=== PATIENT | female | born 1935 | race Caucasian/White ===

== ENCOUNTER 2018-08-18 09:26 | Emergency (ER) | payer MEDICARE, OTHER ==
--- NOTE | 2018-08-18 10:07 | ERPHSYRPT ---
- History of Present Illness Time Seen by Provider: 08/18/18 09:55 Source: patient, family Exam Limitations: no limitations Patient Subjective Stated Complaint: bilateral leg swelling, left arm swollen, heart burn, left shoulder pain Triage Nursing Assessment: Pt c/o of bilateral leg swelling, breasts swollen, left arm swelling, heartburn, left shoulder pain, non pitting, skin tight in legs, lungs clear, denies shortness of breath, denies any other problems, vitals wnl, pulses good Physician History: The patient is an 83-year-old female with her daughter complaining of swelling in both legs, swelling to her left hand, arm, shoulder, pain in her left shoulder, pain in her left neck. The swelling and pain has been for 2 weeks. She also has some heartburn. She has swelling across her breasts. She has intermittent shortness of breath when she gets up and moves around. She denies cough or fever. Her calves are "tight". The back of her legs feel "weak". She lives alone. Her past medical history is significant for HTN. Timing/Duration: week(s) (2), gradual onset Severity: mild Modifying Factors: Improves With: nothing Associated Symptoms: shortness of breath, heartburn Allergies/Adverse Reactions: meperidine [From Demerol] Allergy (Verified 08/18/18 09:41) cefaclor [From Ceclor] Adverse Reaction (Verified 08/18/18 09:41) Vomiting Penicillins Adverse Reaction (Verified 08/18/18 09:41) shakes Home Medications: Enalapril/Hydrochlorothiazide [Enalapril-Hctz 10-25 mg Tablet] 1 each PO DAILY 01/23/14 [History] Metoprolol Succinate 50 mg [Toprol Xl 50 MG] 50 mg PO DAILY 01/23/14 [ History] Potassium Chloride 10 Meq Tab* [Klor Con 10 MEQ] 10 meq PO DAILY 01/23/14 [ History] Hx Tetanus, Diphtheria Vaccination/Date Given: No Hx Influenza Vaccination/Date Given: No Hx Pneumococcal Vaccination/Date Given: No - Review of Systems Constitutional: Weakness (back of her legs) Eyes: No Symptoms Ears, Nose, & Throat: No Symptoms Respiratory: Dyspnea on Exertion (LU) Cardiac: Edema Abdominal/Gastrointestinal: No Abdominal Pain, No Nausea, No Vomiting, No Diarrhea Genitourinary Symptoms: No Dysuria Musculoskeletal: No Back Pain, No Neck Pain Skin: No Rash Neurological: No Dizziness, No Focal Weakness, No Sensory Changes Psychological: No Symptoms Endocrine: No Symptoms Hematologic/Lymphatic: No Symptoms Immunological/Allergic: No Symptoms All Other Systems: Reviewed and Negative - Past Medical History Pertinent Past Medical History: Yes Cardiac History: High Cholesterol, Hypertension - Past Surgical History Past Surgical History: Yes Gastrointestinal: Cholecystectomy Musculoskeletal: Orthopedic Surgery Female Surgical History: Hysterectomy Other Surgical History: Lamenectomy, Rotator Cuff-Left, Back Surgery - Social History Smoking Status: Never smoker Exposure to second hand smoke: No Drug Use: none Patient Lives Alone: Yes - Female History Hx Now: No - Nursing Vital Signs Nursing Vital Signs: Initial Vital Signs Temperature 98.2 F 08/18/18 09:29 Pulse Rate 73 08/18/18 09:29 Respiratory Rate 19 08/18/18 09:29 Blood Pressure 127/80 08/18/18 09:29 O2 Sat by Pulse Oximetry 98 08/18/18 09:29 Pain Scale Pain Intensity 0 - Physical Exam General Appearance: no apparent distress, alert Eye Exam: PERRL/EOMI, eyes nml inspection Ears, Nose, Throat Exam: normal ENT inspection, TMs normal, pharynx normal, moist mucous membranes Neck Exam: supple, limited range of motion, other (tenderness and spasm of left lateral muscle) Respiratory Exam: normal breath sounds, lungs clear, No respiratory distress, No crackles/rales, No rhonchi, No wheezing Cardiovascular Exam: regular rate/rhythm, normal heart sounds, normal peripheral pulses Gastrointestinal/Abdomen Exam: soft, normal bowel sounds, No tenderness, No mass Pelvic Exam: not done Rectal Exam: not done Back Exam: normal inspection, normal range of motion, No CVA tenderness, No vertebral tenderness Extremity Exam: swelling (Even though the patient states that both of her lower legs are swollen, there appears not to be any edema at the ankles. There is no pittingf the anterior lower legs. The patient points to a small spot to the thumb side of her left wrist that she states is swollen. In comparison to the right wrist, there may be some very mild swelling. The left arm does not appear to me to be swollen in comparison to the right arm. The left side of her neck does not seem to be swollen.) Neurologic Exam: alert, oriented x 3, cooperative, normal mood/affect, nml cerebellar function, nml station & gait, sensation nml, No motor deficits Skin Exam: normal color, warm, dry, No rash Lymphatic Exam: No adenopathy SpO2 Interpretation: normal SpO2: 98 Oxygen Delivery: Room Air - Course EKG Interpreted by Me: RATE, Sinus Rhythm, NORMAL AXIS, NORMAL INTERVALS, NORMAL QRS, NORMAL ST-T - Radiology Exams Chest X-ray Interpretation: Reviewed by me, Teleradiologist Report (per Dr Fernandes), Negative - Radiology Ultrasound Exam Venous Lower Extremity Ultrasound: tele radiology report (per [facility]), negative, Other (no DVT) Ordered Tests: Active Orders 24 hr Category Date Time Status Candy Maker Helper STAT Care 08/18/18 10:08 Active Clean Catch Urine Specimen STAT Care 08/18/18 10:06 Active EKG-ER Only STAT Care 08/18/18 10:06 Active IV Insertion STAT Care 08/18/18 10:06 Active Pulse Oximetry (ED) STAT Care 08/18/18 10:06 Active CHEST 2 VIEWS (PA AND LAT) Stat Exams 08/18/18 10:07 Completed VENOUS BILATERAL EXTREMITY [US] Stat Exams 08/18/18 10:58 Completed CBC W DIFF Stat Lab 08/18/18 10:23 Completed CMP Stat Lab 08/18/18 10:23 Completed D-DIMER QUANTITATION Stat Lab 08/18/18 10:23 Completed Lactic Acid Stat Lab 08/18/18 10:30 Results NT PRO BNP Stat Lab 08/18/18 10:23 Completed PROTIME WITH INR Stat Lab 08/18/18 10:23 Completed TROPONIN Q3H Lab 08/18/18 10:23 Completed TROPONIN Q3H Lab 08/18/18 13:15 Ordered TROPONIN Q3H Lab 08/18/18 16:15 Ordered TROPONIN Q3H Lab 08/18/18 19:15 Ordered TROPONIN Q3H Lab 08/18/18 22:15 Ordered UA W/RFX UR CULTURE Stat Lab 08/18/18 10:23 Completed Lab/Rad Data: Laboratory Result Diagrams 08/18/18 10:23 08/18/18 10:23 Laboratory Results 08/18/18 08/18/18 08/18/18 Range/Units 10:30 10:23 10:23 WBC (4.0-10.5) K/mm3 RBC (4.1-5.4) M/mm3 Hgb (12.0-16.0) gm/dl Hct (35-47) % MCV (78-100) fl MCH (26-32) pg MCHC (32-36) g/dl RDW (11.5-14.0) % Plt Count (150-450) K/mm3 MPV (6-9.5) fl Gran % (36.0-66.0) % Eos # (Auto) (0-0.5) Absolute Lymphs (auto) (1.0-4.6) Absolute Monos (auto) (0.0-1.3) Lymphocytes % (24.0-44.0) % Monocytes % (0.0-12.0) % Eosinophils % (0.00-5.0) % Basophils % (0.0-0.4) % Absolute Granulocytes (1.4-6.9) Basophils # (0-0.4) PT (9.95-12.35) SECONDS INR (0.8-3.0) D-Dimer (215-500) ng/mL Sodium (137-145) mmol/L Potassium (3.5-5.1) mmol/L Chloride (98-107) mmol/L Carbon Dioxide (22-30) mmol/L Anion Gap (5-15) MEQ/L BUN (7-17) mg/dL Creatinine (0.52-1.04) mg/dL Estimated GFR ML/MIN Glucose (74-106) mg/dL Lactic Acid 2.2 H (0.4-2.0) Calcium (8.4-10.2) mg/dL Total Bilirubin (0.2-1.3) mg/dL AST (14-36) U/L ALT (0-35) U/L Alkaline Phosphatase (38-126) U/L Troponin I 0.013 (0.000-0.034) ng/mL NT-Pro-B Natriuret Pep (0-1800) pg/mL Serum Total Protein (6.3-8.2) g/dL Albumin (3.5-5.0) g/dL Urine Color STRAW (YELLOW) Urine Appearance SLIGHTLY CLOUDY (CLEAR) Urine pH 5.0 (5-6) Ur Specific Calhoun 1.006 (1.005-1.025) Urine Protein NEGATIVE (Negative) Urine Ketones NEGATIVE (NEGATIVE) Urine Blood NEGATIVE (0-5) Anibal/ul Urine Nitrite NEGATIVE (NEGATIVE) Urine Bilirubin NEGATIVE (NEGATIVE) Urine Urobilinogen NEGATIVE (0-1) mg/dL Ur Leukocyte Esterase NEGATIVE (NEGATIVE) Urine WBC (Auto) NONE (0-5) /HPF Urine RBC (Auto) NONE SEEN (0-2) /HPF U Epithel Cells (Auto) RARE (FEW) /HPF Urine Bacteria (Auto) RARE (NEGATIVE) /HPF Other Casts (Auto) NEGATIVE (NEGATIVE) /LPF Urine Mucus (Auto) SLIGHT (NEGATIVE) /HPF Urine Culture Reflexed NO (NO) Urine Glucose NEGATIVE (NEGATIVE) mg/dL 08/18/18 08/18/18 08/18/18 Range/Units 10:23 10:23 10:23 WBC 7.1 (4.0-10.5) K/mm3 RBC 4.69 (4.1-5.4) M/mm3 Hgb 15.5 (12.0-16.0) gm/dl Hct 45.3 (35-47) % MCV 96.6 (78-100) fl MCH 33.0 H (26-32) pg MCHC 34.2 (32-36) g/dl RDW 12.7 (11.5-14.0) % Plt Count 234 (150-450) K/mm3 MPV 11.1 H (6-9.5) fl Gran % 56.8 (36.0-66.0) % Eos # (Auto) 0.04 (0-0.5) Absolute Lymphs (auto) 2.49 (1.0-4.6) Absolute Monos (auto) 0.50 (0.0-1.3) Lymphocytes % 34.9 (24.0-44.0) % Monocytes % 7.0 (0.0-12.0) % Eosinophils % 0.6 (0.00-5.0) % Basophils % 0.7 (0.0-0.4) % Absolute Granulocytes 4.05 (1.4-6.9) Basophils # 0.05 (0-0.4) PT 10.5 (9.95-12.35) SECONDS INR 0.90 (0.8-3.0) D-Dimer 282 (215-500) ng/mL Sodium 139 (137-145) mmol/L Potassium 4.8 (3.5-5.1) mmol/L Chloride 101 (98-107) mmol/L Carbon Dioxide 25 (22-30) mmol/L Anion Gap 17.4 H (5-15) MEQ/L BUN 19 H (7-17) mg/dL Creatinine 0.63 (0.52-1.04) mg/dL Estimated GFR > 60.0 ML/MIN Glucose 101 (74-106) mg/dL Lactic Acid (0.4-2.0) Calcium 9.5 (8.4-10.2) mg/dL Total Bilirubin 0.80 (0.2-1.3) mg/dL AST 39 H (14-36) U/L ALT 28 (0-35) U/L Alkaline Phosphatase 70 (38-126) U/L Troponin I (0.000-0.034) ng/mL NT-Pro-B Natriuret Pep 223 (0-1800) pg/mL Serum Total Protein 8.1 (6.3-8.2) g/dL Albumin 4.7 (3.5-5.0) g/dL Urine Color (YELLOW) Urine Appearance (CLEAR) Urine pH (5-6) Ur Specific Calhoun (1.005-1.025) Urine Protein (Negative) Urine Ketones (NEGATIVE) Urine Blood (0-5) Anibal/ul Urine Nitrite (NEGATIVE) Urine Bilirubin (NEGATIVE) Urine Urobilinogen (0-1) mg/dL Ur Leukocyte Esterase (NEGATIVE) Urine WBC (Auto) (0-5) /HPF Urine RBC (Auto) (0-2) /HPF U Epithel Cells (Auto) (FEW) /HPF Urine Bacteria (Auto) (NEGATIVE) /HPF Other Casts (Auto) (NEGATIVE) /LPF Urine Mucus (Auto) (NEGATIVE) /HPF Urine Culture Reflexed (NO) Urine Glucose (NEGATIVE) mg/dL - Progress Progress: unchanged Progress Note: 08/18/18 11:58 I discussed all of the laboratory results and imaging studies with Dr. Rueda and with the patient. There is no clear indication of why patient has complaints of leg swelling. Dr Rueda will see the patient on Saturday. Discussed with .: Claudine Will see patient in: office (will see pt on Wed in office.) Counseled pt/family regarding: lab results, diagnosis, need for follow-up, rad results - Departure Time of Disposition: 11:51 Departure Disposition: Home Clinical Impression: Swelling, Neck muscle spasm Condition: Stable Critical Care Time: No Referrals: JASON RUEDA MD [Primary Care Provider] - Additional Instructions: You have some swelling in her legs and left hand. The cause of your swelling is unknown at this time. I spoke with Dr Rueda and he would like to see you on Saturday for further testing. You also have neck muscle tenderness and spasm. Take Flexeril 5 mg every 8 hours as needed. Prescriptions: Cyclobenzaprine HCl [Flexeril] 5 mg PO Q8H PRN PRN #10 tablet PRN Reason: Pain
[2018-08-18 10:34] LABS: Lactic Acid 2.2 (0.4-2.0)
[2018-08-18 10:36] LABS: BASOPHIL % 0.7 % (0.0-0.4); Basophil (Absolute #) 0.05 (0-0.4); Eosinophil % 0.6 % (0.00-5.0); Eosinophil (Absolute #) 0.04 (0-0.5); Granulocyte Absolute (ANC) 4.05 (1.4-6.9); Granulocytes % 56.8 % (36.0-66.0); Hematocrit 45.3 % (35-47); Hemoglobin 15.5 gm/dl (12.0-16.0); Lymphocyte (Absolute #) 2.49 (1.0-4.6); Lymphocytes % 34.9 % (24.0-44.0); Mean Cell Volume 96.6 fl (78-100); Mean Corpuscular Hgb Concent. 34.2 g/dl (32-36); Mean Platelet Volume 11.1 fl (6-9.5); Platelet Count 234 K/mm3 (150-450); Red Blood Count 4.69 M/mm3 (4.1-5.4); Red Cell Distribution Width 12.7 % (11.5-14.0); White Blood Count 7.1 K/mm3 (4.0-10.5)
[2018-08-18 10:43] LABS: Appearance SLIGHTLY CLOUDY (CLEAR); Bilirubin NEGATIVE (NEGATIVE); Blood NEGATIVE Ery/ul (0-5); Glucose NEGATIVE (NEGATIVE); Ketones NEGATIVE (NEGATIVE); Leukocyte Esterase NEGATIVE (NEGATIVE); Nitrite NEGATIVE (NEGATIVE); Protein,Urine Dip NEGATIVE (Negative); Specific Gravity 1.006 (1.005-1.025); Urobilinogen NEGATIVE mg/dL (0-1)
[2018-08-18 10:49] LABS: INR 0.9 (0.8-3.0)
--- NOTE | 2018-08-18 10:49 | XRAY ---
Indication: Short of breath. Edema. Comparison: None PA/lateral chest is clear with incidental left upper lobe calcified granuloma. Heart and mediastinal structures within normal limits. Bony thorax intact with mild degenerative changes. Impression: Nonacute chest with chronic features.
[2018-08-18 11:04] LABS: ALBUMIN 4.7 g/dL (3.5-5.0); ALKALINE PHOSPHATASE 70 U/L (38-126); ANION GAP 17.4 MEQ/L (5-15); BLOOD UREA NITROGEN 19 mg/dL (7-17); CHLORIDE 101 mmol/L (98-107); Calcium 9.5 mg/dL (8.4-10.2); Carbon Dioxide 25 mmol/L (22-30); Creatinine 1 0.63 mg/dL (0.52-1.04); Glucose 101 mg/dL (74-106); NT PRO BNP 223 pg/mL (0-1800); SGOT/AST 39 U/L (14-36); SGPT/ALT 28 U/L (0-35); SODIUM 139 mmol/L (137-145); Total Protein 8.1 g/dL (6.3-8.2)
[2018-08-18 11:09] LABS: Potassium 4.8 mmol/L (3.5-5.1)
--- NOTE | 2018-08-18 11:11 | XRAY ---
Indication: Bilateral edema. Two-dimensional sonogram and color Doppler imaging of the major venous vessels of the left and right leg was performed. Comparison: November 06, 2016. No thrombus seen in the examined deep venous vessels of the left and right leg including greater saphenous veins. Veins demonstrate normal compressibility. Venous waveforms are normal with and without augmentation. Impression: Left and right legs again negative for DVT.
[2018-08-18 12:09] VITALS: BP 123/61; PULSE 65; O2SAT 96
== END 2018-08-18 12:09 | disposition home or self-care (01) ==
LOC: ED 09:26
DX: M79.89 Other specified soft tissue disorders (principal); M62.830 Muscle spasm of back; M54.2 Cervicalgia; M25.512 Pain in left shoulder; R06.02 Shortness of breath; R12 Heartburn; R53.1 Weakness; I10 Essential (primary) hypertension; Z79.899 Other long term (current) drug therapy
CPT/HCPCS: 36000; 36415; 71046; 80053; 81001; 83605; 83880; 84484; 85025; 85379; 85610; 93005; 93041; 93970; 99284

== ENCOUNTER 2019-08-17 02:27 | Emergency (ER) | payer MEDICARE, OTHER ==
--- NOTE | 2019-08-17 03:23 | ERPHSYRPT ---
- History of Present Illness Time Seen by Provider: 08/17/19 03:23 Source: patient, family Patient Subjective Stated Complaint: pt has been coughing and had sore throat, vomiting and diarrhea for 2 days, now feels weak and tired Triage Nursing Assessment: pt alert and appropriate, states she has no pain at this time Physician History: Pt is here with c/c of feeling nauseated last evening and going to the bathroom in case she vomited. Pt became weak and fell backwards into the wall so she didn 't fall. Pt then began to have vomiting multiple times. Pt also had some diarrhea. Pt's throat is a bit sore as well. Pt did not pass out. Pt has felt like she might have a fever but didn't check it with a thermometer. Timing/Duration: hour(s) (6-8 rs) Severity: moderate Modifying Factors: Improves With: movement Associated Symptoms: nausea, vomiting, abdominal pain, malaise, weakness Allergies/Adverse Reactions: meperidine [From Demerol] Allergy (Verified 08/17/19 03:12) cefaclor [From Ceclor] Adverse Reaction (Verified 08/17/19 03:12) Vomiting Penicillins Adverse Reaction (Verified 08/17/19 03:12) shakes Home Medications: Enalapril/Hydrochlorothiazide [Enalapril-Hctz 10-25 mg Tablet] 1 each PO DAILY 01/23/14 [History] Metoprolol Succinate 50 mg [Toprol Xl 50 MG] 50 mg PO DAILY 01/23/14 [ History] Potassium Chloride 10 Meq Tab* [Klor Con 10 MEQ] 10 meq PO DAILY 01/23/14 [ History] Hx Tetanus, Diphtheria Vaccination/Date Given: No Hx Influenza Vaccination/Date Given: Yes Hx Pneumococcal Vaccination/Date Given: No - Review of Systems Constitutional: Malaise, Weakness Eyes: No Symptoms Ears, Nose, & Throat: No Symptoms, Throat Pain Respiratory: Cough, No Dyspnea Cardiac: No Symptoms Abdominal/Gastrointestinal: Nausea, Vomiting, Diarrhea, No Constipation Genitourinary Symptoms: No Dysuria, No Frequency Musculoskeletal: No Symptoms Skin: No Symptoms Neurological: Dizziness Psychological: No Symptoms Endocrine: No Symptoms All Other Systems: Reviewed and Negative - Past Medical History Pertinent Past Medical History: Yes Neurological History: No Pertinent History ENT History: No Pertinent History Cardiac History: High Cholesterol, Hypertension Respiratory History: No Pertinent History Musculoskeletal History: No Pertinent History GI Medical History: No Pertinent History Psycho-Social History: No Pertinent History - Past Surgical History Past Surgical History: Yes Gastrointestinal: Cholecystectomy Musculoskeletal: Orthopedic Surgery Female Surgical History: Hysterectomy Other Surgical History: Lamenectomy, Rotator Cuff-Left, Back Surgery - Social History Smoking Status: Never smoker Exposure to second hand smoke: No Drug Use: none Patient Lives Alone: Yes - Nursing Vital Signs Nursing Vital Signs: Initial Vital Signs Temperature 97.4 F 08/17/19 02:55 Pulse Rate 64 08/17/19 02:55 Respiratory Rate 18 08/17/19 02:55 Blood Pressure 120/51 08/17/19 02:55 O2 Sat by Pulse Oximetry 97 08/17/19 02:55 Pain Scale Pain Intensity 0 - Physical Exam General Appearance: no apparent distress, alert Eye Exam: PERRL/EOMI, eyes nml inspection, No scleral icterus, No photophobia Ears, Nose, Throat Exam: normal ENT inspection, TMs normal, moist mucous membranes, pharyngeal erythema (mild) Neck Exam: normal inspection Respiratory Exam: normal breath sounds, lungs clear, No chest tenderness, No diminished breath sounds Cardiovascular Exam: regular rate/rhythm, normal heart sounds, normal peripheral pulses, No murmur Gastrointestinal/Abdomen Exam: soft, normal bowel sounds, tenderness (mild ), No distention Pelvic Exam: not done Rectal Exam: not done Back Exam: normal inspection Extremity Exam: normal inspection, normal range of motion Neurologic Exam: alert, oriented x 3, cooperative, drum operator II-XII nml as tested, normal mood/affect, nml cerebellar function Skin Exam: normal color, warm, dry, No rash Lymphatic Exam: No adenopathy SpO2 Interpretation: normal SpO2: 97 O2 Delivery: Room Air Ordered Tests: Active Orders 24 hr Category Date Time Status CHEST 2 VIEWS (PA AND LAT) Stat Exams 08/17/19 03:37 Taken BLOOD CULTURE Stat Lab 08/17/19 04:07 Received CBC W DIFF Stat Lab 08/17/19 04:06 Completed CMP Stat Lab 08/17/19 04:06 Completed Lactic Acid Stat Lab 08/17/19 03:55 Completed Medication Summary Discontinued Medications Generic Name Dose Route Start Last Admin Trade Name Freq PRN Reason Stop Dose Admin Benzonatate 100 mg 08/17/19 05:12 08/17/19 05:30 Tessalon Perles 100 Mg PO 09/16/19 05:11 100 mg TID PRN PRN Administration COUGH Benzonatate Confirm 08/17/19 05:23 Tessalon Perles 100 Mg Administered 08/17/19 05:24 Dose 100 mg PO .STK-MED ONE Sodium Chloride 1,000 mls @ 999 mls/hr 08/17/19 03:35 08/17/19 06:59 Sodium Chloride 0.9% 1000 Ml IV 08/17/19 04:35 Infused .Q1H1M STA Infusion Sodium Chloride Confirm 08/17/19 03:56 Sodium Chloride 0.9% 1000 Ml Administered 08/17/19 03:57 Dose 1,000 mls @ ud .ROUTE .STK-MED ONE Sodium Chloride Confirm 08/17/19 04:04 Sodium Chloride 0.9% 1000 Ml Administered 08/17/19 04:05 Dose 1,000 mls @ ud .ROUTE .STK-MED ONE Azithromycin 500 mg in 250 mls @ 250 mls/hr 08/17/19 05:10 08/17/19 06:59 Zithromax 500 Mg/ 250 Ml Nacl Premix IV 08/17/19 06:09 Infused STAT STA Infusion Azithromycin Confirm 08/17/19 05:15 Zithromax 500 Mg/ 250 Ml Nacl Premix Administered 08/17/19 05:16 Dose 500 mg in 250 mls @ ud IV .STK-MED ONE Ondansetron HCl 4 mg 08/17/19 03:35 08/17/19 04:10 Zofran 4 Mg/2 Ml Vial IV 08/17/19 03:36 4 mg STAT ONE Administration Ondansetron HCl Confirm 08/17/19 03:56 Zofran 4 Mg/2 Ml Vial Administered 08/17/19 03:57 Dose 4 mg .ROUTE .STK-MED ONE Ondansetron HCl Confirm 08/17/19 04:04 Zofran 4 Mg/2 Ml Vial Administered 08/17/19 04:05 Dose 4 mg .ROUTE .STK-MED ONE Prochlorperazine Edisylate 10 mg 08/17/19 05:56 08/17/19 06:00 Compazine 10 Mg/2 Ml IV 08/17/19 05:57 10 mg STAT ONE Administration Prochlorperazine Edisylate Confirm 08/17/19 05:58 Compazine 10 Mg/2 Ml Administered 08/17/19 05:59 Dose 10 mg .ROUTE .STK-MED ONE Lab/Rad Data: Laboratory Result Diagrams 08/17/19 04:06 08/17/19 04:06 Laboratory Results 08/17/19 08/17/19 08/17/19 Range/Units 04:06 04:06 04:06 WBC 14.5 H (4.0-10.5) K/mm3 RBC 4.36 (4.1-5.4) M/mm3 Hgb 14.2 (12.0-16.0) gm/dl Hct 41.2 (35-47) % MCV 94.5 (78-100) fl MCH 32.6 H (26-32) pg MCHC 34.5 (32-36) g/dl RDW 12.7 (11.5-14.0) % Plt Count 199 (150-450) K/mm3 MPV 11.1 H (6-9.5) fl Gran % 89.1 H (36.0-66.0) % Eos # (Auto) 0.01 (0-0.5) Absolute Lymphs (auto) 0.82 L (1.0-4.6) Absolute Monos (auto) 0.72 (0.0-1.3) Lymphocytes % 5.7 L (24.0-44.0) % Monocytes % 5.0 (0.0-12.0) % Eosinophils % 0.1 (0.00-5.0) % Basophils % 0.1 (0.0-0.4) % Absolute Granulocytes 12.94 H (1.4-6.9) Basophils # 0.02 (0-0.4) Sodium 131 L (137-145) mmol/L Potassium 3.5 (3.5-5.1) mmol/L Chloride 96 L (98-107) mmol/L Carbon Dioxide 26 (22-30) mmol/L Anion Gap 11.8 (5-15) MEQ/L BUN 19 H (7-17) mg/dL Creatinine 0.65 (0.52-1.04) mg/dL Estimated GFR > 60.0 ML/MIN Glucose 183 H (74-106) mg/dL Lactic Acid (0.4-2.0) Calcium 9.5 (8.4-10.2) mg/dL Total Bilirubin 0.80 (0.2-1.3) mg/dL AST 25 (14-36) U/L ALT 20 (0-35) U/L Alkaline Phosphatase 68 (38-126) U/L Serum Total Protein 6.7 (6.3-8.2) g/dL Albumin 3.9 (3.5-5.0) g/dL Influenza Type A Ag NEGATIVE (NEGATIVE) Influenza Type B Ag NEGATIVE (NEGATIVE) RSV (PCR) NEGATIVE (Negative) Group A Strep Antibody NEGATIVE (NEGATIVE) 08/17/19 Range/Units 03:55 WBC (4.0-10.5) K/mm3 RBC (4.1-5.4) M/mm3 Hgb (12.0-16.0) gm/dl Hct (35-47) % MCV (78-100) fl MCH (26-32) pg MCHC (32-36) g/dl RDW (11.5-14.0) % Plt Count (150-450) K/mm3 MPV (6-9.5) fl Gran % (36.0-66.0) % Eos # (Auto) (0-0.5) Absolute Lymphs (auto) (1.0-4.6) Absolute Monos (auto) (0.0-1.3) Lymphocytes % (24.0-44.0) % Monocytes % (0.0-12.0) % Eosinophils % (0.00-5.0) % Basophils % (0.0-0.4) % Absolute Granulocytes (1.4-6.9) Basophils # (0-0.4) Sodium (137-145) mmol/L Potassium (3.5-5.1) mmol/L Chloride (98-107) mmol/L Carbon Dioxide (22-30) mmol/L Anion Gap (5-15) MEQ/L BUN (7-17) mg/dL Creatinine (0.52-1.04) mg/dL Estimated GFR ML/MIN Glucose (74-106) mg/dL Lactic Acid 1.7 (0.4-2.0) Calcium (8.4-10.2) mg/dL Total Bilirubin (0.2-1.3) mg/dL AST (14-36) U/L ALT (0-35) U/L Alkaline Phosphatase (38-126) U/L Serum Total Protein (6.3-8.2) g/dL Albumin (3.5-5.0) g/dL Influenza Type A Ag (NEGATIVE) Influenza Type B Ag (NEGATIVE) RSV (PCR) (Negative) Group A Strep Antibody (NEGATIVE) - Progress Progress: improved Progress Note: 08/17/19 06:44 Pt feeling much better after IV normal saline and zofran. 08/17/19 08:21 CXR prldarryn appears to have a few patchy early infiltrates. - Departure Departure Disposition: Home Clinical Impression: Community acquired pneumonia, Vomiting and diarrhea Condition: Good Critical Care Time: No Referrals: JASON RUEDA MD [Primary Care Provider] - Additional Instructions: You will need to start with sips of a clear liquid without caffiene and take a sip or two every 5-10 minutes for a few times then increase to 1 ounce and wait for 15 min's then, if you keep that down you may sip freely on any clear liquid , popsicle, jello broth etc. Then the next 24 hours you may start with adding Bananas, rice, applesauce and toast. I suggest starting with the rice with soy sauce or cooked with a bullion cube. If this food is tolerated then you may add other foods as tolerated. Take Zithromax, tessalon perles, and phenergan as prescribed. Follow up with your primary care Doctor in the next 2-5 days. Return to the ER with emeergent medical problems. Prescriptions: Benzonatate [Tessalon Perle] 100 mg PO Q8HPRN PRN 7 Days #30 capsule PRN Reason: Cough Promethazine HCl 25 mg [Phenergan 25 mg] 25 mg PO Q8H PRN PRN #10 tablet PRN Reason: Nausea/Vomiting Azithromycin 250 mg [Zithromax 250 MG TABLET] 250 mg PO ZPACK #6 tablet
[2019-08-17] MEDS ORDERED: Zofran 4 MG/2 ML VIAL IV ONE (03:35)
[2019-08-17] MEDS ORDERED: Sodium Chloride 0.9% 1000 ML 1,000 ML IV STA (03:35)
[2019-08-17] MEDS ORDERED: Zofran 4 MG/2 ML VIAL ONE ×2 (03:56→04:04)
[2019-08-17] MEDS ORDERED: Sodium Chloride 0.9% 1000 ML 0 ML ONE (03:56)
[2019-08-17] MEDS ORDERED: Sodium Chloride 0.9% 1000 ML 1,000 ML ONE (04:04)
[2019-08-17 04:18] LABS: Absolute Neutrophil Ct (ANC) 12.94 (1.4-6.9); BASOPHIL % 0.1 % (0.0-0.4); Basophil (Absolute #) 0.02 (0-0.4); Eosinophil % 0.1 % (0.00-5.0); Eosinophil (Absolute #) 0.01 (0-0.5); Hematocrit 41.2 % (35-47); Hemoglobin 14.2 gm/dl (12.0-16.0); Lymphocyte (Absolute #) 0.82 (1.0-4.6); Lymphocytes % 5.7 % (24.0-44.0); Mean Cell Volume 94.5 fl (78-100); Mean Corpuscular Hemoglobin 32.6 pg (26-32); Mean Corpuscular Hgb Concent. 34.5 g/dl (32-36); Mean Platelet Volume 11.1 fl (6-9.5); Monocyte (Absolute #) 0.72 (0.0-1.3); Neutrophil % 89.1 % (36.0-66.0); Platelet Count 199 K/mm3 (150-450); Red Blood Count 4.36 M/mm3 (4.1-5.4); Red Cell Distribution Width 12.7 % (11.5-14.0); White Blood Count 14.5 K/mm3 (4.0-10.5)
[2019-08-17 04:22] LABS: ALBUMIN 3.9 g/dL (3.5-5.0); ALKALINE PHOSPHATASE 68 U/L (38-126); ANION GAP 11.8 MEQ/L (5-15); BLOOD UREA NITROGEN 19 mg/dL (7-17); CHLORIDE 96 mmol/L (98-107); Calcium 9.5 mg/dL (8.4-10.2); Carbon Dioxide 26 mmol/L (22-30); Creatinine 1 0.65 mg/dL (0.52-1.04); Glucose 183 mg/dL (74-106); Potassium 3.5 mmol/L (3.5-5.1); SGOT/AST 25 U/L (14-36); SGPT/ALT 20 U/L (0-35); SODIUM 131 mmol/L (137-145); Total Protein 6.7 g/dL (6.3-8.2)
[2019-08-17] MEDS ORDERED: Zithromax 500 MG/ 250 ML NaCl Premix 500 MG/250 ML IVPB IV STA (05:10)
[2019-08-17] MEDS ORDERED: Tessalon Perles 100 MG PO PRN (05:12)
[2019-08-17] MEDS ORDERED: Zithromax 500 MG/ 250 ML NaCl Premix 500 MG/250 ML IVPB IV ONE (05:15)
[2019-08-17 05:20] LABS: INFLUENZA A NEGATIVE (NEGATIVE); INFLUENZA B NEGATIVE (NEGATIVE); RESPIRATORY SYNCTIAL VIRUS NEGATIVE (Negative)
[2019-08-17] MEDS ORDERED: Tessalon Perles 100 MG PO ONE (05:23)
[2019-08-17] MEDS ORDERED: Compazine 10 MG/2 ML IV ONE (05:56)
[2019-08-17] MEDS ORDERED: Compazine 10 MG/2 ML ONE (05:58)
[2019-08-17 07:01] VITALS: BP 106/59; PULSE 78
[2019-08-17 08:22] VITALS: O2SAT 97
--- NOTE | 2019-08-17 09:01 | XRAY ---
Indication: Cough and congestion 3 days. Comparison: August 18, 2018. PA/lateral chest remains clear again with incidental left upper lobe calcified granuloma. Heart is not enlarged. Bony thorax intact again with mild osteopenia and degenerative changes. Impression: Nonacute chest with chronic features.
== END 2019-08-17 07:02 | disposition home or self-care (01) ==
LOC: ED 02:27
DX: J18.9 Pneumonia, unspecified organism (principal); R11.10 Vomiting, unspecified; R19.7 Diarrhea, unspecified; I10 Essential (primary) hypertension; E78.00 Pure hypercholesterolemia, unspecified; Z79.899 Other long term (current) drug therapy
CPT/HCPCS: 36415; 71046; 80053; 83605; 85025; 87040; 87631; 87651; 96360; 96365; 96374; 96375; 99284; J0456; J2405; A9270-GY

== ENCOUNTER 2019-10-24 06:19 | Emergency (ER) | payer MEDICARE, OTHER ==
[2019-10-24] MEDS ORDERED: Sodium Chloride 0.9% 1000 ML 1,000 ML IV STA (06:52)
[2019-10-24] MEDS ORDERED: SUBLIMAZE 100 MCG/2 ML IV ONE (06:52)
--- NOTE | 2019-10-24 06:56 | ERPHSYRPT ---
- History of Present Illness Historian: patient, family Exam Limitations: no limitations Patient Subjective Stated Complaint: Patient states " I went to [facility] and was DX with Rectocele". Patient states "she is having really bad rectal pain that radiates to her vagina". Patient tells pattern chart writer she has another appt next so they can look at her bladder. Patient states the pain started around 0100 and has been constant since in which brought her to ER. Triage Nursing Assessment: Patient arrived to ER with family. Patient ambulated to room and independently. Patient independent with getting undressed. Patient A /O times 4. Patient answers questions appropriately. Patient overall color WNL. Upon visual inspectiio Timing/Duration: today Activities at Onset: none Quality: cramping, stabbing, throbbing Abdominal Pain Onset Location: suprapubic Pain Radiation: no radiation Severity of Pain-Max: moderate Severity of Pain-Current: moderate Modifying Factors: Improves With: nothing Associated Symptoms: denies symptoms Hx Tetanus, Diphtheria Vaccination/Date Given: Yes Hx Influenza Vaccination/Date Given: Yes Hx Pneumococcal Vaccination/Date Given: No Immunizations Up to Date: Yes <KANE RUEDAYESH - Last Filed: 10/24/19 07:13> <GWYN JEAN BAPTISTE - Last Filed: 10/24/19 08:40> - History of Present Illness Time Seen by Provider: 10/24/19 06:54 Physician History: Patient states " I went to [facility] last and was DX with Rectocele". Patient states "she is having really bad rectal pain that radiates to her vagina ". Patient tells pattern chart writer she has another appt next so they can look at her bladder. Patient states the pain started around 0100 and has been constant since in which brought her to ER. Patient denies any fever, nausea vomiting. ( MARYBETH,JASON) Allergies/Adverse Reactions: meperidine [From Demerol] Allergy (Verified 10/24/19 07:25) cefaclor [From Ceclor] Adverse Reaction (Verified 10/24/19 07:25) Vomiting Penicillins Adverse Reaction (Verified 10/24/19 07:25) shakes Home Medications: Enalapril/Hydrochlorothiazide [Enalapril-Hctz 10-25 mg Tablet] 1 each PO DAILY 01/23/14 [History] Metoprolol Succinate 50 mg [Toprol Xl 50 MG] 50 mg PO DAILY 01/23/14 [ History] Potassium Chloride 10 Meq Tab* [Klor Con 10 MEQ] 10 meq PO DAILY 01/23/14 [ History] Estrogens,Conjugated [Premarin] 0.625 mg PO DAILY 10/24/19 [History] - Review of Systems Constitutional: No Fever, No Chills Eyes: No Symptoms Ears, Nose, & Throat: No Symptoms Respiratory: No Cough, No Dyspnea Cardiac: No Chest Pain, No Edema, No Syncope Abdominal/Gastrointestinal: Abdominal Pain, No Nausea, No Vomiting, No Diarrhea , No Constipation, No Appetite Changes Genitourinary Symptoms: Dysuria, Hesitancy, No Hematuria Musculoskeletal: No Back Pain, No Neck Pain Skin: No Rash Neurological: No Dizziness, No Focal Weakness, No Sensory Changes Psychological: No Symptoms Endocrine: No Symptoms All Other Systems: Reviewed and Negative <MARYBETH, - Last Filed: 10/24/19 07:13> - Past Medical History Pertinent Past Medical History: Yes Neurological History: No Pertinent History ENT History: No Pertinent History Cardiac History: High Cholesterol, Hypertension Respiratory History: No Pertinent History Endocrine Medical History: No Pertinent History Musculoskeletal History: No Pertinent History GI Medical History: No Pertinent History History: No Pertinent History Psycho-Social History: No Pertinent History Female Reproductive Disorders: No Pertinent History - Past Surgical History Past Surgical History: Yes Neuro Surgical History: No Pertinent History Cardiac: No Pertinent History Respiratory: No Pertinent History Gastrointestinal: Appendectomy, Cholecystectomy Genitourinary: No Pertinent History Musculoskeletal: Orthopedic Surgery Female Surgical History: Hysterectomy Other Surgical History: Lamenectomy, Rotator Cuff-Left, Back Surgery - Social History Smoking Status: Never smoker Exposure to second hand smoke: Yes Drug Use: none Patient Lives Alone: Yes - Female History Hx Last Menstrual Period: POST Hx Now: No <MARYBETH, - Last Filed: 10/24/19 07:13> - Physical Exam General Appearance: no apparent distress, alert Eye Exam: PERRL/EOMI, eyes nml inspection Ears, Nose, Throat Exam: normal ENT inspection, pharynx normal, moist mucous membranes Neck Exam: normal inspection, non-tender, supple, full range of motion Respiratory Exam: normal breath sounds, lungs clear, No respiratory distress Cardiovascular Exam: regular rate/rhythm, normal heart sounds Gastrointestinal/Abdomen Exam: soft, tenderness (suprapubic area), guarding ( suprapubic area), No distention, No mass Back Exam: normal inspection, normal range of motion, No CVA tenderness, No vertebral tenderness Extremity Exam: normal inspection, normal range of motion, pelvis stable Neurologic Exam: alert, oriented x 3, cooperative, normal mood/affect, nml cerebellar function, sensation nml, No motor deficits Skin Exam: normal color, warm, dry SpO2: 98 <MARYBETH,JASON - Last Filed: 10/24/19 07:13> - Nursing Vital Signs Nursing Vital Signs: Initial Vital Signs Temperature 97.9 F 10/24/19 06:31 Pulse Rate 69 10/24/19 06:31 Respiratory Rate 18 10/24/19 06:31 Blood Pressure 154/76 10/24/19 06:31 O2 Sat by Pulse Oximetry 98 10/24/19 06:31 Pain Scale Pain Intensity 0 - Course Nursing assessment & vital signs reviewed: Yes <MARYBETH,JASON - Last Filed: 10/24/19 07:13> - CT Exams Abdomen/Pelvis CT Interpretation: Tele-radiologist Report, No appendicitis, Other ( diverticulosis, no diverticulitis; atherosclerosis of the abdominal aorta; s/p cholecystectomy with mild pneumobilia; hepatomegaly; right exophytic right renal cyst; bilateral parapelvic renal cysts; no fluid collection; s/p hysterectomy) <GWYN JEAN BAPTISTE - Last Filed: 10/24/19 08:40> Ordered Tests: Active Orders 24 hr Category Date Time Status ABDOMEN AND PELVIS W/0 CONTRAS [CT] Stat Exams 10/24/19 06:53 Taken AMYLASE Stat Lab 10/24/19 07:10 Completed CBC W DIFF Stat Lab 10/24/19 07:10 Completed CMP Stat Lab 10/24/19 07:10 Completed CULTURE,URINE Stat Lab 10/24/19 Uncollected CULTURE,URINE Stat Lab 10/24/19 06:58 Received LIPASE Stat Lab 10/24/19 07:10 Completed UA W/RFX UR CULTURE Stat Lab 10/24/19 06:58 Completed Medication Summary Discontinued Medications Generic Name Dose Route Start Last Admin Trade Name Freq PRN Reason Stop Dose Admin Hydrocodone Bitart/Acetaminophen 1 tab 10/24/19 08:36 10/24/19 08:38 [place] 5/325 Mg PO 10/24/19 08:37 1 tab STAT ONE Administration Fentanyl Citrate 50 mcg 10/24/19 06:52 10/24/19 07:02 Sublimaze 100 Mcg/2 Ml IV 10/24/19 06:53 50 mcg STAT ONE Administration Fentanyl Citrate Confirm 10/24/19 06:59 Sublimaze 100 Mcg/2 Ml Administered 10/24/19 07:00 Dose 100 mcg .ROUTE .STK-MED ONE Sodium Chloride 1,000 mls @ 999 mls/hr 10/24/19 06:52 10/24/19 08:18 Sodium Chloride 0.9% 1000 Ml IV 10/24/19 07:52 Infused .Q1H1M STA Infusion Sodium Chloride Confirm 10/24/19 07:00 Sodium Chloride 0.9% 1000 Ml Administered 10/24/19 07:01 Dose 1,000 mls @ ud .ROUTE .STK-MED ONE Morphine Sulfate 4 mg 10/24/19 08:08 10/24/19 08:39 Morphine Sulfate 4 Mg Inj IV 10/24/19 08:09 Not Given STAT ONE Morphine Sulfate Confirm 10/24/19 08:15 Morphine Sulfate 4 Mg Inj Administered 10/24/19 08:16 Dose 4 mg .ROUTE .STK-MED ONE Phenazopyridine HCl 200 mg 10/24/19 08:36 10/24/19 08:38 Pyridium 200 Mg PO 10/24/19 08:37 200 mg TID ONE Administration Potassium Chloride 40 meq 10/24/19 08:13 10/24/19 08:16 Klor Con 10 Meq PO 10/24/19 08:14 40 meq STAT ONE Administration Potassium Chloride Confirm 10/24/19 08:15 Klor Con 10 Meq Administered 10/24/19 08:16 Dose 40 meq PO .STK-MED ONE Lab/Rad Data: Laboratory Result Diagrams 10/24/19 07:10 10/24/19 07:10 Laboratory Results 10/24/19 10/24/19 10/24/19 Range/Units 07:10 07:10 06:58 WBC 8.5 (4.0-10.5) K/mm3 RBC 3.87 L (4.1-5.4) M/mm3 Hgb 12.6 (12.0-16.0) gm/dl Hct 36.2 (35-47) % MCV 93.5 (78-100) fl MCH 32.6 H (26-32) pg MCHC 34.8 (32-36) g/dl RDW 13.3 (11.5-14.0) % Plt Count 181 (150-450) K/mm3 MPV 10.4 (7.5-11.0) fl Gran % 68.1 H (36.0-66.0) % Eos # (Auto) 0.05 (0-0.5) Absolute Lymphs (auto) 1.91 (1.0-4.6) Absolute Monos (auto) 0.72 (0.0-1.3) Lymphocytes % 22.6 L (24.0-44.0) % Monocytes % 8.5 (0.0-12.0) % Eosinophils % 0.6 (0.00-5.0) % Basophils % 0.2 (0.0-0.4) % Absolute Granulocytes 5.75 (1.4-6.9) Basophils # 0.02 (0-0.4) Sodium 129 L (137-145) mmol/L Potassium 3.2 L (3.5-5.1) mmol/L Chloride 97 L (98-107) mmol/L Carbon Dioxide 26 (22-30) mmol/L Anion Gap 8.7 (5-15) MEQ/L BUN 17 (7-17) mg/dL Creatinine 0.67 (0.52-1.04) mg/dL Estimated GFR > 60.0 ML/MIN Glucose 120 H (74-106) mg/dL Calcium 8.9 (8.4-10.2) mg/dL Total Bilirubin 0.50 (0.2-1.3) mg/dL AST 24 (14-36) U/L ALT 19 (0-35) U/L Alkaline Phosphatase 81 (38-126) U/L Serum Total Protein 6.6 (6.3-8.2) g/dL Albumin 3.7 (3.5-5.0) g/dL Amylase 101 (30-110) U/L Lipase 73 (23-300) U/L Urine Color YELLOW (YELLOW) Urine Appearance CLOUDY (CLEAR) Urine pH 5.0 (5-6) Ur Specific [place] 1.020 (1.005-1.025) Urine Protein NEGATIVE (Negative) Urine Ketones NEGATIVE (NEGATIVE) Urine Blood NEGATIVE (0-5) Anibal/ul Urine Nitrite NEGATIVE (NEGATIVE) Urine Bilirubin NEGATIVE (NEGATIVE) Urine Urobilinogen 2 (0-1) mg/dL Ur Leukocyte Esterase MODERATE (NEGATIVE) Urine WBC (Auto) >100 (0-5) /HPF Urine RBC (Auto) 6-10 (0-2) /HPF U Epithel Cells (Auto) RARE (FEW) /HPF Urine Bacteria (Auto) FEW (NEGATIVE) /HPF Urine Mucus (Auto) SLIGHT (NEGATIVE) /HPF Urine Culture Reflexed YES (NO) Urine Glucose NEGATIVE (NEGATIVE) mg/dL <JASON RUEDA - Last Filed: 10/24/19 07:13> - Progress Progress: improved Counseled pt/family regarding: lab results, diagnosis, need for follow-up, rad results <GWYN JEAN BAPTISTE - Last Filed: 10/24/19 08:40> - Progress Progress Note: 10/24/19 08:09 patient recently told nursing that her pain was 0/10. She now notified nursing that pain has gone up to 7/10. Morphine 4 mg IV times one will be given. 10/24/19 08:22 repeat abdominal exam shows no tenderness, guarding, rebound or CVA tenderness bilaterally. 10/24/19 08:30 patient's care was transferred to [facility] from previous emergency Department attending, Dr. Rueda, for followup of lab work and CT scan imaging for patient had lower abdominal pain who had a confirmed history of a rectocele and also been treated for presumed bladder infection. Patient has seen her urologist 2 days ago who is going to do further testing in the office in 5 days. Labwork was negative for any concerning findings other than a slightly low potassium which was replaced here in the emergency department and urinalysis was consistent with infection, so prescription for Bactrim was sent to her pharmacy. CT scan imaging did not show any significant abnormalities that require immediate surgical attention or inpatient evaluation. Patient as I will be discharged home and follow up with her primary care physician, Dr. Rueda, in 2 days to followup with the urine culture results and check response to therapy. (DANIELASHANIKAGWYN MELANIE) <JASON RUEDA - Last Filed: 10/24/19 07:13> - Departure Departure Disposition: Home Critical Care Time: No <GWYN JEAN BAPTISTE - Last Filed: 10/24/19 08:40> - Departure Clinical Impression: Lower abdominal pain, Acute cystitis without hematuria, Hypokalemia Hypertension Qualifiers: Hypertension type: essential hypertension Qualified Code(s): I10 - Essential ( primary) hypertension Condition: Good Referrals: JASON RUEDA MD [Primary Care Provider] - 10/26/19 Instructions: Hypokalemia (DC), Urinary Tract Infection, Adult (DC), Acute Abdomen (Belly Pain), Adult (DC), Cystocele and Rectocele (DC), Acute Pelvic Pain (DC) Additional Instructions: return immediately back to the emergency room with any worsening abdominal pain , worsening rectal pain, any back pain, new fever, new blood in her stool, new back pain, new weakness, new loss of sensation, or any other concerning signs or symptoms that were not present at today's emergency department for immediate reevaluation in the emergency department. Prescriptions: Hydrocodone/APAP 5-325 Tab^^^ [[place] 5-325 Tablet^^^] 1 tab PO Q6HPRN PRN #8 tablet MDD 6 PRN Reason: Pain Phenazopyridine HCl 200 mg [Pyridium 200 mg] 200 mg PO TID PRN #6 tablet PRN Reason: Pain Smz/Tmp Ds Tablet [Bactrim Ds Tablet] 1 tab PO Q12H #6 tablet
[2019-10-24] MEDS ORDERED: SUBLIMAZE 100 MCG/2 ML ONE (06:59)
[2019-10-24] MEDS ORDERED: Sodium Chloride 0.9% 1000 ML 1,000 ML ONE (07:00)
[2019-10-24 07:19] LABS: Absolute Neutrophil Ct (ANC) 5.75 (1.4-6.9); BASOPHIL % 0.2 % (0.0-0.4); Basophil (Absolute #) 0.02 (0-0.4); Eosinophil % 0.6 % (0.00-5.0); Eosinophil (Absolute #) 0.05 (0-0.5); Hematocrit 36.2 % (35-47); Hemoglobin 12.6 gm/dl (12.0-16.0); Lymphocyte (Absolute #) 1.91 (1.0-4.6); Lymphocytes % 22.6 % (24.0-44.0); Mean Cell Volume 93.5 fl (78-100); Mean Corpuscular Hemoglobin 32.6 pg (26-32); Mean Corpuscular Hgb Concent. 34.8 g/dl (32-36); Mean Platelet Volume 10.4 fl (7.5-11.0); Monocyte (Absolute #) 0.72 (0.0-1.3); Monocytes % 8.5 % (0.0-12.0); Neutrophil % 68.1 % (36.0-66.0); Platelet Count 181 K/mm3 (150-450); Red Blood Count 3.87 M/mm3 (4.1-5.4); Red Cell Distribution Width 13.3 % (11.5-14.0); White Blood Count 8.5 K/mm3 (4.0-10.5)
[2019-10-24 07:21] LABS: Appearance CLOUDY (CLEAR); Bacteria FEW /HPF (NEGATIVE); Bilirubin NEGATIVE (NEGATIVE); Blood NEGATIVE Ery/ul (0-5); Epithelial Cells RARE /HPF (FEW); Glucose NEGATIVE (NEGATIVE); Ketones NEGATIVE (NEGATIVE); Leukocyte Esterase MODERATE (NEGATIVE); Mucus SLIGHT /HPF (NEGATIVE); Nitrite NEGATIVE (NEGATIVE); Protein,Urine Dip NEGATIVE (Negative); Urobilinogen 2 mg/dL (0-1); WBC >100 /HPF (0-5)
[2019-10-24 07:31] LABS: ALBUMIN 3.7 g/dL (3.5-5.0); ALKALINE PHOSPHATASE 81 U/L (38-126); AMYLASE 101 U/L (30-110); ANION GAP 8.7 MEQ/L (5-15); BLOOD UREA NITROGEN 17 mg/dL (7-17); CHLORIDE 97 mmol/L (98-107); Calcium 8.9 mg/dL (8.4-10.2); Carbon Dioxide 26 mmol/L (22-30); Creatinine 1 0.67 mg/dL (0.52-1.04); Glucose 120 mg/dL (74-106); LIPASE 73 U/L (23-300); Potassium 3.2 mmol/L (3.5-5.1); SGOT/AST 24 U/L (14-36); SGPT/ALT 19 U/L (0-35); SODIUM 129 mmol/L (137-145); Total Protein 6.6 g/dL (6.3-8.2)
[2019-10-24 07:46] VITALS: BP 121/55
[2019-10-24 08:02] VITALS: PULSE 56; O2SAT 93
[2019-10-24] MEDS ORDERED: Klor Con 10 MEQ PO ONE ×2 (08:13→08:15)
[2019-10-24] MEDS ORDERED: MORPHINE SULFATE 4 MG INJ ONE (08:15)
[2019-10-24] MEDS: MORPHINE SULFATE 4 MG INJ IV ONE ×2 (08:17→08:39)
[2019-10-24] MEDS ORDERED: NORCO 5/325 MG PO ONE (08:36)
[2019-10-24] MEDS ORDERED: PYRIDIUM 200 MG PO ONE (08:36)
--- NOTE | 2019-10-24 10:30 | XRAY ---
Indication: Pelvic/vaginal pain 2 days. History rectocele. Multiple contiguous axial images obtained through the abdomen and pelvis without contrast as ordered. Comparison: CT renal stone study February 11, 2008. Lung bases demonstrates minimal bilateral dependent atelectasis. No focal infiltrate or effusion. Heart is not enlarged. Again small hiatal hernia. Noncontrasted stomach and bowel loops appear nonobstructed. Again mild scattered sigmoid diverticulosis. Patient reports appendectomy, cholecystectomy, and hysterectomy. No free fluid/air. Minimal pneumobilia. Interval enlarging 3.9 cm right lobe hepatic cyst, previously 2.3 cm. Also enlarging 4.1 cm right renal exophytic cyst, previously 2.6 cm. Remaining liver, pancreas, spleen, adrenal glands, kidneys, ureters, and bladder appear unremarkable for noncontrast exam. Again mild scattered aortoiliac calcifications without AAA. Osseous structures images osteopenia and mild/moderate degenerative changes throughout the thoracolumbar spine. Stable moderate degenerative changes of both hips. Impression: 1. Enlarging hepatic and right renal cysts. CT or abdominal sonogram may yield further information if there remains further clinical concern. 2. Incidental small hiatal hernia, sigmoid diverticulosis, and pneumobilia. 3. Remaining CT abdomen/pelvis without contrast exam is negative. Comment: Preliminary interpretation was made by [facility]. No critical discrepancy.
== END 2019-10-24 08:48 | disposition home or self-care (01) ==
LOC: ED 06:19
DX: R10.30 Lower abdominal pain, unspecified (principal); N30.90 Cystitis, unspecified without hematuria; E87.6 Hypokalemia; I10 Essential (primary) hypertension; Z79.899 Other long term (current) drug therapy; R30.0 Dysuria; E78.00 Pure hypercholesterolemia, unspecified
CPT/HCPCS: 36000; 36415; 74176; 80053; 81001; 82150; 83690; 85025; 87086; 96360; 96374; 99284; J2270; J3010; A9270-GY

== ENCOUNTER 2019-10-30 10:22 | Inpatient (IN) | payer MEDICARE, OTHER ==
--- NOTE | 2019-10-30 10:37 | ERPHSYRPT ---
- History of Present Illness Time Seen by Provider: 10/30/19 10:25 Historian: patient, EMS Exam Limitations: no limitations Physician History: This is an 84-year-old white female who has approximately 1 month history of suprapubic pain some dysuria and bilateral flank pain. Patient underwent a cystoscopy yesterday for her chronic symptoms. She has been on various antibiotics during this time. The patient woke up this morning with worsening flank pain, dizziness and nausea. Patient denies chest pain she denies shortness of breath and does not have significant abdominal pain at this time. Patient was brought in by ambulance service and was given Zofran for her nausea and intravenous fluids were started. The patient was evaluated here in this emergency department on 10/24/2019. At that time the patient complained of rectovaginal pain. A CAT scan of the abdomen and pelvis revealed no acute intra -abdominal or intrapelvic findings. She was diagnosed with a urinary tract infection and was prescribed Pyridium and Bactrim. She has been on Bactrim for the past 6 days. Timing/Duration: today Activities at Onset: none Abdominal Pain Onset Location: flank Pain Radiation: no radiation Severity of Pain-Max: mild Severity of Pain-Current: mild Modifying Factors: Improves With: other (Nausea) Associated Symptoms: back, nausea, weakness, No fever/chills, No shortness of breath, No vomiting Previous symptoms: same symptoms as today Allergies/Adverse Reactions: meperidine [From Demerol] Allergy (Verified 10/24/19 07:25) cefaclor [From Ceclor] Adverse Reaction (Verified 10/24/19 07:25) Vomiting Penicillins Adverse Reaction (Verified 10/24/19 07:25) shakes Home Medications: Enalapril/Hydrochlorothiazide [Enalapril-Hctz 10-25 mg Tablet] 1 each PO DAILY 01/23/14 [History] Metoprolol Succinate 50 mg [Toprol Xl 50 MG] 50 mg PO DAILY 01/23/14 [ History] Potassium Chloride 10 Meq Tab* [Klor Con 10 MEQ] 10 meq PO DAILY 01/23/14 [ History] Estrogens,Conjugated [Premarin] 0.625 mg PO DAILY 10/24/19 [History] Hx Tetanus, Diphtheria Vaccination/Date Given: Yes Hx Influenza Vaccination/Date Given: Yes Hx Pneumococcal Vaccination/Date Given: No - Review of Systems Constitutional: Weakness Eyes: No Symptoms Ears, Nose, & Throat: No Symptoms Respiratory: No Symptoms Cardiac: No Symptoms Abdominal/Gastrointestinal: Nausea Genitourinary Symptoms: Flank Pain Musculoskeletal: No Symptoms Skin: No Symptoms Neurological: Dizziness Psychological: No Symptoms Endocrine: No Symptoms Hematologic/Lymphatic: No Symptoms Immunological/Allergic: No Symptoms All Other Systems: Reviewed and Negative - Past Medical History Pertinent Past Medical History: Yes Neurological History: No Pertinent History ENT History: No Pertinent History Cardiac History: High Cholesterol, Hypertension Respiratory History: No Pertinent History Endocrine Medical History: No Pertinent History Musculoskeletal History: No Pertinent History GI Medical History: No Pertinent History History: No Pertinent History Psycho-Social History: No Pertinent History Female Reproductive Disorders: No Pertinent History - Past Surgical History Past Surgical History: Yes Neuro Surgical History: No Pertinent History Cardiac: No Pertinent History Respiratory: No Pertinent History Gastrointestinal: Appendectomy, Cholecystectomy Genitourinary: No Pertinent History Musculoskeletal: Orthopedic Surgery Female Surgical History: Hysterectomy Other Surgical History: Lamenectomy, Rotator Cuff-Left, Back Surgery - Social History Smoking Status: Never smoker Exposure to second hand smoke: Yes Drug Use: none Patient Lives Alone: Yes - Nursing Vital Signs Nursing Vital Signs: Initial Vital Signs Temperature 97.3 F 10/30/19 10:23 Pulse Rate 85 10/30/19 10:23 Respiratory Rate 18 10/30/19 10:23 Blood Pressure 132/55 10/30/19 10:23 O2 Sat by Pulse Oximetry 97 10/30/19 10:23 Pain Scale Pain Intensity 4 - Physical Exam General Appearance: mild distress, alert, anxiety Eye Exam: PERRL/EOMI, eyes nml inspection Ears, Nose, Throat Exam: dry mucous membranes Neck Exam: normal inspection, non-tender, supple, full range of motion Respiratory Exam: normal breath sounds, lungs clear, airway intact, No chest tenderness, No respiratory distress Cardiovascular Exam: regular rate/rhythm, normal heart sounds, normal peripheral pulses Gastrointestinal/Abdomen Exam: soft, normal bowel sounds, No tenderness Pelvic Exam: not done Rectal Exam: not done Back Exam: normal inspection, normal range of motion, CVA tenderness, No vertebral tenderness Extremity Exam: normal inspection, normal range of motion, pelvis stable Neurologic Exam: alert, oriented x 3, cooperative, radiology technologist II-XII nml as tested Skin Exam: normal color, warm, dry Lymphatic Exam: No adenopathy SpO2 Interpretation: normal SpO2: 97 O2 Delivery: Room Air - Course Nursing assessment & vital signs reviewed: Yes EKG Interpreted by Me: RATE (102), Sinus Tach, NORMAL AXIS, NORMAL INTERVALS, NORMAL QRS, Other (No comparison EKG) Ordered Tests: Active Orders 24 hr Category Date Time Status EKG-ER Only STAT Care 10/30/19 10:46 Active IV Insertion STAT Care 10/30/19 10:40 Active AMYLASE Stat Lab 10/30/19 10:52 Completed BLOOD CULTURE Stat Lab 10/30/19 11:20 Received CBC W DIFF Stat Lab 10/30/19 10:52 Completed CMP Stat Lab 10/30/19 10:52 Completed CULTURE,URINE Stat Lab 10/30/19 10:45 Ordered LIPASE Stat Lab 10/30/19 10:52 Completed Lactic Acid Stat Lab 10/30/19 11:06 Completed TROPONIN Q3H Lab 10/30/19 10:52 Completed TROPONIN Q3H Lab 10/30/19 13:45 Ordered TROPONIN Q3H Lab 10/30/19 16:45 Ordered TROPONIN Q3H Lab 10/30/19 19:45 Ordered TROPONIN Q3H Lab 10/30/19 22:45 Ordered UA W/RFX UR CULTURE Stat Lab 10/30/19 10:45 Completed Transfer Order Routine Transfer 10/30/19 Ordered Medication Summary Discontinued Medications Generic Name Dose Route Start Last Admin Trade Name Freq PRN Reason Stop Dose Admin Ondansetron HCl 4 mg 10/30/19 10:40 10/30/19 10:49 Zofran 4 Mg/2 Ml Vial IV 10/30/19 10:41 4 mg STAT ONE Administration Ondansetron HCl Confirm 10/30/19 10:47 Zofran 4 Mg/2 Ml Vial Administered 10/30/19 10:48 Dose 4 mg .ROUTE .STK-MED ONE Lab/Rad Data: Laboratory Result Diagrams 10/30/19 10:52 10/30/19 10:52 Laboratory Results 10/30/19 10/30/19 10/30/19 Range/Units 11:06 10:52 10:52 WBC (4.0-10.5) K/mm3 RBC (4.1-5.4) M/mm3 Hgb (12.0-16.0) gm/dl Hct (35-47) % MCV (78-100) fl MCH (26-32) pg MCHC (32-36) g/dl RDW (11.5-14.0) % Plt Count (150-450) K/mm3 MPV (7.5-11.0) fl Gran % (36.0-66.0) % Eos # (Auto) (0-0.5) Absolute Lymphs (auto) (1.0-4.6) Absolute Monos (auto) (0.0-1.3) Lymphocytes % (24.0-44.0) % Monocytes % (0.0-12.0) % Eosinophils % (0.00-5.0) % Basophils % (0.0-0.4) % Absolute Granulocytes (1.4-6.9) Basophils # (0-0.4) Sodium 133 L (137-145) mmol/L Potassium 3.5 (3.5-5.1) mmol/L Chloride 98 (98-107) mmol/L Carbon Dioxide 24 (22-30) mmol/L Anion Gap 13.9 (5-15) MEQ/L BUN 21 H (7-17) mg/dL Creatinine 0.62 (0.52-1.04) mg/dL Estimated GFR > 60.0 ML/MIN Glucose 141 H (74-106) mg/dL Lactic Acid 3.6 H (0.4-2.0) Calcium 9.0 (8.4-10.2) mg/dL Total Bilirubin 0.60 (0.2-1.3) mg/dL AST 79 H (14-36) U/L ALT 52 H (0-35) U/L Alkaline Phosphatase 70 (38-126) U/L Troponin I < 0.012 (0.000-0.034) ng/mL Serum Total Protein 6.7 (6.3-8.2) g/dL Albumin 3.9 (3.5-5.0) g/dL Amylase 112 H (30-110) U/L Lipase 54 (23-300) U/L Urine Color (YELLOW) Urine Appearance (CLEAR) Urine pH (5-6) Ur Specific [place] (1.005-1.025) Urine Protein (Negative) Urine Ketones (NEGATIVE) Urine Blood (0-5) Anibal/ul Urine Nitrite (NEGATIVE) Urine Bilirubin (NEGATIVE) Urine Urobilinogen (0-1) mg/dL Ur Leukocyte Esterase (NEGATIVE) Urine WBC (Auto) (0-5) /HPF Urine RBC (Auto) (0-2) /HPF U Epithel Cells (Auto) (FEW) /HPF Urine Bacteria (Auto) (NEGATIVE) /HPF Urine Mucus (Auto) (NEGATIVE) /HPF Urine Culture Reflexed (NO) Urine Glucose (NEGATIVE) mg/dL Slides for Path Review 10/30/19 10/30/19 Range/Units 10:52 10:45 WBC 13.5 H (4.0-10.5) K/mm3 RBC 4.02 L (4.1-5.4) M/mm3 Hgb 13.2 (12.0-16.0) gm/dl Hct 38.1 (35-47) % MCV 94.8 (78-100) fl MCH 32.8 H (26-32) pg MCHC 34.6 (32-36) g/dl RDW 13.0 (11.5-14.0) % Plt Count 205 (150-450) K/mm3 MPV 10.2 (7.5-11.0) fl Gran % 96.0 H (36.0-66.0) % Eos # (Auto) 0 (0-0.5) Absolute Lymphs (auto) 0.17 L (1.0-4.6) Absolute Monos (auto) 0.35 (0.0-1.3) Lymphocytes % 1.3 L (24.0-44.0) % Monocytes % 2.6 (0.0-12.0) % Eosinophils % 0.0 (0.00-5.0) % Basophils % 0.1 (0.0-0.4) % Absolute Granulocytes 12.92 H (1.4-6.9) Basophils # 0.02 (0-0.4) Sodium (137-145) mmol/L Potassium (3.5-5.1) mmol/L Chloride (98-107) mmol/L Carbon Dioxide (22-30) mmol/L Anion Gap (5-15) MEQ/L BUN (7-17) mg/dL Creatinine (0.52-1.04) mg/dL Estimated GFR ML/MIN Glucose (74-106) mg/dL Lactic Acid (0.4-2.0) Calcium (8.4-10.2) mg/dL Total Bilirubin (0.2-1.3) mg/dL AST (14-36) U/L ALT (0-35) U/L Alkaline Phosphatase (38-126) U/L Troponin I (0.000-0.034) ng/mL Serum Total Protein (6.3-8.2) g/dL Albumin (3.5-5.0) g/dL Amylase (30-110) U/L Lipase (23-300) U/L Urine Color YELLOW (YELLOW) Urine Appearance CLEAR (CLEAR) Urine pH 5.0 (5-6) Ur Specific [place] 1.015 (1.005-1.025) Urine Protein NEGATIVE (Negative) Urine Ketones NEGATIVE (NEGATIVE) Urine Blood SMALL (0-5) Anibal/ul Urine Nitrite NEGATIVE (NEGATIVE) Urine Bilirubin NEGATIVE (NEGATIVE) Urine Urobilinogen NEGATIVE (0-1) mg/dL Ur Leukocyte Esterase NEGATIVE (NEGATIVE) Urine WBC (Auto) NONE (0-5) /HPF Urine RBC (Auto) NONE SEEN (0-2) /HPF U Epithel Cells (Auto) NONE (FEW) /HPF Urine Bacteria (Auto) NONE (NEGATIVE) /HPF Urine Mucus (Auto) SLIGHT (NEGATIVE) /HPF Urine Culture Reflexed ORDERED SEPARATELY (NO) Urine Glucose NEGATIVE (NEGATIVE) mg/dL Slides for Path Review - Progress Progress: improved, re-examined Progress Note: 10/30/19 12:[address] Rueda and I reviewed the patient history, condition and laboratory results. I also reviewed the patient's EKG results. We have decided that the patient would be best served with an observation status admission. The patient will receive IV hydration repeat laboratory data. Dr. Rueda states do not start any IV antibiotics at this time. Discussed with : Ras Counseled pt/family regarding: lab results, diagnosis - Departure Departure Disposition: Observation Clinical Impression: Dehydration, Weakness, Nausea Condition: Stable Critical Care Time: No Referrals: JASON RUEDA MD [Primary Care Provider] -
[2019-10-30] MEDS ORDERED: Zofran 4 MG/2 ML VIAL IV ONE (10:40)
[2019-10-30] MEDS ORDERED: Zofran 4 MG/2 ML VIAL ONE (10:47)
[2019-10-30 11:03] LABS: Absolute Neutrophil Ct (ANC) 12.92 (1.4-6.9); BASOPHIL % 0.1 % (0.0-0.4); Basophil (Absolute #) 0.02 (0-0.4); Eosinophil (Absolute #) 0 (0-0.5); Hematocrit 38.1 % (35-47); Hemoglobin 13.2 gm/dl (12.0-16.0); Lymphocyte (Absolute #) 0.17 (1.0-4.6); Lymphocytes % 1.3 % (24.0-44.0); Mean Cell Volume 94.8 fl (78-100); Mean Corpuscular Hemoglobin 32.8 pg (26-32); Mean Corpuscular Hgb Concent. 34.6 g/dl (32-36); Mean Platelet Volume 10.2 fl (7.5-11.0); Monocyte (Absolute #) 0.35 (0.0-1.3); Monocytes % 2.6 % (0.0-12.0); Platelet Count 205 K/mm3 (150-450); Red Blood Count 4.02 M/mm3 (4.1-5.4); White Blood Count 13.5 K/mm3 (4.0-10.5)
[2019-10-30 11:11] LABS: Appearance CLEAR (CLEAR); Bilirubin NEGATIVE (NEGATIVE); Blood SMALL Ery/ul (0-5); Glucose NEGATIVE (NEGATIVE); Ketones NEGATIVE (NEGATIVE); Leukocyte Esterase NEGATIVE (NEGATIVE); Mucus SLIGHT /HPF (NEGATIVE); Nitrite NEGATIVE (NEGATIVE); Protein,Urine Dip NEGATIVE (Negative); Specific Gravity 1.015 (1.005-1.025); Urobilinogen NEGATIVE mg/dL (0-1)
[2019-10-30 11:17] LABS: RBC NONE SEEN /HPF (0-2)
[2019-10-30 11:18] LABS: ALBUMIN 3.9 g/dL (3.5-5.0); ALKALINE PHOSPHATASE 70 U/L (38-126); AMYLASE 112 U/L (30-110); ANION GAP 13.9 MEQ/L (5-15); BLOOD UREA NITROGEN 21 mg/dL (7-17); CHLORIDE 98 mmol/L (98-107); Carbon Dioxide 24 mmol/L (22-30); Creatinine 1 0.62 mg/dL (0.52-1.04); Glucose 141 mg/dL (74-106); LIPASE 54 U/L (23-300); Potassium 3.5 mmol/L (3.5-5.1); SGOT/AST 79 U/L (14-36); SGPT/ALT 52 U/L (0-35); SODIUM 133 mmol/L (137-145); Total Protein 6.7 g/dL (6.3-8.2)
[2019-10-30] MEDS ORDERED: Zofran 4 MG/2 ML VIAL IV PRN (14:54)
[2019-10-30] MEDS: TYLENOL 325 MG PO PRN ×2 (15:18→20:02)
[2019-10-30] MEDS ORDERED: Zestril 10 MG PO SCH (18:00)
[2019-10-30] MEDS: Vasotec 10 MG PO SCH (18:48)
[2019-10-30] MEDS: Sodium Chloride 0.9% 1000 ML 1,000 ML IV SCH (18:48)
[2019-10-30] MEDS: hydroDIURIL 25 MG PO SCH (18:48)
[2019-10-30] MEDS: Klor Con 10 MEQ PO SCH (18:48)
[2019-10-30] MEDS: Toprol Xl 50 MG PO SCH (19:20)
[2019-10-30] MEDS: Macrobid 100MG Capsule PO SCH (23:48)
[2019-10-31 05:04] LABS: ALBUMIN 3.3 g/dL (3.5-5.0); ALKALINE PHOSPHATASE 57 U/L (38-126); ANION GAP 10.4 MEQ/L (5-15); BLOOD UREA NITROGEN 14 mg/dL (7-17); CHLORIDE 99 mmol/L (98-107); Calcium 8.5 mg/dL (8.4-10.2); Carbon Dioxide 26 mmol/L (22-30); Creatinine 1 0.64 mg/dL (0.52-1.04); Glucose 110 mg/dL (74-106); Potassium 3.4 mmol/L (3.5-5.1); SGOT/AST 73 U/L (14-36); SGPT/ALT 79 U/L (0-35); SODIUM 133 mmol/L (137-145); Total Protein 5.9 g/dL (6.3-8.2)
[2019-10-31 05:05] LABS: Hematocrit 36.9 % (35-47); Hemoglobin 12.5 gm/dl (12.0-16.0); Mean Cell Volume 95.6 fl (78-100); Mean Corpuscular Hemoglobin 32.4 pg (26-32); Mean Corpuscular Hgb Concent. 33.9 g/dl (32-36); Mean Platelet Volume 10.5 fl (7.5-11.0); Platelet Count 201 K/mm3 (150-450); Red Blood Count 3.86 M/mm3 (4.1-5.4); Red Cell Distribution Width 13.4 % (11.5-14.0)
--- NOTE | 2019-10-31 07:41 | PCM.HP ---
History of Present Illness - Chief Complaint Chief Complaint: weakness History of Present Illness: This is an 84-year-old white female who has approximately 1 month history of suprapubic pain some dysuria and bilateral flank pain. Patient underwent a cystoscopy yesterday for her chronic symptoms. She has been on various antibiotics during this time. The patient woke up this morning with worsening flank pain, dizziness and nausea. Patient denies chest pain she denies shortness of breath and does not have significant abdominal pain at this time. Patient was brought in by ambulance service and was given Zofran for her nausea and intravenous fluids were started. The patient was evaluated here in this emergency department on 10/24/2019. At that time the patient complained of rectovaginal pain. A CAT scan of the abdomen and pelvis revealed no acute intra -abdominal or intrapelvic findings. She was diagnosed with a urinary tract infection and was prescribed Pyridium and Bactrim. She has been on Bactrim for the past 6 days. - Review of Systems Constitutional: No Fever, No Chills Eyes: No Symptoms Ears, Nose, & Throat: No Symptoms Respiratory: No Cough, No Short Of Breath Cardiac: No Chest Pain, No Edema, No Syncope Abdominal/Gastrointestinal: No Abdominal Pain, No Nausea, No Vomiting, No Diarrhea Genitourinary Symptoms: No Dysuria Musculoskeletal: No Back Pain, No Neck Pain Skin: No Rash Neurological: No Dizziness, No Focal Weakness, No Sensory Changes Psychological: No Symptoms Endocrine: No Symptoms Hematologic/Lymphatic: No Symptoms Immunological/Allergic: No Symptoms Medications & Allergies Home Medications: Home Medication List Enalapril/Hydrochlorothiazide [Enalapril-Hctz 10-25 mg Tablet] 1 tab PO DAILY [History Confirmed 10/30/19] Metoprolol Succinate [Toprol Xl] 50 mg PO DAILY 10/30/19 [History Confirmed ] Nitrofurantoin Macro 100 mg [Macrobid 100MG Capsule] 100 mg PO BID [History Confirmed 10/30/19] Potassium Chloride [Klor-Con M10] 10 meq PO DAILY 10/30/19 [History Confirmed ] Allergies/Adverse Reactions: Allergies Allergy/AdvReac Type Severity Reaction Status Date / Time meperidine [From Demerol] Allergy Verified 10/24/19 07:25 [facility] [[facility] AdvReac Vomiting Verified 10/24/19 07:25 Penicillins AdvReac shakes Verified 10/24/19 07:25 - Past Medical History Past Medical History: Yes Neurological History: No Pertinent History ENT History: No Pertinent History Cardiac History: High Cholesterol, Hypertension Respiratory History: No Pertinent History Endocrine Medical History: No Pertinent History Musculoskelatal History: No Pertinent History GI Medical History: No Pertinent History History: No Pertinent History Pyscho-Social History: No Pertinent History Reproductive Disorders: No Pertinent History - Female History Hx Last Menstrual Period: post Are you now?: No - Past Surgical History Past Surgical History: Yes Neuro Surgical History: No Pertinent History Cardiac History: No Pertinent History Respiratory Surgery: No Pertinent History GI Surgical History: Appendectomy, Cholecystectomy Genitourinary Surgical Hx: No Pertinent History Musculskeletal Surgical Hx: Orthopedic Surgery Female Surgical History: Hysterectomy Other Surgical History: Lamenectomy, Rotator Cuff-Left, Back Surgery, cystocele - Social History Smoking Status: Never smoker Exposure to second hand smoke: No Alcohol: None Drug Use: none - Physical Exam Vital Signs: Vital Signs - 24 hr Temp Pulse Resp BP Pulse Ox 10/31/19 03:51 98.0 F 73 18 94/54 93 L 10/30/19 23:50 98.6 F 72 16 98/48 96 10/30/19 20:16 97.6 F 86 18 155/65 95 10/30/19 20:11 97.6 F 86 18 106/52 95 10/30/19 15:32 98.3 F 103 H 18 127/55 96 10/30/19 13:27 103 H 18 125/51 96 10/30/19 12:21 97 10/30/19 12:07 101 H 18 121/51 94 L 10/30/19 10:23 97.3 F 85 18 132/55 97 General Appearance: no apparent distress, alert Neurologic Exam: alert, oriented x 3, cooperative, normal mood/affect, nml cerebellar function, nml station & gait, sensation nml, No motor deficits Eye Exam: PERRL/EOMI, eyes nml inspection Ears, Nose, Throat Exam: normal ENT inspection, TMs normal, pharynx normal, moist mucous membranes Neck Exam: normal inspection, non-tender, supple, full range of motion Respiratory Exam: normal breath sounds, lungs clear, No respiratory distress Cardiovascular Exam: regular rate/rhythm, normal heart sounds, normal peripheral pulses Gastrointestinal/Abdomen Exam: soft, normal bowel sounds, No tenderness, No mass Back Exam: normal inspection, normal range of motion, No CVA tenderness, No vertebral tenderness Extremity Exam: normal inspection, normal range of motion, pelvis stable Skin Exam: normal color, warm, dry, No rash Lymphatic Exam: No adenopathy Results - Labs Lab/Micro Results: Lab Results-Last 24 Hours 10/30/19 10/30/19 10/30/19 Range/Units 10:45 10:52 10:52 WBC 13.5 H (4.0-10.5) K/mm3 RBC 4.02 L (4.1-5.4) M/mm3 Hgb 13.2 (12.0-16.0) gm/dl Hct 38.1 (35-47) % MCV 94.8 (78-100) fl MCH 32.8 H (26-32) pg MCHC 34.6 (32-36) g/dl RDW 13.0 (11.5-14.0) % Plt Count 205 (150-450) K/mm3 MPV 10.2 (7.5-11.0) fl Gran % 96.0 H (36.0-66.0) % Eos # (Auto) 0 (0-0.5) Absolute Lymphs (auto) 0.17 L (1.0-4.6) Absolute Monos (auto) 0.35 (0.0-1.3) Lymphocytes % 1.3 L (24.0-44.0) % Monocytes % 2.6 (0.0-12.0) % Eosinophils % 0.0 (0.00-5.0) % Basophils % 0.1 (0.0-0.4) % Absolute Granulocytes 12.92 H (1.4-6.9) Basophils # 0.02 (0-0.4) Sodium 133 L (137-145) mmol/L Potassium 3.5 (3.5-5.1) mmol/L Chloride 98 (98-107) mmol/L Carbon Dioxide 24 (22-30) mmol/L Anion Gap 13.9 (5-15) MEQ/L BUN 21 H (7-17) mg/dL Creatinine 0.62 (0.52-1.04) mg/dL Estimated GFR > 60.0 ML/MIN Glucose 141 H (74-106) mg/dL Lactic Acid (0.4-2.0) Calcium 9.0 (8.4-10.2) mg/dL Total Bilirubin 0.60 (0.2-1.3) mg/dL AST 79 H (14-36) U/L ALT 52 H (0-35) U/L Alkaline Phosphatase 70 (38-126) U/L Troponin I (0.000-0.034) ng/mL Serum Total Protein 6.7 (6.3-8.2) g/dL Albumin 3.9 (3.5-5.0) g/dL Amylase 112 H (30-110) U/L Lipase 54 (23-300) U/L Urine Color YELLOW (YELLOW) Urine Appearance CLEAR (CLEAR) Urine pH 5.0 (5-6) Ur Specific [place] 1.015 (1.005-1.025) Urine Protein NEGATIVE (Negative) Urine Ketones NEGATIVE (NEGATIVE) Urine Blood SMALL (0-5) Anibal/ul Urine Nitrite NEGATIVE (NEGATIVE) Urine Bilirubin NEGATIVE (NEGATIVE) Urine Urobilinogen NEGATIVE (0-1) mg/dL Ur Leukocyte Esterase NEGATIVE (NEGATIVE) Urine WBC (Auto) NONE (0-5) /HPF Urine RBC (Auto) NONE SEEN (0-2) /HPF U Epithel Cells (Auto) NONE (FEW) /HPF Urine Bacteria (Auto) NONE (NEGATIVE) /HPF Urine Mucus (Auto) SLIGHT (NEGATIVE) /HPF Urine Culture Reflexed ORDERED SEPARATELY (NO) Urine Glucose NEGATIVE (NEGATIVE) mg/dL Slides for Path Review 10/30/19 10/30/19 10/30/19 Range/Units 10:52 11:06 13:09 WBC (4.0-10.5) K/mm3 RBC (4.1-5.4) M/mm3 Hgb (12.0-16.0) gm/dl Hct (35-47) % MCV (78-100) fl MCH (26-32) pg MCHC (32-36) g/dl RDW (11.5-14.0) % Plt Count (150-450) K/mm3 MPV (7.5-11.0) fl Gran % (36.0-66.0) % Eos # (Auto) (0-0.5) Absolute Lymphs (auto) (1.0-4.6) Absolute Monos (auto) (0.0-1.3) Lymphocytes % (24.0-44.0) % Monocytes % (0.0-12.0) % Eosinophils % (0.00-5.0) % Basophils % (0.0-0.4) % Absolute Granulocytes (1.4-6.9) Basophils # (0-0.4) Sodium (137-145) mmol/L Potassium (3.5-5.1) mmol/L Chloride (98-107) mmol/L Carbon Dioxide (22-30) mmol/L Anion Gap (5-15) MEQ/L BUN (7-17) mg/dL Creatinine (0.52-1.04) mg/dL Estimated GFR ML/MIN Glucose (74-106) mg/dL Lactic Acid 3.6 H 2.4 H (0.4-2.0) Calcium (8.4-10.2) mg/dL Total Bilirubin (0.2-1.3) mg/dL AST (14-36) U/L ALT (0-35) U/L Alkaline Phosphatase (38-126) U/L Troponin I < 0.012 (0.000-0.034) ng/mL Serum Total Protein (6.3-8.2) g/dL Albumin (3.5-5.0) g/dL Amylase (30-110) U/L Lipase (23-300) U/L Urine Color (YELLOW) Urine Appearance (CLEAR) Urine pH (5-6) Ur Specific [place] (1.005-1.025) Urine Protein (Negative) Urine Ketones (NEGATIVE) Urine Blood (0-5) Anibal/ul Urine Nitrite (NEGATIVE) Urine Bilirubin (NEGATIVE) Urine Urobilinogen (0-1) mg/dL Ur Leukocyte Esterase (NEGATIVE) Urine WBC (Auto) (0-5) /HPF Urine RBC (Auto) (0-2) /HPF U Epithel Cells (Auto) (FEW) /HPF Urine Bacteria (Auto) (NEGATIVE) /HPF Urine Mucus (Auto) (NEGATIVE) /HPF Urine Culture Reflexed (NO) Urine Glucose (NEGATIVE) mg/dL Slides for Path Review 10/30/19 10/30/19 10/30/19 Range/Units 13:45 16:35 19:55 WBC (4.0-10.5) K/mm3 RBC (4.1-5.4) M/mm3 Hgb (12.0-16.0) gm/dl Hct (35-47) % MCV (78-100) fl MCH (26-32) pg MCHC (32-36) g/dl RDW (11.5-14.0) % Plt Count (150-450) K/mm3 MPV (7.5-11.0) fl Gran % (36.0-66.0) % Eos # (Auto) (0-0.5) Absolute Lymphs (auto) (1.0-4.6) Absolute Monos (auto) (0.0-1.3) Lymphocytes % (24.0-44.0) % Monocytes % (0.0-12.0) % Eosinophils % (0.00-5.0) % Basophils % (0.0-0.4) % Absolute Granulocytes (1.4-6.9) Basophils # (0-0.4) Sodium (137-145) mmol/L Potassium (3.5-5.1) mmol/L Chloride (98-107) mmol/L Carbon Dioxide (22-30) mmol/L Anion Gap (5-15) MEQ/L BUN (7-17) mg/dL Creatinine (0.52-1.04) mg/dL Estimated GFR ML/MIN Glucose (74-106) mg/dL Lactic Acid (0.4-2.0) Calcium (8.4-10.2) mg/dL Total Bilirubin (0.2-1.3) mg/dL AST (14-36) U/L ALT (0-35) U/L Alkaline Phosphatase (38-126) U/L Troponin I < 0.012 < 0.012 < 0.012 (0.000-0.034) ng/mL Serum Total Protein (6.3-8.2) g/dL Albumin (3.5-5.0) g/dL Amylase (30-110) U/L Lipase (23-300) U/L Urine Color (YELLOW) Urine Appearance (CLEAR) Urine pH (5-6) Ur Specific [place] (1.005-1.025) Urine Protein (Negative) Urine Ketones (NEGATIVE) Urine Blood (0-5) Anibal/ul Urine Nitrite (NEGATIVE) Urine Bilirubin (NEGATIVE) Urine Urobilinogen (0-1) mg/dL Ur Leukocyte Esterase (NEGATIVE) Urine WBC (Auto) (0-5) /HPF Urine RBC (Auto) (0-2) /HPF U Epithel Cells (Auto) (FEW) /HPF Urine Bacteria (Auto) (NEGATIVE) /HPF Urine Mucus (Auto) (NEGATIVE) /HPF Urine Culture Reflexed (NO) Urine Glucose (NEGATIVE) mg/dL Slides for Path Review 10/30/19 10/31/19 10/31/19 Range/Units 23:02 04:45 04:45 WBC 8.0 (4.0-10.5) K/mm3 RBC 3.86 L (4.1-5.4) M/mm3 Hgb 12.5 (12.0-16.0) gm/dl Hct 36.9 (35-47) % MCV 95.6 (78-100) fl MCH 32.4 H (26-32) pg MCHC 33.9 (32-36) g/dl RDW 13.4 (11.5-14.0) % Plt Count 201 (150-450) K/mm3 MPV 10.5 (7.5-11.0) fl Gran % (36.0-66.0) % Eos # (Auto) (0-0.5) Absolute Lymphs (auto) (1.0-4.6) Absolute Monos (auto) (0.0-1.3) Lymphocytes % (24.0-44.0) % Monocytes % (0.0-12.0) % Eosinophils % (0.00-5.0) % Basophils % (0.0-0.4) % Absolute Granulocytes (1.4-6.9) Basophils # (0-0.4) Sodium 133 L (137-145) mmol/L Potassium 3.4 L (3.5-5.1) mmol/L Chloride 99 (98-107) mmol/L Carbon Dioxide 26 (22-30) mmol/L Anion Gap 10.4 (5-15) MEQ/L BUN 14 (7-17) mg/dL Creatinine 0.64 (0.52-1.04) mg/dL Estimated GFR > 60.0 ML/MIN Glucose 110 H (74-106) mg/dL Lactic Acid (0.4-2.0) Calcium 8.5 (8.4-10.2) mg/dL Total Bilirubin 0.80 (0.2-1.3) mg/dL AST 73 H (14-36) U/L ALT 79 H (0-35) U/L Alkaline Phosphatase 57 (38-126) U/L Troponin I < 0.012 (0.000-0.034) ng/mL Serum Total Protein 5.9 L (6.3-8.2) g/dL Albumin 3.3 L (3.5-5.0) g/dL Amylase (30-110) U/L Lipase (23-300) U/L Urine Color (YELLOW) Urine Appearance (CLEAR) Urine pH (5-6) Ur Specific [place] (1.005-1.025) Urine Protein (Negative) Urine Ketones (NEGATIVE) Urine Blood (0-5) Anibal/ul Urine Nitrite (NEGATIVE) Urine Bilirubin (NEGATIVE) Urine Urobilinogen (0-1) mg/dL Ur Leukocyte Esterase (NEGATIVE) Urine WBC (Auto) (0-5) /HPF Urine RBC (Auto) (0-2) /HPF U Epithel Cells (Auto) (FEW) /HPF Urine Bacteria (Auto) (NEGATIVE) /HPF Urine Mucus (Auto) (NEGATIVE) /HPF Urine Culture Reflexed (NO) Urine Glucose (NEGATIVE) mg/dL Slides for Path Review Assessment/Plan (1) Dehydration Current Visit: Yes Status: Acute Code(s): E86.0 - DEHYDRATION (2) Nausea Current Visit: Yes Status: Acute Code(s): R11.0 - NAUSEA (3) Weakness Current Visit: Yes Status: Acute Code(s): R53.1 - WEAKNESS (4) Acute cystitis without hematuria Current Visit: No Status: Acute Code(s): N30.00 - ACUTE CYSTITIS WITHOUT HEMATURIA (5) Hypertension Current Visit: No Status: Acute Code(s): I10 - ESSENTIAL (PRIMARY) HYPERTENSION
[2019-10-31] MEDS: TYLENOL 325 MG PO PRN ×3 (08:19→20:00)
[2019-10-31] MEDS: Macrobid 100MG Capsule PO SCH ×2 (09:52→22:00)
[2019-10-31] MEDS: hydroDIURIL 25 MG PO SCH (09:53)
[2019-10-31] MEDS: Klor Con 10 MEQ PO SCH (09:54)
[2019-10-31] MEDS: Vasotec 10 MG PO SCH (09:54)
[2019-10-31] MEDS ORDERED: ENALAPRIL PO SCH (10:00)
[2019-10-31] MEDS ORDERED: HYDROCHLOROTHIAZIDE PO SCH (10:00)
[2019-10-31] MEDS ORDERED: POTASSIUM CHLORIDE 10 MEQ PO SCH (10:00)
[2019-10-31] MEDS ORDERED: [UNRECOGNIZED DRUG - OTHER] PO SCH (10:00)
[2019-10-31] MEDS: Toprol Xl 50 MG PO SCH (11:10)
[2019-10-31] MEDS: Colace 100 MG PO PRN (11:10)
[2019-10-31 15:07] LABS: Absolute Neutrophil Ct (ANC) 8.38 (1.4-6.9); BASOPHIL % 0.2 % (0.0-0.4); Basophil (Absolute #) 0.02 (0-0.4); Eosinophil % 0.7 % (0.00-5.0); Eosinophil (Absolute #) 0.06 (0-0.5); Hematocrit 38.3 % (35-47); Hemoglobin 13.1 gm/dl (12.0-16.0); Lymphocyte (Absolute #) 0.39 (1.0-4.6); Lymphocytes % 4.2 % (24.0-44.0); Mean Cell Volume 95.3 fl (78-100); Mean Corpuscular Hemoglobin 32.6 pg (26-32); Mean Corpuscular Hgb Concent. 34.2 g/dl (32-36); Mean Platelet Volume 10.1 fl (7.5-11.0); Monocyte (Absolute #) 0.37 (0.0-1.3); Neutrophil % 90.9 % (36.0-66.0); Platelet Count 203 K/mm3 (150-450); Red Blood Count 4.02 M/mm3 (4.1-5.4); Red Cell Distribution Width 13.3 % (11.5-14.0); White Blood Count 9.2 K/mm3 (4.0-10.5)
[2019-10-31 15:30] LABS: ALBUMIN 3.5 g/dL (3.5-5.0); ALKALINE PHOSPHATASE 107 U/L (38-126); ANION GAP 10.6 MEQ/L (5-15); BLOOD UREA NITROGEN 13 mg/dL (7-17); CHLORIDE 96 mmol/L (98-107); Calcium 8.4 mg/dL (8.4-10.2); Carbon Dioxide 26 mmol/L (22-30); Creatinine 1 0.69 mg/dL (0.52-1.04); Glucose 121 mg/dL (74-106); Potassium 3.8 mmol/L (3.5-5.1); SGOT/AST 451 U/L (14-36); SGPT/ALT 300 U/L (0-35); SODIUM 129 mmol/L (137-145); Total Protein 6.4 g/dL (6.3-8.2)
[2019-10-31 15:43] LABS: INFLUENZA A NEGATIVE (NEGATIVE); INFLUENZA B NEGATIVE (NEGATIVE); RESPIRATORY SYNCTIAL VIRUS NEGATIVE (Negative)
[2019-10-31 16:14] LABS: AMYLASE 51 U/L (30-110); LIPASE 45 U/L (23-300)
[2019-10-31 16:17] LABS: Slide Review 1 YES
[2019-10-31] MEDS: Sodium Chloride 0.9% 1000 ML 1,000 ML IV SCH (17:19)
--- NOTE | 2019-10-31 18:52 | XRAY ---
Indication: Fever and shaking 3 days. Multiple contiguous axial images obtained through the chest without contrast as ordered. Comparison: None Lungs are inflated with minimal bilateral dependent atelectasis. Small left upper lobe peripheral calcified granuloma. No suspicious pulmonary mass, nodule, infiltrate, or effusion. Heart is not enlarged. Aorta is normal in course and caliber with minimal calcifications. Small left suprahilar calcified node. No pathologic mediastinal lymphadenopathy. Small hiatal hernia. Bony thorax intact with osteopenia and minimal degenerative changes throughout the spine. CT abdomen/pelvis reported separately. Impression: 1. Atelectasis, hiatal hernia, and evidence for old granulomatous disease. 2. Remaining CT chest without contrast exam is negative. Comment: Preliminary interpretation was made by [facility]. No critical discrepancy.
--- NOTE | 2019-10-31 18:58 | XRAY ---
Indication: Abdomen pain. Fever and shaking 3 days. Multiple contiguous axial images obtained through the abdomen and pelvis using 80 cc SUV 370 contrast only. Comparison: Noncontrast exam October 24, 2019. CT chest reported separately. Noncontrasted stomach and bowel loops appear nonobstructed. Stable sigmoid diverticulosis without diverticulitis. Again previous reported appendectomy, cholecystectomy, and hysterectomy. No free fluid/air. [place] balloon catheter in situ. Normal visceral enhancement and renal excretion. Stable hepatic cyst, pneumobilia and exophytic right renal cyst. Incidental small bilateral parapelvic renal cysts not well seen on previous noncontrasted exam. Remaining liver, pancreas, spleen, adrenal glands, kidneys, ureters, and bladder appear unremarkable. Stable mild aortoiliac calcifications. No AAA or pathological retroperitoneal lymphadenopathy. Impression: 1. Stable pneumobilia, hepatic cyst, bilateral renal cysts, and sigmoid diverticulosis. 2. [place] catheter in situ. 3. Remaining CT abdomen/pelvis with contrast exam is negative. Comment: Preliminary interpretation was made by [facility]. No critical discrepancy.
[2019-11-01] MEDS: TYLENOL 325 MG PO PRN ×3 (02:23→18:02)
--- NOTE | 2019-11-01 08:49 | PCM.NOTE ---
Date and Time: 11/01/19 0847 Subjective Assessment: doing better - Review of Systems Constitutional: No Fever, No Chills Eyes: No Symptoms Ears, Nose, & Throat: No Symptoms Respiratory: No Cough, No Short Of Breath Cardiac: No Chest Pain, No Edema, No Syncope Abdominal/Gastrointestinal: No Abdominal Pain, No Nausea, No Vomiting, No Diarrhea Genitourinary Symptoms: No Dysuria Musculoskeletal: No Back Pain, No Neck Pain Skin: No Rash Neurological: No Dizziness, No Focal Weakness, No Sensory Changes Psychological: No Symptoms Endocrine: No Symptoms Hematologic/Lymphatic: No Symptoms Immunological/Allergic: No Symptoms Objective Exam General Appearance: no apparent distress, alert Neurologic Exam: alert, oriented x 3, cooperative, normal mood/affect, nml cerebellar function, sensation nml, No motor deficits Skin Exam: normal color, warm, dry Eye Exam: PERRL, EOMI, eyes nml inspection Ears, Nose, Throat Exam: normal ENT inspection, pharynx normal, moist mucous membranes Neck Exam: normal inspection, non-tender, supple, full range of motion Respiratory Exam: normal breath sounds, lungs clear, No respiratory distress Cardiovascular Exam: regular rate/rhythm, normal heart sounds Gastrointestinal/Abdomen Exam: soft, No tenderness, No mass Extremity Exam: normal inspection, normal range of motion Back Exam: normal inspection, normal range of motion, No CVA tenderness, No vertebral tenderness Pelvic Exam: deferred Rectal Exam: deferred OBJECTIVE DATA Vital Signs: Vital Signs - 24 hr Temp Pulse Resp BP Pulse Ox 11/01/19 08:00 98.0 F 84 20 110/54 94 L 11/01/19 03:33 99.3 F 95 H 18 115/55 93 L 10/31/19 23:58 97.6 F 76 18 94/52 96 10/31/19 20:22 99.8 F 105 H 20 117/58 95 10/31/19 18:33 99.0 F 88 10/31/19 16:00 98.8 F 89 22 102/52 93 L 10/31/19 14:00 102.1 F 90 18 116/60 93 L 10/31/19 11:15 70 112/56 Pain Assessment - Last Documented Pain Intensity 0 Pain Scale Used 0-10 Pain Scale Intake and Output: Intake & Output 10/29/19 10/30/19 10/31/19 11/01/19 11:59 11:59 11:59 11:59 Intake Total 0736 1349 Output Total 7956 4346 Balance -334 -351 Weight 68.492 kg 72.7 kg 71.1 kg Lab Results: Lab Results-Last 24 Hours 10/31/19 10/31/19 10/31/19 Range/Units 15:00 15:00 15:00 WBC 9.2 (4.0-10.5) K/mm3 RBC 4.02 L (4.1-5.4) M/mm3 Hgb 13.1 (12.0-16.0) gm/dl Hct 38.3 (35-47) % MCV 95.3 (78-100) fl MCH 32.6 H (26-32) pg MCHC 34.2 (32-36) g/dl RDW 13.3 (11.5-14.0) % Plt Count 203 (150-450) K/mm3 MPV 10.1 (7.5-11.0) fl Gran % 90.9 H (36.0-66.0) % Eos # (Auto) 0.06 (0-0.5) Absolute Lymphs (auto) 0.39 L (1.0-4.6) Absolute Monos (auto) 0.37 (0.0-1.3) Lymphocytes % 4.2 L (24.0-44.0) % Monocytes % 4.0 (0.0-12.0) % Eosinophils % 0.7 (0.00-5.0) % Basophils % 0.2 (0.0-0.4) % Absolute Granulocytes 8.38 H (1.4-6.9) Basophils # 0.02 (0-0.4) Sodium 129 L (137-145) mmol/L Potassium 3.8 (3.5-5.1) mmol/L Chloride 96 L (98-107) mmol/L Carbon Dioxide 26 (22-30) mmol/L Anion Gap 10.6 (5-15) MEQ/L BUN 13 (7-17) mg/dL Creatinine 0.69 (0.52-1.04) mg/dL Estimated GFR > 60.0 ML/MIN Glucose 121 H (74-106) mg/dL Calcium 8.4 (8.4-10.2) mg/dL Total Bilirubin 0.90 (0.2-1.3) mg/dL AST 451 H (14-36) U/L ALT 300 H (0-35) U/L Alkaline Phosphatase 107 (38-126) U/L Serum Total Protein 6.4 (6.3-8.2) g/dL Albumin 3.5 (3.5-5.0) g/dL Amylase (30-110) U/L Lipase (23-300) U/L Influenza Type A Ag NEGATIVE (NEGATIVE) Influenza Type B Ag NEGATIVE (NEGATIVE) RSV (PCR) NEGATIVE (Negative) Slides for Path Review YES 10/31/19 Range/Units 15:29 WBC (4.0-10.5) K/mm3 RBC (4.1-5.4) M/mm3 Hgb (12.0-16.0) gm/dl Hct (35-47) % MCV (78-100) fl MCH (26-32) pg MCHC (32-36) g/dl RDW (11.5-14.0) % Plt Count (150-450) K/mm3 MPV (7.5-11.0) fl Gran % (36.0-66.0) % Eos # (Auto) (0-0.5) Absolute Lymphs (auto) (1.0-4.6) Absolute Monos (auto) (0.0-1.3) Lymphocytes % (24.0-44.0) % Monocytes % (0.0-12.0) % Eosinophils % (0.00-5.0) % Basophils % (0.0-0.4) % Absolute Granulocytes (1.4-6.9) Basophils # (0-0.4) Sodium (137-145) mmol/L Potassium (3.5-5.1) mmol/L Chloride (98-107) mmol/L Carbon Dioxide (22-30) mmol/L Anion Gap (5-15) MEQ/L BUN (7-17) mg/dL Creatinine (0.52-1.04) mg/dL Estimated GFR ML/MIN Glucose (74-106) mg/dL Calcium (8.4-10.2) mg/dL Total Bilirubin (0.2-1.3) mg/dL AST (14-36) U/L ALT (0-35) U/L Alkaline Phosphatase (38-126) U/L Serum Total Protein (6.3-8.2) g/dL Albumin (3.5-5.0) g/dL Amylase 51 (30-110) U/L Lipase 45 (23-300) U/L Influenza Type A Ag (NEGATIVE) Influenza Type B Ag (NEGATIVE) RSV (PCR) (Negative) Slides for Path Review Radiology Exams: Radiology Procedures Category Date Time Status ABDOMEN AND PELVIS W CONTRAST [CT] Stat Exams 10/31/19 16:06 Completed CHEST WITHOUT CONTRAST [CT] Stat Exams 10/31/19 14:41 Completed Assessment/Plan (1) Elevated liver enzymes Current Visit: Yes Status: Acute Assessment & Plan: will repeat liver enzymes Code(s): R74.8 - ABNORMAL LEVELS OF OTHER SERUM ENZYMES (2) Dehydration Current Visit: Yes Status: Resolved Code(s): E86.0 - DEHYDRATION (3) Nausea Current Visit: Yes Status: Resolved Code(s): R11.0 - NAUSEA (4) Weakness Current Visit: Yes Status: Resolved Code(s): R53.1 - WEAKNESS (5) Acute cystitis without hematuria Current Visit: No Status: Acute Code(s): N30.00 - ACUTE CYSTITIS WITHOUT HEMATURIA (6) Hypertension Current Visit: Yes Status: Chronic Qualifiers: Hypertension type: essential hypertension Qualified Code(s): I10 - Essential (primary) hypertension Code(s): I10 - ESSENTIAL (PRIMARY) HYPERTENSION
[2019-11-01 09:35] LABS: ALBUMIN 3.5 g/dL (3.5-5.0); ALKALINE PHOSPHATASE 172 U/L (38-126); ANION GAP 11.2 MEQ/L (5-15); BLOOD UREA NITROGEN 10 mg/dL (7-17); CHLORIDE 96 mmol/L (98-107); Calcium 8.5 mg/dL (8.4-10.2); Carbon Dioxide 29 mmol/L (22-30); Creatinine 1 0.65 mg/dL (0.52-1.04); Glucose 176 mg/dL (74-106); Potassium 3.7 mmol/L (3.5-5.1); SGOT/AST 342 U/L (14-36); SGPT/ALT 398 U/L (0-35); SODIUM 132 mmol/L (137-145); Total Protein 6.5 g/dL (6.3-8.2)
[2019-11-01] MEDS: Toprol Xl 50 MG PO SCH (09:46)
[2019-11-01] MEDS: Vasotec 10 MG PO SCH (09:46)
[2019-11-01] MEDS: Macrobid 100MG Capsule PO SCH ×2 (09:46→22:00)
[2019-11-01] MEDS: Klor Con 10 MEQ PO SCH (09:47)
[2019-11-01] MEDS: hydroDIURIL 25 MG PO SCH (09:47)
[2019-11-01] MEDS: Sodium Chloride 0.9% 1000 ML 1,000 ML IV SCH (12:49)
[2019-11-01] MEDS: ZOVIRAX IV SCH ×2 (14:53→22:01)
[2019-11-01] MEDS: D5W MINI IV SCH ×2 (14:53→22:01)
[2019-11-01] MEDS ORDERED: Zovirax INJ IV SCH (22:00)
[2019-11-02 05:06] LABS: Absolute Neutrophil Ct (ANC) 7.91 (1.4-6.9); BASOPHIL % 0.1 % (0.0-0.4); Basophil (Absolute #) 0.01 (0-0.4); Eosinophil % 4.1 % (0.00-5.0); Eosinophil (Absolute #) 0.39 (0-0.5); Hematocrit 37.8 % (35-47); Hemoglobin 13.1 gm/dl (12.0-16.0); Lymphocyte (Absolute #) 0.76 (1.0-4.6); Mean Corpuscular Hemoglobin 32.6 pg (26-32); Mean Corpuscular Hgb Concent. 34.7 g/dl (32-36); Mean Platelet Volume 10.4 fl (7.5-11.0); Monocytes % 4.2 % (0.0-12.0); Neutrophil % 83.6 % (36.0-66.0); Platelet Count 197 K/mm3 (150-450); Red Blood Count 4.02 M/mm3 (4.1-5.4); Red Cell Distribution Width 13.4 % (11.5-14.0); White Blood Count 9.5 K/mm3 (4.0-10.5)
[2019-11-02 05:21] LABS: ALBUMIN 3.2 g/dL (3.5-5.0); ALKALINE PHOSPHATASE 209 U/L (38-126); ANION GAP 10.2 MEQ/L (5-15); BLOOD UREA NITROGEN 12 mg/dL (7-17); CHLORIDE 100 mmol/L (98-107); Calcium 8.4 mg/dL (8.4-10.2); Carbon Dioxide 28 mmol/L (22-30); Creatinine 1 0.59 mg/dL (0.52-1.04); Glucose 112 mg/dL (74-106); SGOT/AST 127 U/L (14-36); SGPT/ALT 257 U/L (0-35); SODIUM 135 mmol/L (137-145)
[2019-11-02 05:33] LABS: Potassium 2.9 mmol/L (3.5-5.1)
[2019-11-02] MEDS: POTASSIUM CHLORIDE 20 mEq IN WATER 100ML 20 MEQ/100 ML BAG IV SCH ×2 (06:07→08:15)
[2019-11-02] MEDS: ZOVIRAX IV SCH ×2 (09:25→21:42)
[2019-11-02] MEDS: hydroDIURIL 25 MG PO SCH (09:25)
[2019-11-02] MEDS: D5W MINI IV SCH ×2 (09:25→21:42)
[2019-11-02] MEDS: Toprol Xl 50 MG PO SCH (09:26)
[2019-11-02] MEDS: Vasotec 10 MG PO SCH (09:26)
[2019-11-02] MEDS: Klor Con 10 MEQ PO SCH (09:26)
--- NOTE | 2019-11-02 11:45 | PCM.NOTE ---
Date and Time: 11/02/19 1142 Subjective Assessment: doing ok - Review of Systems Constitutional: No Fever, No Chills Eyes: No Symptoms Ears, Nose, & Throat: No Symptoms Respiratory: No Cough, No Short Of Breath Cardiac: No Chest Pain, No Edema, No Syncope Abdominal/Gastrointestinal: No Abdominal Pain, No Nausea, No Vomiting, No Diarrhea Genitourinary Symptoms: No Dysuria Musculoskeletal: No Back Pain, No Neck Pain Skin: No Rash Neurological: No Dizziness, No Focal Weakness, No Sensory Changes Psychological: No Symptoms Endocrine: No Symptoms Hematologic/Lymphatic: No Symptoms Immunological/Allergic: No Symptoms Objective Exam General Appearance: no apparent distress, alert Neurologic Exam: alert, oriented x 3, cooperative, normal mood/affect, nml cerebellar function, sensation nml, No motor deficits Skin Exam: normal color, warm, dry Eye Exam: PERRL, EOMI, eyes nml inspection Ears, Nose, Throat Exam: normal ENT inspection, pharynx normal, moist mucous membranes Neck Exam: normal inspection, non-tender, supple, full range of motion Respiratory Exam: normal breath sounds, lungs clear, No respiratory distress Cardiovascular Exam: regular rate/rhythm, normal heart sounds Gastrointestinal/Abdomen Exam: soft, No tenderness, No mass Extremity Exam: normal inspection, normal range of motion Back Exam: normal inspection, normal range of motion, No CVA tenderness, No vertebral tenderness Pelvic Exam: deferred Rectal Exam: deferred OBJECTIVE DATA Vital Signs: Vital Signs - 24 hr Temp Pulse Resp BP Pulse Ox 11/02/19 08:00 99.3 F 86 11 L 132/58 94 L 11/02/19 04:04 98.7 F 79 18 121/60 96 11/01/19 23:20 98.2 F 82 16 101/52 95 11/01/19 20:00 100.5 F 97 H 18 120/62 96 11/01/19 16:00 97.9 F 84 20 104/53 93 L 11/01/19 12:00 97.4 F 70 18 109/53 97 Pain Assessment - Last Documented Pain Intensity 2 Pain Scale Used [facility] Intake and Output: Intake & Output 10/30/19 10/31/19 11/01/19 11/02/19 11:59 11:59 11:59 11:59 Intake Total 1366 1349 1792 Output Total 1700 1700 2950 Balance -334 -140 -3450 Weight 68.492 kg 72.7 kg 71.1 kg 74.5 kg Lab Results: Lab Results-Last 24 Hours 11/02/19 11/02/19 Range/Units 05:08 05:08 WBC 9.5 (4.0-10.5) K/mm3 RBC 4.02 L (4.1-5.4) M/mm3 Hgb 13.1 (12.0-16.0) gm/dl Hct 37.8 (35-47) % MCV 94.0 (78-100) fl MCH 32.6 H (26-32) pg MCHC 34.7 (32-36) g/dl RDW 13.4 (11.5-14.0) % Plt Count 197 (150-450) K/mm3 MPV 10.4 (7.5-11.0) fl Gran % 83.6 H (36.0-66.0) % Eos # (Auto) 0.39 (0-0.5) Absolute Lymphs (auto) 0.76 L (1.0-4.6) Absolute Monos (auto) 0.40 (0.0-1.3) Lymphocytes % 8.0 L (24.0-44.0) % Monocytes % 4.2 (0.0-12.0) % Eosinophils % 4.1 (0.00-5.0) % Basophils % 0.1 (0.0-0.4) % Absolute Granulocytes 7.91 H (1.4-6.9) Basophils # 0.01 (0-0.4) Sodium 135 L (137-145) mmol/L Potassium 2.9 L* D (3.5-5.1) mmol/L Chloride 100 (98-107) mmol/L Carbon Dioxide 28 (22-30) mmol/L Anion Gap 10.2 (5-15) MEQ/L BUN 12 (7-17) mg/dL Creatinine 0.59 (0.52-1.04) mg/dL Estimated GFR > 60.0 ML/MIN Glucose 112 H (74-106) mg/dL Calcium 8.4 (8.4-10.2) mg/dL Total Bilirubin 1.10 (0.2-1.3) mg/dL AST 127 H (14-36) U/L ALT 257 H (0-35) U/L Alkaline Phosphatase 209 H (38-126) U/L Serum Total Protein 6.0 L (6.3-8.2) g/dL Albumin 3.2 L (3.5-5.0) g/dL Radiology Exams: Radiology Procedures Category Date Time Status ABDOMEN AND PELVIS W CONTRAST [CT] Stat Exams 10/31/19 16:06 Completed CHEST WITHOUT CONTRAST [CT] Stat Exams 10/31/19 14:41 Completed Assessment/Plan (1) Hepatitis Current Visit: Yes Status: Acute (2) Elevated liver enzymes Current Visit: Yes Status: Acute Code(s): R74.8 - ABNORMAL LEVELS OF OTHER SERUM ENZYMES (3) Dehydration Current Visit: Yes Status: Resolved Code(s): E86.0 - DEHYDRATION (4) Nausea Current Visit: Yes Status: Resolved Code(s): R11.0 - NAUSEA (5) Weakness Current Visit: Yes Status: Resolved Code(s): R53.1 - WEAKNESS (6) Acute cystitis without hematuria Current Visit: No Status: Acute Code(s): N30.00 - ACUTE CYSTITIS WITHOUT HEMATURIA (7) Hypertension Current Visit: Yes Status: Chronic Qualifiers: Hypertension type: essential hypertension Qualified Code(s): I10 - Essential (primary) hypertension Code(s): I10 - ESSENTIAL (PRIMARY) HYPERTENSION (8) Hypokalemia Current Visit: Yes Status: Acute Assessment & Plan: replacement Code(s): E87.6 - HYPOKALEMIA
[2019-11-02] MEDS: Sodium Chloride 0.9% 1000 ML 1,000 ML IV SCH (21:42)
[2019-11-02] MEDS: Colace 100 MG PO PRN (21:43)
[2019-11-03] MEDS: TYLENOL 325 MG PO PRN (04:34)
[2019-11-03 05:25] LABS: ANION GAP 11.1 MEQ/L (5-15); BLOOD UREA NITROGEN 11 mg/dL (7-17); CHLORIDE 99 mmol/L (98-107); Calcium 8.3 mg/dL (8.4-10.2); Carbon Dioxide 28 mmol/L (22-30); Creatinine 1 0.53 mg/dL (0.52-1.04); Glucose 109 mg/dL (74-106); MAGNESIUM 1.7 mg/dL (1.6-2.3); Potassium 3.5 mmol/L (3.5-5.1); SODIUM 135 mmol/L (137-145)
[2019-11-03 06:23] LABS: HEPATITIS A IGM Non Reactive (Non Reactive); HEPATITIS B VIRUS CORE TOT AB Non Reactive (Non Reactive); HEPATITIS C VIRUS ANTIBODY Non Reactive (Non Reactive); Hepatitis B Surface Ab.Quant. <3.50 mIU/mL (0.00-8.49); Hepatitis B Surface Antigen Non Reactive (Non Reactive)
[2019-11-03 07:51] VITALS: BP 123/55; PULSE 78; O2SAT 94
[2019-11-03 08:56] LABS: ALBUMIN 2.9 g/dL (3.5-5.0); ALKALINE PHOSPHATASE 194 U/L (38-126); Direct Bilirubin 0.3 mg/dL (0.0-0.4); SGOT/AST 53 U/L (14-36); SGPT/ALT 160 U/L (0-35); Total Protein 5.4 g/dL (6.3-8.2)
[2019-11-03] MEDS: ZOVIRAX IV SCH (09:16)
[2019-11-03] MEDS: Klor Con 10 MEQ PO SCH (09:16)
[2019-11-03] MEDS: hydroDIURIL 25 MG PO SCH (09:16)
[2019-11-03] MEDS: Toprol Xl 50 MG PO SCH (09:16)
[2019-11-03] MEDS: Vasotec 10 MG PO SCH (09:16)
[2019-11-03] MEDS: D5W MINI IV SCH (09:16)
== END 2019-11-03 13:00 | DRG 641 ==
LOC: ED 10:22 → MED SURG 14:40 → OBSVTOIN 10-31 15:06 → MED SURG 10-31 15:06 → OBSVTOIN 11-01 08:47 → INTOOBSV 11-01 08:47
PROVIDERS: ADMIT General Practice; ATTEND General Practice
DX: E86.0 Dehydration (principal); N30.00 Acute cystitis without hematuria; R11.0 Nausea; R53.1 Weakness; I10 Essential (primary) hypertension; R74.8 Abnormal levels of other serum enzymes; K75.9 Inflammatory liver disease, unspecified; E87.6 Hypokalemia; R42 Dizziness and giddiness; E78.00 Pure hypercholesterolemia, unspecified; Z79.899 Other long term (current) drug therapy
CPT/HCPCS: 36415; 71250; 74177; 80048; 80053; 80074; 80076; 81001; 82150; 83605; 83690; 83735; 84132; 84484; 85025; 85027; 87040; 87086; 87631; 93005; 96374; 99285; G0378; J0133; J2405; J3480; A9270-GY

== ENCOUNTER 2019-12-23 00:08 | Emergency (ER) | payer MEDICARE, OTHER ==
[2019-12-23] MEDS ORDERED: DUONEB 0.5-3 MG/3 ml Neb IH ONE ×2 (00:23→00:27)
[2019-12-23] MEDS ORDERED: solu-MEDROL 125 MG IV ONE (00:27)
[2019-12-23] MEDS ORDERED: BABY ASPIRIN 81 MG CHEW PO ONE (00:29)
--- NOTE | 2019-12-23 00:29 | ERPHSYRPT ---
- History of Present Illness Time Seen by Provider: 12/23/19 00:20 Historian: patient, family Physician History: 84 years old female with history of coronary artery disease recent stenting at [facility] with reopening less than 2 weeks ago presented in the ER with chief complaint of sudden onset substernal chest pain and shortness of breath almost an hour prior to arrival. Patient report dull aching pressure sensation in the center of the chest and epigastric area without any significant aggravating or relieving factors associated with wheezing and cough productive of clear to yellow sputum. Patient has recently diagnosed new onset CHF and has been taking Lasix as recommended. Denies any swelling of lower extremities. No fever or chills reported. Timing/Duration: hour(s) (1), sudden, worse Activities at Onset: rest Quality: dullness, fullness, pressure, sharpness Location: substernal, epigastric Chest Pain Radiation: no radiation Severity of Pain-Max: moderate Severity of Pain-Current: moderate Modifying Factors: Improves With: nothing Associated Symptoms: nausea, abdominal pain Prior Chest Pain/Cardiac Workup: cardiac cath, recently seen/treated, recent hospitalization Nitro Today/Relief: no nitro taken today Aspirin Treatment Today: unknown Allergies/Adverse Reactions: meperidine [From Demerol] Allergy (Verified 10/24/19 07:25) cefaclor [From Ceclor] Adverse Reaction (Verified 10/24/19 07:25) Vomiting Penicillins Adverse Reaction (Verified 10/24/19 07:25) shakes Home Medications: Enalapril/Hydrochlorothiazide [Enalapril-Hctz 10-25 mg Tablet] 1 tab PO DAILY [History] Metoprolol Succinate [Toprol Xl] 50 mg PO DAILY 10/30/19 [History] Nitrofurantoin Macro 100 mg [Macrobid 100MG Capsule] 100 mg PO BID [History] Potassium Chloride [Klor-Con M10] 10 meq PO DAILY 10/30/19 [History] Hx Tetanus, Diphtheria Vaccination/Date Given: Yes Hx Influenza Vaccination/Date Given: Yes Hx Pneumococcal Vaccination/Date Given: No - Review of Systems Constitutional: No Symptoms Eyes: No Symptoms Ears, Nose, & Throat: No Symptoms Respiratory: Cough, Dyspnea, Wheezing Cardiac: Chest Pain, Palpitations Abdominal/Gastrointestinal: Abdominal Pain, Nausea Genitourinary Symptoms: No Symptoms Musculoskeletal: No Symptoms Skin: No Symptoms Neurological: No Symptoms Psychological: No Symptoms Endocrine: No Symptoms Hematologic/Lymphatic: No Symptoms Immunological/Allergic: No Symptoms - Past Medical History Pertinent Past Medical History: Yes Neurological History: No Pertinent History ENT History: No Pertinent History Cardiac History: High Cholesterol, Hypertension Respiratory History: No Pertinent History Endocrine Medical History: No Pertinent History Musculoskeletal History: No Pertinent History GI Medical History: No Pertinent History History: No Pertinent History Psycho-Social History: No Pertinent History Female Reproductive Disorders: No Pertinent History - Past Surgical History Past Surgical History: Yes Neuro Surgical History: No Pertinent History Cardiac: No Pertinent History Respiratory: No Pertinent History Gastrointestinal: Appendectomy, Cholecystectomy Genitourinary: No Pertinent History Musculoskeletal: Orthopedic Surgery Female Surgical History: Hysterectomy Other Surgical History: Lamenectomy, Rotator Cuff-Left, Back Surgery, cystocele - Social History Smoking Status: Never smoker Exposure to second hand smoke: No Drug Use: none Patient Lives Alone: Yes - Nursing Vital Signs Nursing Vital Signs: Initial Vital Signs Temperature 97.0 F 12/23/19 00:10 Pulse Rate 100 H 12/23/19 00:10 Respiratory Rate 36 H 12/23/19 00:10 Blood Pressure 107/95 12/23/19 00:10 O2 Sat by Pulse Oximetry 90 L 12/23/19 00:10 Pain Scale Pain Intensity 6 - Physical Exam General Appearance: moderate distress Eye Exam: PERRL/EOMI, eyes nml inspection Ears, Nose, Throat Exam: normal ENT inspection, TMs normal, pharynx normal Neck Exam: normal inspection, non-tender, supple, full range of motion Respiratory Exam: diminished breath sounds, accessory muscle use, wheezing, No chest tenderness Cardiovascular Exam: regular rate/rhythm, normal heart sounds Gastrointestinal/Abdomen Exam: soft, tenderness (Epigastric) Back Exam: normal inspection Extremity Exam: normal inspection, normal range of motion Neurologic Exam: alert, oriented x 3, cooperative Skin Exam: normal color, warm, dry SpO2 Interpretation: O2 applied O2 Delivery: Nasal Cannula - Course Nursing assessment & vital signs reviewed: Yes EKG Interpreted by Me: RATE (99), Sinus Rhythm, NORMAL AXIS, NORMAL INTERVALS, Q -wave (Anteroseptal) Ordered Tests: Active Orders 24 hr Category Date Time Status EKG-ER Only STAT Care 12/23/19 00:24 Active Arroyo [Catheter-[place] Arroyo] STAT Care 12/23/19 01:39 Active IV Insertion STAT Care 12/23/19 00:24 Active Isolation, Initiate & Maintain Q12H Care 12/23/19 00:56 Active NPO (ED) STAT Care 12/23/19 00:24 Active ABDOMEN AND PELVIS W CONTRAST [CT] Stat Exams 12/23/19 00:25 Taken CHEST 1 VIEW (PORTABLE) Stat Exams 12/23/19 00:25 Taken CHEST WITH CONTRAST [CT] Stat Exams 12/23/19 00:27 Taken ABG [ARTERIAL BLOOD GASES] Stat Lab 12/23/19 03:09 Completed AMYLASE Stat Lab 12/23/19 00:56 Completed BLOOD CULTURE Stat Lab 12/23/19 00:56 Ordered BNP [NT PRO BNP] Stat Lab 12/23/19 00:40 Completed CBC W DIFF Stat Lab 12/23/19 00:56 Completed CMP Stat Lab 12/23/19 00:56 Completed LIPASE Stat Lab 12/23/19 00:56 Completed Lactic Acid Stat Lab 12/23/19 01:47 Completed Manual Differential NC Stat Lab 12/23/19 00:56 Completed PROTIME WITH INR Stat Lab 12/23/19 00:56 Completed TROPONIN Q3H Lab 12/23/19 00:56 Completed TROPONIN Q3H Lab 12/23/19 03:11 Completed Respiratory Therapy Assessment DAILY RT 12/23/19 00:30 Completed Medication Summary Discontinued Medications Generic Name Dose Route Start Last Admin Trade Name Freq PRN Reason Stop Dose Admin Albuterol/Ipratropium Confirm 12/23/19 00:23 Duoneb 0.5-3 Mg/3 Ml Neb Administered 12/23/19 00:24 Dose 3 ml IH .STK-MED ONE Albuterol/Ipratropium 3 ml 12/23/19 00:27 12/23/19 00:30 Duoneb 0.5-3 Mg/3 Ml Neb IH 12/23/19 00:28 3 ml STAT ONE Administration Aspirin 324 mg 12/23/19 00:29 12/23/19 01:27 Baby Aspirin 81 Mg Chew PO 12/23/19 00:30 324 mg STAT ONE Administration Furosemide Confirm 12/23/19 01:17 Lasix 40 Mg/4 Ml Administered 12/23/19 01:18 Dose 40 mg .ROUTE .STK-MED ONE Furosemide 40 mg 12/23/19 01:20 12/23/19 01:28 Lasix 40 Mg/4 Ml IV 12/23/19 01:21 40 mg STAT ONE Administration Sodium Chloride 1,000 mls @ 50 mls/hr 12/23/19 00:30 12/23/19 01:28 Sodium Chloride 0.9% 1000 Ml IV 01/22/20 00:29 50 mls/hr .Q20H PATRICE Administration Ceftriaxone Sodium/Dextrose 1 g in 50 mls @ 100 mls/hr 12/23/19 01:30 04:10 Rocephin 1 Gm-D5w 50 Ml Bag IV 12/23/19 01:59 Infused STAT STA Infusion Azithromycin 500 mg in 250 mls @ 250 mls/hr 12/23/19 01:30 12/23/19 04:09 Zithromax 500 Mg/ 250 Ml Nacl Premix IV 12/23/19 02:29 Infused STAT STA Infusion Azithromycin Confirm 12/23/19 02:36 Zithromax 500 Mg/ 250 Ml Nacl Premix Administered 12/23/19 02:37 Dose 500 mg in 250 mls @ ud IV .STK-MED ONE Ceftriaxone Sodium/Dextrose Confirm 12/23/19 02:36 Rocephin 1 Gm-D5w 50 Ml Bag Administered 12/23/19 02:37 Dose 1 g in 50 mls @ ud IV .STK-MED ONE Sodium Chloride Confirm 12/23/19 00:37 Sodium Chloride 0.9% 1000 Ml Administered 12/23/19 00:38 Dose 1,000 mls @ ud .ROUTE .STK-MED ONE Lorazepam 1 mg 12/23/19 02:49 12/23/19 02:51 Ativan 2 Mg/1 Ml Vial IV 12/23/19 02:50 1 mg STAT ONE Administration Lorazepam Confirm 12/23/19 02:50 Ativan 2 Mg/1 Ml Vial Administered 12/23/19 02:51 Dose 2 mg .ROUTE .STK-MED ONE Methylprednisolone Sodium Succinate 125 mg 12/23/19 00:27 12/23/19 00:44 Solu-Medrol 125 Mg IV 12/23/19 00:28 125 mg STAT ONE Administration Methylprednisolone Sodium Succinate Confirm 12/23/19 00:37 Solu-Medrol 125 Mg Administered 12/23/19 00:38 Dose 125 mg .ROUTE .STK-MED ONE Morphine Sulfate Confirm 12/23/19 01:13 Morphine Sulfate 2 Mg Inj Administered 12/23/19 01:14 Dose 2 mg .ROUTE .STK-MED ONE Morphine Sulfate 2 mg 12/23/19 01:20 12/23/19 01:27 Morphine Sulfate 2 Mg Inj IV 12/23/19 01:21 2 mg STAT ONE Administration Nitroglycerin 1 gm 12/23/19 01:51 12/23/19 02:41 Nitro-Bid 2% Ud Packets TOP 12/23/19 01:52 1 gm STAT ONE Administration Nitroglycerin Confirm 12/23/19 02:40 Nitro-Bid 2% Ud Packets Administered 12/23/19 02:41 Dose 1 gm .ROUTE .STK-MED ONE Ondansetron HCl 4 mg 12/23/19 00:24 12/23/19 01:29 Zofran 4 Mg/2 Ml Vial IV 12/23/19 00:25 4 mg STAT ONE Administration Ondansetron HCl Confirm 12/23/19 00:37 Zofran 4 Mg/2 Ml Vial Administered 12/23/19 00:38 Dose 4 mg .ROUTE .STK-MED ONE Ondansetron HCl Confirm 12/23/19 01:13 Zofran 4 Mg/2 Ml Vial Administered 12/23/19 01:14 Dose 4 mg .ROUTE .STK-MED ONE Ondansetron HCl 4 mg 12/23/19 01:28 12/23/19 01:30 Zofran 4 Mg/2 Ml Vial IV 12/23/19 01:29 4 mg STAT ONE Administration Promethazine HCl 12.5 mg 12/23/19 02:34 12/23/19 02:37 Phenergan 25 Mg Inj IM 12/23/19 02:35 12.5 mg STAT ONE Administration Promethazine HCl Confirm 12/23/19 02:35 Phenergan 25 Mg Inj Administered 12/23/19 02:36 Dose 25 mg .ROUTE .STK-MED ONE Lab/Rad Data: Laboratory Result Diagrams 12/23/19 00:56 12/23/19 00:56 Laboratory Results 12/23/19 12/23/19 12/23/19 Range/Units 03:11 03:09 01:47 WBC (4.0-10.5) K/mm3 RBC (4.1-5.4) M/mm3 Hgb (12.0-16.0) gm/dl Hct (35-47) % MCV (78-100) fl MCH (26-32) pg MCHC (32-36) g/dl RDW (11.5-14.0) % Plt Count (150-450) K/mm3 MPV (7.5-11.0) fl Segmented Neutrophils (36.0-66.0) % Lymphocytes (Manual) (24-44) % Monocytes (Manual) (0.0-12.0) % Eosinophils (Manual) (0.00-3.0) % Basophils (Manual) (0.0-1.0) % Atypical Lymphocytes % Platelet Estimate (NORMAL) RBC Morphology PT (9.95-12.35) SECONDS INR (0.8-3.0) Puncture Site LEFT RADIAL pCO2 37 (35-45) mmHg pO2 186 H* (75-100) mmHg Base Excess -2.2 L (-2.0-2.0) O2 Saturation 95.6 (94-100) g/dF ABG pH 7.39 (7.35-7.45) ABG HCO3 22.4 (22-28) ABG O2 Sat (Measured) 99.6 (95-100) % Gino Test YES A-a Gradient 53 a/A Ratio 0.78 Hemoglobin 12.2 Carboxyhemoglobin 2.9 (0.0-6.9) % THgb Methemoglobin 1.1 L (1.4-1.5) % Temperature 37.0 C POC O2 Flow Rate 40 % Vent Mode BiPAP Inspiratory BiPAP 14 Expiratory BiPAP 6 Sodium (137-145) mmol/L Potassium 2.9 L* (3.5-5.1) mmol/L Chloride (98-107) mmol/L Carbon Dioxide (22-30) mmol/L Anion Gap (5-15) MEQ/L BUN (7-17) mg/dL Creatinine (0.52-1.04) mg/dL Estimated GFR ML/MIN Glucose (74-106) mg/dL Lactic Acid 3.6 H (0.4-2.0) Calcium (8.4-10.2) mg/dL Total Bilirubin (0.2-1.3) mg/dL AST (14-36) U/L ALT (0-35) U/L Alkaline Phosphatase (38-126) U/L Troponin I 0.067 H* (0.000-0.034) ng/mL NT-Pro-B Natriuret Pep (0-1800) pg/mL Serum Total Protein (6.3-8.2) g/dL Albumin (3.5-5.0) g/dL Amylase (30-110) U/L Lipase (23-300) U/L 12/23/19 12/23/19 12/23/19 Range/Units 00:56 00:56 00:56 WBC (4.0-10.5) K/mm3 RBC (4.1-5.4) M/mm3 Hgb (12.0-16.0) gm/dl Hct (35-47) % MCV (78-100) fl MCH (26-32) pg MCHC (32-36) g/dl RDW (11.5-14.0) % Plt Count (150-450) K/mm3 MPV (7.5-11.0) fl Segmented Neutrophils (36.0-66.0) % Lymphocytes (Manual) (24-44) % Monocytes (Manual) (0.0-12.0) % Eosinophils (Manual) (0.00-3.0) % Basophils (Manual) (0.0-1.0) % Atypical Lymphocytes % Platelet Estimate (NORMAL) RBC Morphology PT 11.8 (9.95-12.35) SECONDS INR 1.04 (0.8-3.0) Puncture Site pCO2 (35-45) mmHg pO2 (75-100) mmHg Base Excess (-2.0-2.0) O2 Saturation (94-100) g/dF ABG pH (7.35-7.45) ABG HCO3 (22-28) ABG O2 Sat (Measured) (95-100) % Gino Test A-a Gradient a/A Ratio Hemoglobin Carboxyhemoglobin (0.0-6.9) % THgb Methemoglobin (1.4-1.5) % Temperature C POC O2 Flow Rate % Vent Mode Inspiratory BiPAP Expiratory BiPAP Sodium 137 (137-145) mmol/L Potassium 3.3 L (3.5-5.1) mmol/L Chloride 99 (98-107) mmol/L Carbon Dioxide 24 (22-30) mmol/L Anion Gap 16.6 H (5-15) MEQ/L BUN 15 (7-17) mg/dL Creatinine 0.93 (0.52-1.04) mg/dL Estimated GFR > 60.0 ML/MIN Glucose 327 H (74-106) mg/dL Lactic Acid (0.4-2.0) Calcium 8.9 (8.4-10.2) mg/dL Total Bilirubin 0.60 (0.2-1.3) mg/dL AST 30 (14-36) U/L ALT 22 (0-35) U/L Alkaline Phosphatase 127 H (38-126) U/L Troponin I 0.034 (0.000-0.034) ng/mL NT-Pro-B Natriuret Pep (0-1800) pg/mL Serum Total Protein 7.0 (6.3-8.2) g/dL Albumin 4.0 (3.5-5.0) g/dL Amylase 99 (30-110) U/L Lipase 96 (23-300) U/L 12/23/19 12/23/19 Range/Units 00:56 00:40 WBC 14.7 H (4.0-10.5) K/mm3 RBC 3.81 L (4.1-5.4) M/mm3 Hgb 12.7 (12.0-16.0) gm/dl Hct 38.7 (35-47) % MCV 101.6 H (78-100) fl MCH 33.3 H (26-32) pg MCHC 32.8 (32-36) g/dl RDW 14.9 H (11.5-14.0) % Plt Count 302 (150-450) K/mm3 MPV 11.4 H (7.5-11.0) fl Segmented Neutrophils 55 (36.0-66.0) % Lymphocytes (Manual) 27 (24-44) % Monocytes (Manual) 2 (0.0-12.0) % Eosinophils (Manual) 3 (0.00-3.0) % Basophils (Manual) 2 H (0.0-1.0) % Atypical Lymphocytes 11 % Platelet Estimate NORMAL (NORMAL) RBC Morphology NORMAL PT (9.95-12.35) SECONDS INR (0.8-3.0) Puncture Site pCO2 (35-45) mmHg pO2 (75-100) mmHg Base Excess (-2.0-2.0) O2 Saturation (94-100) g/dF ABG pH (7.35-7.45) ABG HCO3 (22-28) ABG O2 Sat (Measured) (95-100) % Gino Test A-a Gradient a/A Ratio Hemoglobin Carboxyhemoglobin (0.0-6.9) % THgb Methemoglobin (1.4-1.5) % Temperature C POC O2 Flow Rate % Vent Mode Inspiratory BiPAP Expiratory BiPAP Sodium (137-145) mmol/L Potassium (3.5-5.1) mmol/L Chloride (98-107) mmol/L Carbon Dioxide (22-30) mmol/L Anion Gap (5-15) MEQ/L BUN (7-17) mg/dL Creatinine (0.52-1.04) mg/dL Estimated GFR ML/MIN Glucose (74-106) mg/dL Lactic Acid (0.4-2.0) Calcium (8.4-10.2) mg/dL Total Bilirubin (0.2-1.3) mg/dL AST (14-36) U/L ALT (0-35) U/L Alkaline Phosphatase (38-126) U/L Troponin I (0.000-0.034) ng/mL NT-Pro-B Natriuret Pep 7020 H (0-1800) pg/mL Serum Total Protein (6.3-8.2) g/dL Albumin (3.5-5.0) g/dL Amylase (30-110) U/L Lipase (23-300) U/L - Progress Progress: improved, re-examined Air Movement: fair Progress Note: 12/23/19 02:23 84 years old presented with sudden shortness of breath. Patient was in respiratory distress on presentation. She is placed on oxygen and given DuoNeb and's Solu-Medrol. She is has audible wheezing and crackles. She is given a small dose of Lasix as well as her pressure is borderline. She is also given aspirin and Nitropaste. On reevaluation her pain is better but not completely improved. EKG did not show any acute ST elevation but has old Q waves. Initial troponins are negative. She has a white count of 14 and lactate of 3.6 with mildly low potassium of 3.3. She has bilateral congestion/edema with some element of pneumonia especially on the right side and started on Rocephin and Zithromax. Since patient has all her work-up done at [facility] and also we do not have ICU beds as if patient deteriorate, discussed with Dr. Granados at [facility] and patient is accepted for transfer. I have also ordered CTA chest and abdomen CT with contrast as with her sudden onset chest pain and shortness of breath PE is definitely in the differential. Patient currently going for CT and I would call Dr. Granados with positive findings of results which he agreed and accepted transfer. 12/23/[address] did not show any evidence of pulmonary embolism. Has pulmonary edema consistent with congestive heart failure. Patient is started on BiPAP and is improved. CT abdomen pelvis with contrast is negative. She is feeling much better on reevaluation after BiPAP placement. Blood Culture(s) Obtained: Yes Antibiotics given: Yes Discussed with Dr.: Other ([place]) Counseled pt/family regarding: lab results, diagnosis, rad results - Departure Departure Disposition: Transfer Clinical Impression: Respiratory failure Qualifiers: Chronicity: acute Respiratory failure complication: hypoxia and hypercapnia Qualified Code(s): J96.01 - Acute respiratory failure with hypoxia Pneumonia Qualifiers: Pneumonia type: due to unspecified organism Laterality: right Lung location: lower lobe of lung Qualified Code(s): J18.9 - Pneumonia, unspecified organism CHF exacerbation Qualifiers: Heart failure type: unspecified Qualified Code(s): I50.9 - Heart failure, unspecified Condition: Fair Critical Care Time: Yes Critical Care Time(excluding separately billable procedures): Critical 75-104 mins Referrals: JASON RUEDA MD [Primary Care Provider] - Instructions: Heart Failure
[2019-12-23] MEDS ORDERED: Sodium Chloride 0.9% 1000 ML 1,000 ML IV SCH (00:30)
[2019-12-23] MEDS ORDERED: solu-MEDROL 125 MG ONE (00:37)
[2019-12-23] MEDS ORDERED: Zofran 4 MG/2 ML VIAL ONE ×2 (00:37→01:13)
[2019-12-23] MEDS ORDERED: Sodium Chloride 0.9% 1000 ML 1,000 ML ONE (00:37)
[2019-12-23] MEDS: Zofran 4 MG/2 ML VIAL IV ONE ×2 (00:44→01:29)
[2019-12-23 01:07] LABS: INR 1.04 (0.8-3.0); PROTIME 11.8 SECONDS (9.95-12.35)
[2019-12-23 01:11] LABS: Hematocrit 38.7 % (35-47); Hemoglobin 12.7 gm/dl (12.0-16.0); Mean Cell Volume 101.6 fl (78-100); Mean Corpuscular Hemoglobin 33.3 pg (26-32); Mean Corpuscular Hgb Concent. 32.8 g/dl (32-36); Mean Platelet Volume 11.4 fl (7.5-11.0); Platelet Count 302 K/mm3 (150-450); Red Blood Count 3.81 M/mm3 (4.1-5.4); Red Cell Distribution Width 14.9 % (11.5-14.0); White Blood Count 14.7 K/mm3 (4.0-10.5)
[2019-12-23 01:12] LABS: ALKALINE PHOSPHATASE 127 U/L (38-126); AMYLASE 99 U/L (30-110); ANION GAP 16.6 MEQ/L (5-15); BLOOD UREA NITROGEN 15 mg/dL (7-17); CHLORIDE 99 mmol/L (98-107); Calcium 8.9 mg/dL (8.4-10.2); Carbon Dioxide 24 mmol/L (22-30); Creatinine 1 0.93 mg/dL (0.52-1.04); Glucose 327 mg/dL (74-106); LIPASE 96 U/L (23-300); Potassium 3.3 mmol/L (3.5-5.1); SGOT/AST 30 U/L (14-36); SGPT/ALT 22 U/L (0-35); SODIUM 137 mmol/L (137-145)
[2019-12-23] MEDS ORDERED: MORPHINE SULFATE 2 MG INJ ONE (01:13)
[2019-12-23] MEDS ORDERED: Lasix 40 MG/4 ML ONE (01:17)
[2019-12-23] MEDS ORDERED: Lasix 40 MG/4 ML IV ONE (01:20)
[2019-12-23] MEDS ORDERED: MORPHINE SULFATE 2 MG INJ IV ONE (01:20)
[2019-12-23] MEDS ORDERED: Zofran 4 MG/2 ML VIAL IV ONE (01:28)
[2019-12-23] MEDS ORDERED: Zithromax 500 MG/ 250 ML NaCl Premix 500 MG/250 ML IVPB IV STA (01:30)
[2019-12-23] MEDS ORDERED: ROCEPHIN 1 Gm-D5w 50 ml Bag** 1 G/50 ML IVPB IV STA (01:30)
[2019-12-23] MEDS ORDERED: NITRO-BID 2% UD PACKETS TOP ONE (01:51)
[2019-12-23 02:21] LABS: ATYPICAL LYMPHS 11 %; Basophil 2 % (0.0-1.0); Eosinophil 3 % (0.00-3.0); Lymphocytes 27 % (24-44); Monocyte 2 % (0.0-12.0); Neutrophils 55 % (36.0-66.0); Total Cells Counted 100
[2019-12-23 02:23] LABS: Platelet Estimate NORMAL (NORMAL)
[2019-12-23] MEDS ORDERED: Phenergan 25 MG INJ IM ONE (02:34)
[2019-12-23] MEDS ORDERED: Phenergan 25 MG INJ ONE (02:35)
[2019-12-23] MEDS ORDERED: ROCEPHIN 1 Gm-D5w 50 ml Bag** 1 G/50 ML IVPB IV ONE (02:36)
[2019-12-23] MEDS ORDERED: Zithromax 500 MG/ 250 ML NaCl Premix 500 MG/250 ML IVPB IV ONE (02:36)
[2019-12-23] MEDS ORDERED: NITRO-BID 2% UD PACKETS ONE (02:40)
[2019-12-23] MEDS ORDERED: Ativan 2 MG/1 ML VIAL IV ONE (02:49)
[2019-12-23] MEDS ORDERED: Ativan 2 MG/1 ML VIAL ONE (02:50)
[2019-12-23 03:20] LABS: A-aADO2 53; ABG HEMOGLOBIN 12.2; ARTERIAL BLD GAS O2 SATURATION 99.6 % (95-100); ARTERIAL BLOOD GAS BASE EXCESS -2.2 (-2.0-2.0); ARTERIAL BLOOD GAS FIO2 40 %; ARTERIAL BLOOD GAS PCO2 37 mmHg (35-45); ARTERIAL BLOOD GAS PO2 186 mmHg (75-100); ARTERIAL BLOOD GAS VENT MODE BiPAP; ARTERIAL BLOOD GAS pH 7.39 (7.35-7.45); CARBOXYHEMOGLOBIN 2.9 % THgb (0.0-6.9); HCO3- 22.4 (22-28); HGB O2 SAT 95.6 g/dF (94-100); Methhemoglobin 1.1 % (1.4-1.5); paO2 pAO1 0.78
[2019-12-23 03:21] LABS: ABG POTASSIUM 2.9 (3.5-5.1); ABG SITE LEFT RADIAL; ALLEN TEST OK? YES
[2019-12-23 04:17] VITALS: BP 95/88; PULSE 68; O2SAT 98
--- NOTE | 2019-12-23 09:04 | XRAY ---
Indication: Chest pain and short of breath. Pulmonary embolus. Multiple contiguous axial images obtained through the chest using 80 cc Isovue 370 contrast and PE protocol. Comparison: CT chest without contrast October 31, 2019. There is satisfactory opacification of the pulmonary arteries to include the lobar and segmental branches. No filling defect or pulmonary embolus. Heart is now enlarged. Aorta normal in course and caliber again with minimal calcifications. Stable small left hilar calcified nodes. No pathologic mediastinal/hilar lymphadenopathy. Examination of the lung parenchyma demonstrates new pulmonary edema and moderate bilateral pleural effusions with mild bibasilar compressive atelectasis. Stable left upper lobe peripheral calcified granuloma. Bony thorax intact again with osteopenia and mild degenerative changes throughout the spine. CT abdomen/pelvis reported separately. Impression: 1. Negative pulmonary embolus. 2. New cardiomegaly, pulmonary edema, and bilateral pleural effusions favoring cardiac decompensation. 3. Again evidence for old granulomatous disease. Comment: Preliminary interpretation was made by [facility]. No critical discrepancy.
--- NOTE | 2019-12-23 09:06 | XRAY ---
Indication: Short of breath. Pneumonia. Comparison: August 17, 2019. Portable chest demonstrates new borderline cardiomegaly, central vascular congestion, mild pulmonary edema, and small bibasilar effusions favoring cardiac decompensation. Superimposed pneumonia not completely excluded. Bony thorax intact again with osteopenia and degenerative changes.
--- NOTE | 2019-12-23 09:12 | XRAY ---
Indication: Chest pain, epigastric pain, short of breath. Multiple contiguous axial images obtained through the abdomen and pelvis using 80 cc Isovue 370 contrast only. Comparison: October 31, 2019. CT chest reported separately. Study slightly degraded by respiration artifact throughout. Noncontrasted stomach and bowel loops remain nonobstructed. Again previous reported appendectomy, cholecystectomy, and hysterectomy. Stable sigmoid diverticulosis without diverticulitis, hepatic cyst, minimal pneumobilia, right renal cyst, and Arroyo balloon catheter in situ. No free fluid/air. Remaining liver, pancreas, spleen, adrenal glands, kidneys, ureters, and bladder appear unremarkable. Stable mild aortoiliac calcifications. No AAA or pathologic retroperitoneal lymphadenopathy. Osseous structures again demonstrates osteopenia, degenerative changes throughout the thoracolumbar spine, degenerative changes of both hips, and left innominate bone deformity adjacent to the SI joint. Impression: 1. Stable pneumobilia, hepatic cyst, right renal cyst, sigmoid diverticulosis, Arroyo catheter, and chronic bony findings. 2. Remaining CT abdomen/pelvis with contrast exam is negative. Comment: Preliminary interpretation was made by [facility]. No critical discrepancy.
== END 2019-12-23 03:45 | disposition short-term general hospital (02) ==
LOC: ED 00:08
DX: J96.01 Acute respiratory failure with hypoxia (principal); J96.02 Acute respiratory failure with hypercapnia; J18.9 Pneumonia, unspecified organism; I50.9 Heart failure, unspecified; I10 Essential (primary) hypertension; E78.00 Pure hypercholesterolemia, unspecified; I25.10 Atherosclerotic heart disease of native coronary artery without angina pectoris; Z79.899 Other long term (current) drug therapy
CPT/HCPCS: 36000; 36415; 36600; 51702; 71045; 71260; 74177; 80053; 82150; 82375; 82803; 83605; 83690; 83880; 84484; 85025; 85610; 87040; 93005; 94002; 94640; 96360; 96365; 96368; 96372; 96374; 96375; 96376; 99285; 99291; 99292; U0003; J0456; J0696; J1940; J2060; J2270; J2405; J2550; J2930; A9270-GY

== ENCOUNTER 2020-01-06 15:33 | Observation (INO) | payer MEDICARE, OTHER ==
[2020-01-06] MEDS ORDERED: SUBLIMAZE 100 MCG/2 ML IV ONE ×2 (15:57→18:14)
[2020-01-06] MEDS ORDERED: Zofran 4 MG/2 ML VIAL IV ONE (15:59)
[2020-01-06] MEDS ORDERED: Zofran 4 MG/2 ML VIAL ONE (16:04)
[2020-01-06] MEDS ORDERED: SUBLIMAZE 100 MCG/2 ML ONE ×2 (16:05→18:17)
--- NOTE | 2020-01-06 16:05 | ERPHSYRPT ---
- History of Present Illness Time Seen by Provider: 01/06/20 15:40 Historian: patient Exam Limitations: no limitations Patient Subjective Stated Complaint: PT states "I had a bowel movement and then I had quite a bit of bright red blood come out and my stomach really hurts.:" Triage Nursing Assessment: Pt presented alert and oriented X 3, skin pwd Pt ambulates hunched over and holding her abdomen. Pt guarding and moaning. Pt in no apparent respiratory distress. Physician History: 84 yo wf w rectal bleeding and supr-pubic pain x 3hrs. Pain is a 10 and nothing makes better or worse. Pt denies N/V/D/chest pain/dyspnea/lightheadedness/focal weakness. She is taking aspirin/plavix. Timing/Duration: other (3 hours) Activities at Onset: rest Quality: other (Unable to describe) Abdominal Pain Onset Location: suprapubic Pain Radiation: no radiation Severity of Pain-Max: severe Modifying Factors: Improves With: nothing Associated Symptoms: No back, No chest pain, No diaphoresis, No diarrhea, No fever/chills, No fatigue, No headache, No heartburn, No loss of appetite, No nausea, No neck pain, No rash, No shortness of breath, No syncope, No vomiting, No weakness Previous symptoms: no prior history Allergies/Adverse Reactions: meperidine [From Demerol] Allergy (Intermediate, Verified 01/06/20 15:57) Vomiting cefaclor [From Ceclor] Adverse Reaction (Verified 10/24/19 07:25) Vomiting Penicillins Adverse Reaction (Verified 10/24/19 07:25) shakes Home Medications: Enalapril/Hydrochlorothiazide [Enalapril-Hctz 10-25 mg Tablet] 1 tab PO DAILY [History] Metoprolol Succinate [Toprol Xl] 50 mg PO DAILY 10/30/19 [History] Potassium Chloride [Klor-Con M10] 10 meq PO DAILY 10/30/19 [History] Amiodarone HCl 200 mg [Cordarone 200 MG] 200 mg PO DAILY 01/06/20 [History ] Atorvastatin Calcium 80 mg PO DAILY 01/06/20 [History] Clopidogrel Bisulfate [Clopidogrel] 75 mg PO DAILY 01/06/20 [History] Famotidine 20 mg [Pepcid 20 MG] 20 mg PO BID 01/06/20 [History] Hx Tetanus, Diphtheria Vaccination/Date Given: Yes Hx Influenza Vaccination/Date Given: Yes Hx Pneumococcal Vaccination/Date Given: Yes Immunizations Up to Date: Yes Travel Risk - International Travel Have you traveled outside of the country in past 3 weeks: No Have you or anyone close to you been diagnosed with or: No Do your reside in a community with a known COVID-19 case?: Yes If Yes where:: [place] - Coronavirus Screening Has patient experienced Coronavirus symptoms: No - Review of Systems Constitutional: No Fever, No Chills, No Fatigue, No Lethargy, No Malaise, No Night Sweats, No Weakness, No Weight Loss Eyes: No Symptoms Ears, Nose, & Throat: No Symptoms Respiratory: No Symptoms Cardiac: No Symptoms Abdominal/Gastrointestinal: Abdominal Pain, Hematochezia, No Nausea, No Vomiting , No Diarrhea, No Melena Genitourinary Symptoms: No Symptoms Musculoskeletal: No Symptoms Skin: No Symptoms Neurological: No Symptoms Psychological: No Symptoms Endocrine: No Symptoms Hematologic/Lymphatic: No Symptoms Immunological/Allergic: No Symptoms - Past Medical History Pertinent Past Medical History: Yes Neurological History: No Pertinent History ENT History: No Pertinent History Cardiac History: High Cholesterol, Hypertension, Myocardial Infarction (SC) Respiratory History: No Pertinent History Endocrine Medical History: No Pertinent History Musculoskeletal History: No Pertinent History GI Medical History: Gallbladder Disease History: No Pertinent History Psycho-Social History: No Pertinent History Female Reproductive Disorders: No Pertinent History Other Medical History: recent stemi and recent chf - Past Surgical History Past Surgical History: Yes Neuro Surgical History: No Pertinent History Cardiac: No Pertinent History Respiratory: No Pertinent History Gastrointestinal: Appendectomy, Cholecystectomy Genitourinary: No Pertinent History Musculoskeletal: Orthopedic Surgery Female Surgical History: Hysterectomy Other Surgical History: Lamenectomy, Rotator Cuff-Left, Back Surgery, cystocele. cardiac stents - Social History Smoking Status: Never smoker Exposure to second hand smoke: No Alcohol Use: None Drug Use: none Patient Lives Alone: Yes Significant Family History: no pertinent family hx - Female History Hx Now: No - Nursing Vital Signs Nursing Vital Signs: Initial Vital Signs Temperature 98.1 F 01/06/20 15:36 Pulse Rate 94 H 01/06/20 15:36 Respiratory Rate 22 01/06/20 15:36 Blood Pressure 126/71 01/06/20 15:36 O2 Sat by Pulse Oximetry 96 01/06/20 15:36 Pain Scale Pain Intensity 8 - Physical Exam General Appearance: mild distress Eye Exam: PERRL/EOMI, eyes nml inspection Ears, Nose, Throat Exam: normal ENT inspection, TMs normal, pharynx normal Neck Exam: normal inspection, non-tender, supple, full range of motion Respiratory Exam: normal breath sounds, lungs clear, respiratory distress, airway intact, No chest tenderness Cardiovascular Exam: regular rate/rhythm, normal heart sounds, normal peripheral pulses Gastrointestinal/Abdomen Exam: soft, other (Hyperactive BS) Rectal Exam: normal rectal tone, No hemorrhoids, No blood Back Exam: normal inspection, normal range of motion Extremity Exam: normal inspection, normal range of motion, No pelvis stable Neurologic Exam: alert, oriented x 3, cooperative, manager law II-XII nml as tested, normal mood/affect, nml cerebellar function Skin Exam: normal color, warm, dry, No rash Lymphatic Exam: No adenopathy, No axilla node tender (L) SpO2 Interpretation: normal SpO2: 96 O2 Delivery: Room Air - CT Exams Abdomen/Pelvis CT Interpretation: Tele-radiologist Report (CT ab-pelvis wo contrast-pleural effusions/diverticulosis wo diverticulitis), Other Ordered Tests: Active Orders 24 hr Category Date Time Status Bedrest with BRP/BSC ROUTINE Activity 01/06/20 18:30 Active Call Admit Doctor for Orders ON ADMISSION Care 01/06/20 18:29 Active Code Status Order ROUTINE Care 01/06/20 18:28 Active Fall Protocol ROUTINE Care 01/06/20 18:30 Active IV Care Q6H Care 01/06/20 18:28 Active IV Insertion STAT Care 01/06/20 15:40 Active Intake and Output Q12H Care 01/06/20 18:[address] in Observation ROUTINE Care 01/06/20 18:28 Active Vital Signs Q2H Care 01/06/20 18:29 Active NPO except Meds Diet 01/06/20 18:30 Active ABDOMEN AND PELVIS W CONTRAST [CT] Stat Exams 01/06/20 16:34 Taken CBC W DIFF AM.LAB Lab 01/07/20 04:00 Ordered CBC W DIFF Stat Lab 01/06/20 15:55 Completed CMP AM.LAB Lab 01/07/20 04:00 Ordered CMP Stat Lab 01/06/20 15:55 Completed Occult Blood, Other Screening Stat Lab 01/06/20 16:51 Completed PROTIME WITH INR Stat Lab 01/06/20 15:55 Completed PTT Stat Lab 01/06/20 15:55 Completed TROPONIN AM.LAB Lab 01/07/20 04:00 Ordered Respiratory Therapy Consult ONCE RT 01/06/20 18:28 Active Transfer Order Routine Transfer 01/06/20 Ordered Medication Summary Generic Name Dose Route Start Last Admin Trade Name Freq PRN Reason Stop Dose Admin Fentanyl Citrate 25 mcg 01/06/20 18:33 Sublimaze 100 Mcg/2 Ml IV 01/11/20 18:32 [id number] PRN SEVERE PAIN Ondansetron HCl 4 mg 01/06/20 18:28 Zofran 4 Mg/2 Ml Vial IV 02/05/20 18:27 Q6H PRN PRN NAUSEA/VOMITING Pantoprazole Sodium 40 mg 01/06/20 18:45 Protonix 40 Mg Iv IV 02/05/20 18:44 Q24H PATRICE Discontinued Medications Generic Name Dose Route Start Last Admin Trade Name Freq PRN Reason Stop Dose Admin Fentanyl Citrate 25 mcg 01/06/20 15:57 01/06/20 16:08 Sublimaze 100 Mcg/2 Ml IV 01/06/20 15:58 25 mcg STAT ONE Administration Fentanyl Citrate Confirm 01/06/20 16:05 Sublimaze 100 Mcg/2 Ml Administered 01/06/20 16:06 Dose 100 mcg .ROUTE .STK-MED ONE Fentanyl Citrate 25 mcg 01/06/20 18:14 01/06/20 18:18 Sublimaze 100 Mcg/2 Ml IV 01/06/20 18:15 25 mcg STAT ONE Administration Fentanyl Citrate Confirm 01/06/20 18:17 Sublimaze 100 Mcg/2 Ml Administered 01/06/20 18:18 Dose 100 mcg .ROUTE .STK-MED ONE Ondansetron HCl 4 mg 01/06/20 15:59 01/06/20 16:10 Zofran 4 Mg/2 Ml Vial IV 01/06/20 16:00 4 mg STAT ONE Administration Ondansetron HCl Confirm 01/06/20 16:04 Zofran 4 Mg/2 Ml Vial Administered 01/06/20 16:05 Dose 4 mg .ROUTE .STK-MED ONE Lab/Rad Data: Laboratory Result Diagrams 01/06/20 15:55 01/06/20 15:55 Laboratory Results 01/06/20 01/06/20 01/06/20 Range/Units 16:51 15:55 15:55 WBC (4.0-10.5) K/mm3 RBC (4.1-5.4) M/mm3 Hgb (12.0-16.0) gm/dl Hct (35-47) % MCV (78-100) fl MCH (26-32) pg MCHC (32-36) g/dl RDW (11.5-14.0) % Plt Count (150-450) K/mm3 MPV (7.5-11.0) fl Gran % (36.0-66.0) % Eos # (Auto) (0-0.5) Absolute Lymphs (auto) (1.0-4.6) Absolute Monos (auto) (0.0-1.3) Lymphocytes % (24.0-44.0) % Monocytes % (0.0-12.0) % Eosinophils % (0.00-5.0) % Basophils % (0.0-0.4) % Absolute Granulocytes (1.4-6.9) Basophils # (0-0.4) PT 11.8 (9.95-12.35) SECONDS INR 1.04 (0.8-3.0) APTT 32.0 (25.3-37.0) SECONDS Sodium 139 (137-145) mmol/L Potassium 3.5 (3.5-5.1) mmol/L Chloride 100 (98-107) mmol/L Carbon Dioxide 28 (22-30) mmol/L Anion Gap 14.7 (5-15) MEQ/L BUN 17 (7-17) mg/dL Creatinine 0.97 (0.52-1.04) mg/dL Estimated GFR 58.3 ML/MIN Glucose 181 H (74-106) mg/dL Calcium 9.5 (8.4-10.2) mg/dL Total Bilirubin 0.80 (0.2-1.3) mg/dL AST 29 (14-36) U/L ALT 21 (0-35) U/L Alkaline Phosphatase 105 (38-126) U/L Serum Total Protein 7.3 (6.3-8.2) g/dL Albumin 4.2 (3.5-5.0) g/dL Stool Occult Blood POSITIVE A (Negative) 01/06/20 Range/Units 15:55 WBC 12.1 H (4.0-10.5) K/mm3 RBC 4.02 L (4.1-5.4) M/mm3 Hgb 12.9 (12.0-16.0) gm/dl Hct 39.8 (35-47) % MCV 99.0 (78-100) fl MCH 32.1 H (26-32) pg MCHC 32.4 (32-36) g/dl RDW 14.1 H (11.5-14.0) % Plt Count 231 (150-450) K/mm3 MPV 11.7 H (7.5-11.0) fl Gran % 84.2 H (36.0-66.0) % Eos # (Auto) 0.05 (0-0.5) Absolute Lymphs (auto) 1.49 (1.0-4.6) Absolute Monos (auto) 0.35 (0.0-1.3) Lymphocytes % 12.3 L (24.0-44.0) % Monocytes % 2.9 (0.0-12.0) % Eosinophils % 0.4 (0.00-5.0) % Basophils % 0.2 (0.0-0.4) % Absolute Granulocytes 10.17 H (1.4-6.9) Basophils # 0.03 (0-0.4) PT (9.95-12.35) SECONDS INR (0.8-3.0) APTT (25.3-37.0) SECONDS Sodium (137-145) mmol/L Potassium (3.5-5.1) mmol/L Chloride (98-107) mmol/L Carbon Dioxide (22-30) mmol/L Anion Gap (5-15) MEQ/L BUN (7-17) mg/dL Creatinine (0.52-1.04) mg/dL Estimated GFR ML/MIN Glucose (74-106) mg/dL Calcium (8.4-10.2) mg/dL Total Bilirubin (0.2-1.3) mg/dL AST (14-36) U/L ALT (0-35) U/L Alkaline Phosphatase (38-126) U/L Serum Total Protein (6.3-8.2) g/dL Albumin (3.5-5.0) g/dL Stool Occult Blood (Negative) - Progress Progress: pain not gone completely Progress Note: 01/06/20 18:[address] Hanks. 25umg IV fentanyl x2 w mild relief/4mg IV zofran - Departure Departure Disposition: Observation Clinical Impression: GI bleed Condition: Stable Critical Care Time: No Referrals: JASON RUEDA MD [Primary Care Provider] -
[2020-01-06 16:09] LABS: Absolute Neutrophil Ct (ANC) 10.17 (1.4-6.9); BASOPHIL % 0.2 % (0.0-0.4); Basophil (Absolute #) 0.03 (0-0.4); Eosinophil % 0.4 % (0.00-5.0); Eosinophil (Absolute #) 0.05 (0-0.5); Hematocrit 39.8 % (35-47); Hemoglobin 12.9 gm/dl (12.0-16.0); Lymphocyte (Absolute #) 1.49 (1.0-4.6); Lymphocytes % 12.3 % (24.0-44.0); Mean Corpuscular Hemoglobin 32.1 pg (26-32); Mean Corpuscular Hgb Concent. 32.4 g/dl (32-36); Mean Platelet Volume 11.7 fl (7.5-11.0); Monocyte (Absolute #) 0.35 (0.0-1.3); Monocytes % 2.9 % (0.0-12.0); Neutrophil % 84.2 % (36.0-66.0); Platelet Count 231 K/mm3 (150-450); Red Blood Count 4.02 M/mm3 (4.1-5.4); Red Cell Distribution Width 14.1 % (11.5-14.0); White Blood Count 12.1 K/mm3 (4.0-10.5)
[2020-01-06 16:16] LABS: ALBUMIN 4.2 g/dL (3.5-5.0); ANION GAP 14.7 MEQ/L (5-15); BILIRUBIN,TOTAL 0.8 mg/dL (0.2-1.3); Calcium 9.5 mg/dL (8.4-10.2); Creatinine 1 0.97 mg/dL (0.52-1.04); Potassium 3.5 mmol/L (3.5-5.1); Total Protein 7.3 g/dL (6.3-8.2)
[2020-01-06 16:27] LABS: INR 1.04 (0.8-3.0); PROTIME 11.8 SECONDS (9.95-12.35)
[2020-01-06] MEDS ORDERED: PROTONIX 40 MG IV IV SCH (18:45)
[2020-01-06] MEDS ORDERED: DILAUDID 2 MG INJECTION IV SCH (19:15)
[2020-01-06] MEDS ORDERED: Hydromorphone 1 mg/ml Ampule ONE (19:15)
[2020-01-06] MEDS ORDERED: Hydromorphone 1 mg/ml Ampule IV ONE (19:29)
[2020-01-06] MEDS: SUBLIMAZE 100 MCG/2 ML IV PRN (21:18)
[2020-01-06] MEDS: Zofran 4 MG/2 ML VIAL IV PRN (21:18)
[2020-01-07] MEDS: SUBLIMAZE 100 MCG/2 ML IV PRN ×2 (04:59→17:19)
[2020-01-07 05:18] LABS: Absolute Neutrophil Ct (ANC) 14.59 (1.4-6.9); BASOPHIL % 0.2 % (0.0-0.4); Basophil (Absolute #) 0.03 (0-0.4); Eosinophil % 0.3 % (0.00-5.0); Eosinophil (Absolute #) 0.05 (0-0.5); Hematocrit 36.1 % (35-47); Hemoglobin 11.7 gm/dl (12.0-16.0); Lymphocyte (Absolute #) 0.94 (1.0-4.6); Lymphocytes % 5.8 % (24.0-44.0); Mean Cell Volume 98.9 fl (78-100); Mean Corpuscular Hemoglobin 32.1 pg (26-32); Mean Corpuscular Hgb Concent. 32.4 g/dl (32-36); Mean Platelet Volume 11.6 fl (7.5-11.0); Monocyte (Absolute #) 0.68 (0.0-1.3); Monocytes % 4.2 % (0.0-12.0); Neutrophil % 89.5 % (36.0-66.0); Platelet Count 210 K/mm3 (150-450); Red Blood Count 3.65 M/mm3 (4.1-5.4); Red Cell Distribution Width 14.3 % (11.5-14.0); White Blood Count 16.3 K/mm3 (4.0-10.5)
[2020-01-07 05:41] LABS: ALBUMIN 3.5 g/dL (3.5-5.0); ALKALINE PHOSPHATASE 92 U/L (38-126); ANION GAP 11.2 MEQ/L (5-15); BLOOD UREA NITROGEN 17 mg/dL (7-17); CHLORIDE 102 mmol/L (98-107); Calcium 8.5 mg/dL (8.4-10.2); Carbon Dioxide 28 mmol/L (22-30); Creatinine 1 0.81 mg/dL (0.52-1.04); Glucose 147 mg/dL (74-106); SGOT/AST 22 U/L (14-36); SGPT/ALT 18 U/L (0-35); SODIUM 138 mmol/L (137-145); TROPONIN 0.025 ng/mL (0.000-0.034); Total Protein 6.2 g/dL (6.3-8.2)
[2020-01-07] MEDS ORDERED: Sodium Chloride 0.9% 1000 ML 1,000 ML IV SCH (06:15)
[2020-01-07] MEDS: Levofloxacin 500MG/100ML D5W 500 MG/100 ML BAG IV SCH (06:25)
[2020-01-07] MEDS: POTASSIUM CHLORIDE 20 mEq IN WATER 100ML 20 MEQ/100 ML BAG IV SCH ×2 (06:25→07:42)
[2020-01-07 08:26] LABS: Appearance CLEAR (CLEAR); Bilirubin NEGATIVE (NEGATIVE); Blood NEGATIVE Ery/ul (0-5); Epithelial Cells RARE /HPF (FEW); Glucose NEGATIVE (NEGATIVE); Ketones NEGATIVE (NEGATIVE); Leukocyte Esterase NEGATIVE (NEGATIVE); Mucus SLIGHT /HPF (NEGATIVE); Nitrite NEGATIVE (NEGATIVE); Protein,Urine Dip NEGATIVE (Negative); RBC 0-2 /HPF (0-2); Specific Gravity 1.029 (1.005-1.025); Urobilinogen 2 mg/dL (0-1)
[2020-01-07] MEDS: LASIX 20 MG PO SCH ×2 (09:42→16:58)
[2020-01-07] MEDS: Klor Con 10 MEQ PO SCH (09:42)
[2020-01-07] MEDS: Cordarone 200 MG PO SCH (09:42)
[2020-01-07] MEDS: Pepcid 20 MG PO SCH (09:42)
[2020-01-07] MEDS: ZOCOR 20MG PO SCH (09:43)
[2020-01-07] MEDS ORDERED: LASIX 20 MG PO SCH (10:00)
[2020-01-07] MEDS ORDERED: NON-FORMULARY ITEM (Atorvastatin Calcium [Atorvastatin Calcium] 80 MG) PO SCH (10:00)
[2020-01-07] MEDS ORDERED: POTASSIUM CHLORIDE 20 MEQ PO SCH (10:00)
[2020-01-07 11:10] LABS: TSH, 3RD Generation 2.82 mIU/L (0.47-4.68)
[2020-01-07] MEDS: Toprol-Xl 25MG Tablets PO SCH (14:03)
--- NOTE | 2020-01-07 16:07 | PCM.CONS ---
History of Present Illness - Reason for Consult Chief Complaint: GI Bleed Reason for Consult: GIB Requesting Provider: BESSY LEIVA DO Consulting Provider: SANTHOSH SQUIRES MD History of Present Illness: is a 84 year old female. hx per chart review and d/w patient, primary md, and RN Patient Subjective Stated Complaint: PT states "I had a bowel movement and then I had quite a bit of bright red blood come out and my stomach really hurts.:" Triage Nursing Assessment: Pt presented alert and oriented X 3, skin pwd Pt ambulates hunched over and holding her abdomen. Pt guarding and moaning. Pt in no apparent respiratory distress. Physician History: Baseline constipation takes stool softeners, rectocele requiring self reduction once. did see a surgeon at [facility] for that and was going to get it repaired but had an MT 1 month ago then restented 2 weeks ago. Was doing ok until yesterday 13:00 BM did have some straining, stool was brown but then had some bright red that mixed in the bowl making the bowl red and some blood on the toilet paper. admitted to obs. overnight had a couple small formed stools. Pain did get better. no pain right now. no n/v. 84 yo wf w rectal bleeding and supr-pubic pain x 3hrs. Pain is a 10 and nothing makes better or worse. Pt denies N/V/D/chest pain/dyspnea/lightheadedness/focal weakness. She is taking aspirin/plavix. Timing/Duration: other (3 hours) Activities at Onset: rest Quality: other (Unable to describe) Abdominal Pain Onset Location: suprapubic Pain Radiation: no radiation Severity of Pain-Max: severe Modifying Factors: Improves With: nothing Associated Symptoms: No back, No chest pain, No diaphoresis, No diarrhea, No fever/chills, No fatigue, No headache, No heartburn, No loss of appetite, No nausea, No neck pain, No rash, No shortness of breath, No syncope, No vomiting, No weakness Previous symptoms: no prior history Allergies/Adverse Reactions: meperidine [From Demerol] Allergy (Intermediate, Verified 01/06/20 15:57) Vomiting cefaclor [From Ceclor] Adverse Reaction (Verified 10/24/19 07:25) Vomiting Penicillins Adverse Reaction (Verified 10/24/19 07:25) shakes Home Medications: Enalapril/Hydrochlorothiazide [Enalapril-Hctz 10-25 mg Tablet] 1 tab PO DAILY [History] Metoprolol Succinate [Toprol Xl] 50 mg PO DAILY 10/30/19 [History] Potassium Chloride [Klor-Con M10] 10 meq PO DAILY 10/30/19 [History] Amiodarone HCl 200 mg [Cordarone 200 MG] 200 mg PO DAILY 01/06/20 [History ] Atorvastatin Calcium 80 mg PO DAILY 01/06/20 [History] Clopidogrel Bisulfate [Clopidogrel] 75 mg PO DAILY 01/06/20 [History] Famotidine 20 mg [Pepcid 20 MG] 20 mg PO BID 01/06/20 [History] Hx Tetanus, Diphtheria Vaccination/Date Given: Yes Hx Influenza Vaccination/Date Given: Yes Hx Pneumococcal Vaccination/Date Given: Yes Immunizations Up to Date: Yes Travel Risk Medications & Allergies Home Medications: Home Medication List Potassium Chloride [Klor-Con M10] 20 meq PO DAILY 10/30/19 [History Confirmed ] Amiodarone HCl 200 mg [Cordarone 200 MG] 200 mg PO DAILY 01/06/20 [ History Confirmed 01/06/20] Aspirin [Aspirin EC] 81 mg PO DAILY 01/06/20 [History Confirmed 01/06/20] Atorvastatin Calcium 80 mg PO DAILY 01/06/20 [History Confirmed 01/06/20] Clopidogrel Bisulfate [Clopidogrel] 75 mg PO DAILY 01/06/20 [History Confirmed 01/06/20] Famotidine 20 mg [Pepcid 20 MG] 40 mg PO DAILY 01/06/20 [History Confirmed 01/06/20] Furosemide 20 mg [Lasix 20 mg] 20 mg PO BID 01/06/20 [History Confirmed ] Metoprolol Succinate [Toprol Xl] 12.5 mg PO HS 01/06/20 [History Confirmed 01/05] Allergies/Adverse Reactions: Allergies Allergy/AdvReac Type Severity Reaction Status Date / Time meperidine [From Demerol] Allergy Intermediate Vomiting Verified 01/06/20 15:57 cefaclor [From Ceclor] AdvReac Vomiting Verified 10/24/19 07:25 Penicillins AdvReac shakes Verified 10/24/19 07:25 - Past Medical History Past Medical History: Yes Neurological History: No Pertinent History ENT History: No Pertinent History Cardiac History: High Cholesterol, Hypertension, Myocardial Infarction (MT) Respiratory History: No Pertinent History Endocrine Medical History: No Pertinent History Musculoskelatal History: No Pertinent History GI Medical History: Gallbladder Disease History: No Pertinent History Pyscho-Social History: No Pertinent History Reproductive Disorders: No Pertinent History Comment: recent stemi and recent chf - Female History Are you now?: No - Past Surgical History Past Surgical History: Yes Neuro Surgical History: No Pertinent History Cardiac History: No Pertinent History Respiratory Surgery: No Pertinent History GI Surgical History: Appendectomy, Cholecystectomy Genitourinary Surgical Hx: No Pertinent History Musculskeletal Surgical Hx: Orthopedic Surgery Female Surgical History: Hysterectomy Other Surgical History: Lamenectomy, Rotator Cuff-Left, Back Surgery, cystocele. cardiac stents - Social History Smoking Status: Never smoker Exposure to second hand smoke: No Alcohol: None Drug Use: none Significant Family History: no pertinent family hx - Physical Exam Vital Signs: Vital Signs - 24 hr Temp Pulse Resp BP Pulse Ox 01/07/20 14:00 84 18 92/71 96 01/07/20 12:00 98.2 F 85 18 100/48 98 01/07/20 10:00 82 20 97/58 97 01/07/20 08:00 83 22 90/42 97 01/07/20 06:27 96 01/07/20 06:00 98.5 F 75 18 98/42 95 01/07/20 04:00 98.4 F 82 20 102/48 96 01/07/20 02:00 98.4 F 80 23 87/52 96 01/07/20 00:01 80 01/07/20 00:00 98.6 F 80 23 98/51 96 01/06/20 22:00 98.1 F 78 19 98/51 01/06/20 20:47 98.0 F 76 23 115/55 96 01/06/20 20:43 76 23 96 01/06/20 18:48 96 01/06/20 18:27 82 20 115/55 98 01/06/20 18:24 83 18 115/55 94 L 01/06/20 17:12 98.0 F 88 18 110/52 96 General Appearance: no apparent distress, alert, thin Neurologic Exam: alert, oriented x 3, cooperative, No motor deficits, No abnormal gait Eye Exam: eyes nml inspection, No scleral icterus Neck Exam: normal inspection Respiratory Exam: No respiratory distress Cardiovascular Exam: regular rate/rhythm Gastrointestinal/Abdomen Exam: soft, No tenderness, No distention, No mass, No guarding Pelvic Exam: other (external exam normal no rectocele protusion) Rectal Exam: other (external normal. vault with stool. disimpacted brown formed stool balls. soft brown stool proximal.) Extremity Exam: normal inspection Skin Exam: normal color, warm, dry Results - Labs Lab/Micro Results: Lab Results-Last 24 Hours 01/06/20 01/06/20 01/06/20 Range/Units 15:55 15:55 15:55 WBC 12.1 H (4.0-10.5) K/mm3 RBC 4.02 L (4.1-5.4) M/mm3 Hgb 12.9 (12.0-16.0) gm/dl Hct 39.8 (35-47) % MCV 99.0 (78-100) fl MCH 32.1 H (26-32) pg MCHC 32.4 (32-36) g/dl RDW 14.1 H (11.5-14.0) % Plt Count 231 (150-450) K/mm3 MPV 11.7 H (7.5-11.0) fl Gran % 84.2 H (36.0-66.0) % Eos # (Auto) 0.05 (0-0.5) Absolute Lymphs (auto) 1.49 (1.0-4.6) Absolute Monos (auto) 0.35 (0.0-1.3) Lymphocytes % 12.3 L (24.0-44.0) % Monocytes % 2.9 (0.0-12.0) % Eosinophils % 0.4 (0.00-5.0) % Basophils % 0.2 (0.0-0.4) % Absolute Granulocytes 10.17 H (1.4-6.9) Basophils # 0.03 (0-0.4) PT 11.8 (9.95-12.35) SECONDS INR 1.04 (0.8-3.0) APTT 32.0 (25.3-37.0) SECONDS Sodium 139 (137-145) mmol/L Potassium 3.5 (3.5-5.1) mmol/L Chloride 100 (98-107) mmol/L Carbon Dioxide 28 (22-30) mmol/L Anion Gap 14.7 (5-15) MEQ/L BUN 17 (7-17) mg/dL Creatinine 0.97 (0.52-1.04) mg/dL Estimated GFR 58.3 ML/MIN Glucose 181 H (74-106) mg/dL Hemoglobin A1c (4.5-6.0) % Calcium 9.5 (8.4-10.2) mg/dL Total Bilirubin 0.80 (0.2-1.3) mg/dL AST 29 (14-36) U/L ALT 21 (0-35) U/L Alkaline Phosphatase 105 (38-126) U/L Troponin I (0.000-0.034) ng/mL Serum Total Protein 7.3 (6.3-8.2) g/dL Albumin 4.2 (3.5-5.0) g/dL Vitamin B12 (239-931) pg/mL TSH 3rd Generation (0.47-4.68) mIU/L Urine Color (YELLOW) Urine Appearance (CLEAR) Urine pH (5-6) Ur Specific [place] (1.005-1.025) Urine Protein (Negative) Urine Ketones (NEGATIVE) Urine Blood (0-5) Anibal/ul Urine Nitrite (NEGATIVE) Urine Bilirubin (NEGATIVE) Urine Urobilinogen (0-1) mg/dL Ur Leukocyte Esterase (NEGATIVE) Urine WBC (Auto) (0-5) /HPF Urine RBC (Auto) (0-2) /HPF U Epithel Cells (Auto) (FEW) /HPF Urine Bacteria (Auto) (NEGATIVE) /HPF Urine Mucus (Auto) (NEGATIVE) /HPF Urine Culture Reflexed (NO) Urine Glucose (NEGATIVE) mg/dL Stool Occult Blood (Negative) 01/06/20 01/07/20 01/07/20 Range/Units 16:51 04:35 04:35 WBC 16.3 H (4.0-10.5) K/mm3 RBC 3.65 L (4.1-5.4) M/mm3 Hgb 11.7 L (12.0-16.0) gm/dl Hct 36.1 (35-47) % MCV 98.9 (78-100) fl MCH 32.1 H (26-32) pg MCHC 32.4 (32-36) g/dl RDW 14.3 H (11.5-14.0) % Plt Count 210 (150-450) K/mm3 MPV 11.6 H (7.5-11.0) fl Gran % 89.5 H (36.0-66.0) % Eos # (Auto) 0.05 (0-0.5) Absolute Lymphs (auto) 0.94 L (1.0-4.6) Absolute Monos (auto) 0.68 (0.0-1.3) Lymphocytes % 5.8 L (24.0-44.0) % Monocytes % 4.2 (0.0-12.0) % Eosinophils % 0.3 (0.00-5.0) % Basophils % 0.2 (0.0-0.4) % Absolute Granulocytes 14.59 H (1.4-6.9) Basophils # 0.03 (0-0.4) PT (9.95-12.35) SECONDS INR (0.8-3.0) APTT (25.3-37.0) SECONDS Sodium 138 (137-145) mmol/L Potassium 3.0 L (3.5-5.1) mmol/L Chloride 102 (98-107) mmol/L Carbon Dioxide 28 (22-30) mmol/L Anion Gap 11.2 (5-15) MEQ/L BUN 17 (7-17) mg/dL Creatinine 0.81 (0.52-1.04) mg/dL Estimated GFR > 60.0 ML/MIN Glucose 147 H (74-106) mg/dL Hemoglobin A1c (4.5-6.0) % Calcium 8.5 (8.4-10.2) mg/dL Total Bilirubin 0.50 (0.2-1.3) mg/dL AST 22 (14-36) U/L ALT 18 (0-35) U/L Alkaline Phosphatase 92 (38-126) U/L Troponin I 0.025 (0.000-0.034) ng/mL Serum Total Protein 6.2 L (6.3-8.2) g/dL Albumin 3.5 (3.5-5.0) g/dL Vitamin B12 (239-931) pg/mL TSH 3rd Generation (0.47-4.68) mIU/L Urine Color (YELLOW) Urine Appearance (CLEAR) Urine pH (5-6) Ur Specific [place] (1.005-1.025) Urine Protein (Negative) Urine Ketones (NEGATIVE) Urine Blood (0-5) Anibal/ul Urine Nitrite (NEGATIVE) Urine Bilirubin (NEGATIVE) Urine Urobilinogen (0-1) mg/dL Ur Leukocyte Esterase (NEGATIVE) Urine WBC (Auto) (0-5) /HPF Urine RBC (Auto) (0-2) /HPF U Epithel Cells (Auto) (FEW) /HPF Urine Bacteria (Auto) (NEGATIVE) /HPF Urine Mucus (Auto) (NEGATIVE) /HPF Urine Culture Reflexed (NO) Urine Glucose (NEGATIVE) mg/dL Stool Occult Blood POSITIVE A (Negative) 01/07/20 01/07/20 01/07/20 Range/Units 04:35 04:35 08:02 WBC (4.0-10.5) K/mm3 RBC (4.1-5.4) M/mm3 Hgb (12.0-16.0) gm/dl Hct (35-47) % MCV (78-100) fl MCH (26-32) pg MCHC (32-36) g/dl RDW (11.5-14.0) % Plt Count (150-450) K/mm3 MPV (7.5-11.0) fl Gran % (36.0-66.0) % Eos # (Auto) (0-0.5) Absolute Lymphs (auto) (1.0-4.6) Absolute Monos (auto) (0.0-1.3) Lymphocytes % (24.0-44.0) % Monocytes % (0.0-12.0) % Eosinophils % (0.00-5.0) % Basophils % (0.0-0.4) % Absolute Granulocytes (1.4-6.9) Basophils # (0-0.4) PT (9.95-12.35) SECONDS INR (0.8-3.0) APTT (25.3-37.0) SECONDS Sodium (137-145) mmol/L Potassium (3.5-5.1) mmol/L Chloride (98-107) mmol/L Carbon Dioxide (22-30) mmol/L Anion Gap (5-15) MEQ/L BUN (7-17) mg/dL Creatinine (0.52-1.04) mg/dL Estimated GFR ML/MIN Glucose (74-106) mg/dL Hemoglobin A1c 5.34 (4.5-6.0) % Calcium (8.4-10.2) mg/dL Total Bilirubin (0.2-1.3) mg/dL AST (14-36) U/L ALT (0-35) U/L Alkaline Phosphatase (38-126) U/L Troponin I (0.000-0.034) ng/mL Serum Total Protein (6.3-8.2) g/dL Albumin (3.5-5.0) g/dL Vitamin B12 294 (239-931) pg/mL TSH 3rd Generation 2.820 (0.47-4.68) mIU/L Urine Color INDIO (YELLOW) Urine Appearance CLEAR (CLEAR) Urine pH 5.0 (5-6) Ur Specific [place] 1.029 (1.005-1.025) Urine Protein NEGATIVE (Negative) Urine Ketones NEGATIVE (NEGATIVE) Urine Blood NEGATIVE (0-5) Anibal/ul Urine Nitrite NEGATIVE (NEGATIVE) Urine Bilirubin NEGATIVE (NEGATIVE) Urine Urobilinogen 2 (0-1) mg/dL Ur Leukocyte Esterase NEGATIVE (NEGATIVE) Urine WBC (Auto) NONE (0-5) /HPF Urine RBC (Auto) 0-2 (0-2) /HPF U Epithel Cells (Auto) RARE (FEW) /HPF Urine Bacteria (Auto) NONE (NEGATIVE) /HPF Urine Mucus (Auto) SLIGHT (NEGATIVE) /HPF Urine Culture Reflexed NO (NO) Urine Glucose NEGATIVE (NEGATIVE) mg/dL Stool Occult Blood (Negative) 01/07/20 Range/Units 12:25 WBC (4.0-10.5) K/mm3 RBC (4.1-5.4) M/mm3 Hgb (12.0-16.0) gm/dl Hct (35-47) % MCV (78-100) fl MCH (26-32) pg MCHC (32-36) g/dl RDW (11.5-14.0) % Plt Count (150-450) K/mm3 MPV (7.5-11.0) fl Gran % (36.0-66.0) % Eos # (Auto) (0-0.5) Absolute Lymphs (auto) (1.0-4.6) Absolute Monos (auto) (0.0-1.3) Lymphocytes % (24.0-44.0) % Monocytes % (0.0-12.0) % Eosinophils % (0.00-5.0) % Basophils % (0.0-0.4) % Absolute Granulocytes (1.4-6.9) Basophils # (0-0.4) PT (9.95-12.35) SECONDS INR (0.8-3.0) APTT (25.3-37.0) SECONDS Sodium (137-145) mmol/L Potassium 3.8 D (3.5-5.1) mmol/L Chloride (98-107) mmol/L Carbon Dioxide (22-30) mmol/L Anion Gap (5-15) MEQ/L BUN (7-17) mg/dL Creatinine (0.52-1.04) mg/dL Estimated GFR ML/MIN Glucose (74-106) mg/dL Hemoglobin A1c (4.5-6.0) % Calcium (8.4-10.2) mg/dL Total Bilirubin (0.2-1.3) mg/dL AST (14-36) U/L ALT (0-35) U/L Alkaline Phosphatase (38-126) U/L Troponin I (0.000-0.034) ng/mL Serum Total Protein (6.3-8.2) g/dL Albumin (3.5-5.0) g/dL Vitamin B12 (239-931) pg/mL TSH 3rd Generation (0.47-4.68) mIU/L Urine Color (YELLOW) Urine Appearance (CLEAR) Urine pH (5-6) Ur Specific [place] (1.005-1.025) Urine Protein (Negative) Urine Ketones (NEGATIVE) Urine Blood (0-5) Anibal/ul Urine Nitrite (NEGATIVE) Urine Bilirubin (NEGATIVE) Urine Urobilinogen (0-1) mg/dL Ur Leukocyte Esterase (NEGATIVE) Urine WBC (Auto) (0-5) /HPF Urine RBC (Auto) (0-2) /HPF U Epithel Cells (Auto) (FEW) /HPF Urine Bacteria (Auto) (NEGATIVE) /HPF Urine Mucus (Auto) (NEGATIVE) /HPF Urine Culture Reflexed (NO) Urine Glucose (NEGATIVE) mg/dL Stool Occult Blood (Negative) - Radiology Impressions Radiology Exams & Impressions: Radiology Procedures Category Date Time Status ABDOMEN AND PELVIS W CONTRAST [CT] Stat Exams 01/06/20 16:34 Taken - Other Procedures and Tests Respiratory Therapy 01/06/20 20:42 Oxygen Nasal Cannula 2 lpm Assessment/Plan (1) GI bleed Current Visit: Yes Status: Acute Assessment & Plan: 84yo female with recent MT, cath x2 with constipation and small bright red blood per rectum likely hemorrhoidal. Exam with stool impaction, brown nonbloody stool, CT with extensive stool burden and impaction. Also rectocele but i did produce on my exam without straining. -aggressive bowel regimen -continue asa/plavix risk of heart outweighs GIB -f/u in office. last c scope 20 years ago. 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 Maybe a diagnostic still on blood thinners if heart function satisfactory. Code(s): K92.2 - GASTROINTESTINAL HEMORRHAGE, UNSPECIFIED
--- NOTE | 2020-01-07 16:38 | PCM.NOTE ---
Date and Time: 01/07/201626 Subjective Assessment: Patient presented to ER with c/o low abdominal pain and 2 bouts of bright red blood following stool. She is a patient of [facility] Gamez and is S/P stent placement x2 1 month ago and required restenting of 1 of the stents 3 weeks ago. She has been pain free since then. She has Hx chronic constipation and takes a stool softner. Hgb is stable . She had 2 solid BMs through the night and no blood. Dr Yared Hampton is here to evaluate patient. He was able to manually disimpact patient at the bedside.See consult notes. Patient has not had a colonoscopy for "20years". She is not a candidate for colonoscopy due to recent MA. - Review of Systems Constitutional: Chills, Weakness Eyes: No Symptoms Respiratory: No Symptoms Cardiac: No Symptoms Abdominal/Gastrointestinal: Abdominal Pain, Nausea, Constipation, Appetite Changes Genitourinary Symptoms: No Symptoms Musculoskeletal: Other (no acute s/s) Skin: No Symptoms Objective Exam General Appearance: mild distress Neurologic Exam: alert, oriented x 3, cooperative, normal mood/affect Skin Exam: normal color, warm, dry Eye Exam: eyes nml inspection Ears, Nose, Throat Exam: normal ENT inspection Neck Exam: normal inspection Respiratory Exam: normal breath sounds Cardiovascular Exam: regular rate/rhythm Gastrointestinal/Abdomen Exam: soft, tenderness (left mid), distention Extremity Exam: normal inspection Rectal Exam: other (Dr Hampton) OBJECTIVE DATA Vital Signs: Vital Signs - 24 hr Temp Pulse Resp BP Pulse Ox 01/07/20 16:00 98.2 F 82 16 107/50 99 01/07/20 14:00 84 18 92/71 96 01/07/20 12:00 98.2 F 85 18 100/48 98 01/07/20 10:00 82 20 97/58 97 01/07/20 08:00 83 22 90/42 97 01/07/20 06:27 96 01/07/20 06:00 98.5 F 75 18 98/42 95 01/07/20 04:00 98.4 F 82 20 102/48 96 01/07/20 02:00 98.4 F 80 23 87/52 96 01/07/20 00:01 80 01/07/20 00:00 98.6 F 80 23 98/51 96 01/06/20 22:00 98.1 F 78 19 98/51 01/06/20 20:47 98.0 F 76 23 115/55 96 01/06/20 20:43 76 23 96 01/06/20 18:48 96 01/06/20 18:27 82 20 115/55 98 01/06/20 18:24 83 18 115/55 94 L 01/06/20 17:12 98.0 F 88 18 110/52 96 Pain Assessment - Last Documented Pain Intensity 0 Pain Scale Used 0-10 Pain Scale Intake and Output: Intake & Output 01/05/20 01/06/20 01/07/20 01/08/20 11:59 11:59 11:59 11:59 Intake Total 0 Output Total 600 Balance -600 Weight 64.864 kg Lab Results: Lab Results-Last 24 Hours 01/06/20 01/06/20 01/07/20 Range/Units 15:55 16:51 04:35 WBC 16.3 H (4.0-10.5) K/mm3 RBC 3.65 L (4.1-5.4) M/mm3 Hgb 11.7 L (12.0-16.0) gm/dl Hct 36.1 (35-47) % MCV 98.9 (78-100) fl MCH 32.1 H (26-32) pg MCHC 32.4 (32-36) g/dl RDW 14.3 H (11.5-14.0) % Plt Count 210 (150-450) K/mm3 MPV 11.6 H (7.5-11.0) fl Gran % 89.5 H (36.0-66.0) % Eos # (Auto) 0.05 (0-0.5) Absolute Lymphs (auto) 0.94 L (1.0-4.6) Absolute Monos (auto) 0.68 (0.0-1.3) Lymphocytes % 5.8 L (24.0-44.0) % Monocytes % 4.2 (0.0-12.0) % Eosinophils % 0.3 (0.00-5.0) % Basophils % 0.2 (0.0-0.4) % Absolute Granulocytes 14.59 H (1.4-6.9) Basophils # 0.03 (0-0.4) PT 11.8 (9.95-12.35) SECONDS INR 1.04 (0.8-3.0) APTT 32.0 (25.3-37.0) SECONDS Sodium (137-145) mmol/L Potassium (3.5-5.1) mmol/L Chloride (98-107) mmol/L Carbon Dioxide (22-30) mmol/L Anion Gap (5-15) MEQ/L BUN (7-17) mg/dL Creatinine (0.52-1.04) mg/dL Estimated GFR ML/MIN Glucose (74-106) mg/dL Hemoglobin A1c (4.5-6.0) % Calcium (8.4-10.2) mg/dL Total Bilirubin (0.2-1.3) mg/dL AST (14-36) U/L ALT (0-35) U/L Alkaline Phosphatase (38-126) U/L Troponin I (0.000-0.034) ng/mL Serum Total Protein (6.3-8.2) g/dL Albumin (3.5-5.0) g/dL Vitamin B12 (239-931) pg/mL TSH 3rd Generation (0.47-4.68) mIU/L Urine Color (YELLOW) Urine Appearance (CLEAR) Urine pH (5-6) Ur Specific [place] (1.005-1.025) Urine Protein (Negative) Urine Ketones (NEGATIVE) Urine Blood (0-5) Anibal/ul Urine Nitrite (NEGATIVE) Urine Bilirubin (NEGATIVE) Urine Urobilinogen (0-1) mg/dL Ur Leukocyte Esterase (NEGATIVE) Urine WBC (Auto) (0-5) /HPF Urine RBC (Auto) (0-2) /HPF U Epithel Cells (Auto) (FEW) /HPF Urine Bacteria (Auto) (NEGATIVE) /HPF Urine Mucus (Auto) (NEGATIVE) /HPF Urine Culture Reflexed (NO) Urine Glucose (NEGATIVE) mg/dL Stool Occult Blood POSITIVE A (Negative) 01/07/20 01/07/20 01/07/20 Range/Units 04:35 04:35 04:35 WBC (4.0-10.5) K/mm3 RBC (4.1-5.4) M/mm3 Hgb (12.0-16.0) gm/dl Hct (35-47) % MCV (78-100) fl MCH (26-32) pg MCHC (32-36) g/dl RDW (11.5-14.0) % Plt Count (150-450) K/mm3 MPV (7.5-11.0) fl Gran % (36.0-66.0) % Eos # (Auto) (0-0.5) Absolute Lymphs (auto) (1.0-4.6) Absolute Monos (auto) (0.0-1.3) Lymphocytes % (24.0-44.0) % Monocytes % (0.0-12.0) % Eosinophils % (0.00-5.0) % Basophils % (0.0-0.4) % Absolute Granulocytes (1.4-6.9) Basophils # (0-0.4) PT (9.95-12.35) SECONDS INR (0.8-3.0) APTT (25.3-37.0) SECONDS Sodium 138 (137-145) mmol/L Potassium 3.0 L (3.5-5.1) mmol/L Chloride 102 (98-107) mmol/L Carbon Dioxide 28 (22-30) mmol/L Anion Gap 11.2 (5-15) MEQ/L BUN 17 (7-17) mg/dL Creatinine 0.81 (0.52-1.04) mg/dL Estimated GFR > 60.0 ML/MIN Glucose 147 H (74-106) mg/dL Hemoglobin A1c 5.34 (4.5-6.0) % Calcium 8.5 (8.4-10.2) mg/dL Total Bilirubin 0.50 (0.2-1.3) mg/dL AST 22 (14-36) U/L ALT 18 (0-35) U/L Alkaline Phosphatase 92 (38-126) U/L Troponin I 0.025 (0.000-0.034) ng/mL Serum Total Protein 6.2 L (6.3-8.2) g/dL Albumin 3.5 (3.5-5.0) g/dL Vitamin B12 294 (239-931) pg/mL TSH 3rd Generation 2.820 (0.47-4.68) mIU/L Urine Color (YELLOW) Urine Appearance (CLEAR) Urine pH (5-6) Ur Specific [place] (1.005-1.025) Urine Protein (Negative) Urine Ketones (NEGATIVE) Urine Blood (0-5) Anibal/ul Urine Nitrite (NEGATIVE) Urine Bilirubin (NEGATIVE) Urine Urobilinogen (0-1) mg/dL Ur Leukocyte Esterase (NEGATIVE) Urine WBC (Auto) (0-5) /HPF Urine RBC (Auto) (0-2) /HPF U Epithel Cells (Auto) (FEW) /HPF Urine Bacteria (Auto) (NEGATIVE) /HPF Urine Mucus (Auto) (NEGATIVE) /HPF Urine Culture Reflexed (NO) Urine Glucose (NEGATIVE) mg/dL Stool Occult Blood (Negative) 01/07/20 01/07/20 Range/Units 08:02 12:25 WBC (4.0-10.5) K/mm3 RBC (4.1-5.4) M/mm3 Hgb (12.0-16.0) gm/dl Hct (35-47) % MCV (78-100) fl MCH (26-32) pg MCHC (32-36) g/dl RDW (11.5-14.0) % Plt Count (150-450) K/mm3 MPV (7.5-11.0) fl Gran % (36.0-66.0) % Eos # (Auto) (0-0.5) Absolute Lymphs (auto) (1.0-4.6) Absolute Monos (auto) (0.0-1.3) Lymphocytes % (24.0-44.0) % Monocytes % (0.0-12.0) % Eosinophils % (0.00-5.0) % Basophils % (0.0-0.4) % Absolute Granulocytes (1.4-6.9) Basophils # (0-0.4) PT (9.95-12.35) SECONDS INR (0.8-3.0) APTT (25.3-37.0) SECONDS Sodium (137-145) mmol/L Potassium 3.8 D (3.5-5.1) mmol/L Chloride (98-107) mmol/L Carbon Dioxide (22-30) mmol/L Anion Gap (5-15) MEQ/L BUN (7-17) mg/dL Creatinine (0.52-1.04) mg/dL Estimated GFR ML/MIN Glucose (74-106) mg/dL Hemoglobin A1c (4.5-6.0) % Calcium (8.4-10.2) mg/dL Total Bilirubin (0.2-1.3) mg/dL AST (14-36) U/L ALT (0-35) U/L Alkaline Phosphatase (38-126) U/L Troponin I (0.000-0.034) ng/mL Serum Total Protein (6.3-8.2) g/dL Albumin (3.5-5.0) g/dL Vitamin B12 (239-931) pg/mL TSH 3rd Generation (0.47-4.68) mIU/L Urine Color INDIO (YELLOW) Urine Appearance CLEAR (CLEAR) Urine pH 5.0 (5-6) Ur Specific [place] 1.029 (1.005-1.025) Urine Protein NEGATIVE (Negative) Urine Ketones NEGATIVE (NEGATIVE) Urine Blood NEGATIVE (0-5) Anibal/ul Urine Nitrite NEGATIVE (NEGATIVE) Urine Bilirubin NEGATIVE (NEGATIVE) Urine Urobilinogen 2 (0-1) mg/dL Ur Leukocyte Esterase NEGATIVE (NEGATIVE) Urine WBC (Auto) NONE (0-5) /HPF Urine RBC (Auto) 0-2 (0-2) /HPF U Epithel Cells (Auto) RARE (FEW) /HPF Urine Bacteria (Auto) NONE (NEGATIVE) /HPF Urine Mucus (Auto) SLIGHT (NEGATIVE) /HPF Urine Culture Reflexed NO (NO) Urine Glucose NEGATIVE (NEGATIVE) mg/dL Stool Occult Blood (Negative) Radiology Exams: Radiology Procedures Category Date Time Status ABDOMEN AND PELVIS W CONTRAST [CT] Stat Exams 01/06/20 16:34 Taken Assessment/Plan (1) GI bleed Status: Acute Qualifiers: GI bleed type/associated pathology: unspecified gastrointestinal hemorrhage type Qualified Code(s): K92.2 - Gastrointestinal hemorrhage, unspecified Assessment & Plan: bright red blood /lower GI bleed Code(s): K92.2 - GASTROINTESTINAL HEMORRHAGE, UNSPECIFIED (2) Chronic constipation Status: Chronic Assessment & Plan: required manual disimpaction by Dr Hampton Code(s): K59.09 - OTHER CONSTIPATION (3) Impaction of colon Status: Acute Code(s): K56.49 - OTHER IMPACTION OF INTESTINE (4) Presence of stent in coronary artery in patient with coronary artery disease Status: Chronic Assessment & Plan: approx 1 month prior to this admit Code(s): I25.10 - ATHSCL HEART DISEASE OF [place] CORONARY ARTERY W/O ANG PCTRS; Z95.5 - PRESENCE OF CORONARY ANGIOPLASTY IMPLANT AND GRAFT
[2020-01-07] MEDS ORDERED: CITROMA 296 ML PO ONE (17:00)
[2020-01-07] MEDS ORDERED: PROTONIX 40 MG IV IV SCH (20:00)
[2020-01-07] MEDS: Zofran 4 MG/2 ML VIAL IV PRN (21:09)
[2020-01-07] MEDS ORDERED: Toprol-Xl 25MG Tablets PO SCH (22:00)
--- NOTE | 2020-01-08 00:04 | XRAY ---
Exam: CT of the abdomen and pelvis with IV contrast from 01/06/2020. CTDI: 5.96 mGy Comparison: CT of the abdomen and pelvis with IV contrast from 12/23/2019. Indication: 84-year-old female with acute onset of abdominal pain and rectal bleeding. The patient has a history of prior cholecystectomy, appendectomy, and hysterectomy. Technique: Post-IV contrast axial images were obtained through the abdomen and pelvis with IV contrast. It is estimated that approximately 50 ML's of IV contrast was injected before the IV line infiltrated. Because of this, the images are mildly delayed. Findings: There has been a mild decrease in the previously noted bilateral moderate-sized posterior pleural effusions as compared to 12/23/2019. In addition, compression atelectasis adjacent to the anterior margin of the each pleural effusion has mildly decreased. The liver appears of unremarkable size. A stable hepatic cyst measuring about 3.6 cm in diameter is seen measuring +5.8 Hounsfield units. There is evidence of prior cholecystectomy. Increased intrahepatic and extrahepatic pneumobilia is seen, possibly due to sphincterotomy or patent biliary sphincter. No other abnormality of the liver is seen. The spleen is of normal size and reveals no mass. Some granulomatous calcifications are seen. The pancreas appears of unremarkable size and reveals no mass, calcifications, or ductal distention. The adrenal glands appear within normal limits. Both kidneys function. I again see a 3.6 cm in diameter cyst abutting the lateral margin of the right kidney representing no change. Incidentally, some excreted contrast within an apparent blunted calyx extends towards the lateral cortical margin of the right kidney on coronal image #80. Abundant fluid/debris is seen within the stomach lumen. The small bowel is not distended. Abundant solid and liquid stool is seen throughout the colon. I see no evidence of appendicitis within the right lower quadrant. The patient has a history of prior appendectomy. Moderate sigmoid colon diverticulosis without evidence of acute diverticulitis is again seen. There is no free intraperitoneal air. The anterior abdominal wall appears intact. Atherosclerotic vascular calcification is seen within the abdominal aorta and iliac arteries. No abdominal aortic aneurysm or abnormal retroperitoneal lymphadenopathy is seen. The opacified urinary bladder appears unremarkable. The uterus is surgically absent. No enlarged pelvic lymph nodes or free intraperitoneal fluid is seen. The deep pelvic sidewalls appear unremarkable. 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 I see no acute fracture or aggressive bone lesion. There are some changes within the posterior aspect of the lower lumbar spine which may possibly be due to prior surgical bone fusion with left iliac bone harvesting. Some chronic deformity is seen at the medial aspect of the left iliac bone. Correlate with surgical history. Impression: 1. There has been a slight decrease in the prior moderate sized posterior dependent bilateral pleural effusions. I believe associated dependent atelectasis at both lung bases is slightly decreased as well. 2. Stable sigmoid colon diverticulosis without evidence of acute diverticulitis. 3. Abundant liquid and solid stool is seen throughout the colon. I see no evidence of bowel obstruction. There is also abundant fluid/secretions within the stomach lumen. No findings of acute bowel obstruction are seen. No free air or free fluid is seen. 4. Other findings consisting of a hepatic cyst, pneumobilia, prior cholecystectomy, and right renal cyst remain unchanged. Extensive atherosclerotic vascular calcification is seen. 5. No other acute process is seen within the abdomen or pelvis.
[2020-01-08 08:41] LABS: Hematocrit 38.7 % (35-47); Hemoglobin 12.4 gm/dl (12.0-16.0); Mean Cell Volume 98.7 fl (78-100); Mean Corpuscular Hemoglobin 31.6 pg (26-32); Mean Platelet Volume 11.5 fl (7.5-11.0); Red Blood Count 3.92 M/mm3 (4.1-5.4); Red Cell Distribution Width 14.3 % (11.5-14.0); White Blood Count 16.4 K/mm3 (4.0-10.5)
[2020-01-08 08:53] LABS: Platelet Count 212 K/mm3 (150-450)
[2020-01-08 09:32] LABS: ALBUMIN 3.5 g/dL (3.5-5.0); ALKALINE PHOSPHATASE 59 U/L (38-126); ANION GAP 12.9 MEQ/L (5-15); BLOOD UREA NITROGEN 15 mg/dL (7-17); CHLORIDE 98 mmol/L (98-107); Calcium 8.4 mg/dL (8.4-10.2); Carbon Dioxide 29 mmol/L (22-30); Creatinine 1 0.75 mg/dL (0.52-1.04); Glucose 163 mg/dL (74-106); Potassium 3.9 mmol/L (3.5-5.1); SGOT/AST 28 U/L (14-36); SGPT/ALT 16 U/L (0-35); SODIUM 137 mmol/L (137-145); Total Protein 6.4 g/dL (6.3-8.2)
[2020-01-08] MEDS: Klor Con 10 MEQ PO SCH (09:49)
[2020-01-08] MEDS: Pepcid 20 MG PO SCH (09:49)
[2020-01-08] MEDS: Cordarone 200 MG PO SCH (09:49)
[2020-01-08] MEDS: Toprol-Xl 25MG Tablets PO SCH (09:49)
[2020-01-08] MEDS: ZOCOR 20MG PO SCH (09:49)
[2020-01-08] MEDS: LASIX 20 MG PO SCH (09:50)
[2020-01-08] MEDS: Levofloxacin 500MG/100ML D5W 500 MG/100 ML BAG IV SCH (09:50)
[2020-01-08] MEDS ORDERED: Miralax Powder 17GM PACKET PO SCH (10:00)
[2020-01-08 11:48] VITALS: O2SAT 95
--- NOTE | 2020-01-08 14:21 | PCM.SSS ---
History of Present Illness - Chief Complaint Chief Complaint: GI Bleed History of Present Illness: is a 84 year old female who presented to ER with abdominal pain and Hx red blood in stool following BM x 2 the day of admission. - Review of Systems Constitutional: Chills, Weakness Eyes: No Symptoms Ears, Nose, & Throat: No Symptoms Respiratory: No Symptoms Cardiac: No Symptoms, Other (recent stents) Abdominal/Gastrointestinal: Abdominal Pain, Hematochezia Genitourinary Symptoms: No Symptoms Skin: No Symptoms Neurological: No Symptoms Medications & Allergies Home Medications: Home Medication List Potassium Chloride [Klor-Con M10] 20 meq PO DAILY 10/30/19 [History Confirmed 01/06/20] Amiodarone HCl 200 mg [Cordarone 200 MG] 200 mg PO DAILY 01/06/20 [History Confirmed 01/06/20] Aspirin [Aspirin EC] 81 mg PO DAILY 01/06/20 [History Confirmed 01/06/20] Atorvastatin Calcium 80 mg PO DAILY 01/06/20 [History Confirmed 01/06/20] Clopidogrel Bisulfate [Clopidogrel] 75 mg PO DAILY 01/06/20 [History Confirmed 01/06/20] Famotidine 20 mg [Pepcid 20 MG] 40 mg PO DAILY 01/06/20 [History Confirmed 01/06/20] Furosemide 20 mg [Lasix 20 mg] 20 mg PO BID 01/06/20 [History Confirmed 01/06/20] Metoprolol Succinate [Toprol Xl] 12.5 mg PO HS 01/06/20 [History Confirmed 01/06/20] Allergies/Adverse Reactions: Allergies Allergy/AdvReac Type Severity Reaction Status Date / Time meperidine [From Demerol] Allergy Intermediate Vomiting Verified 02/03/20 09:55 cefaclor [From Ceclor] AdvReac Vomiting Verified 02/03/20 09:55 Penicillins AdvReac shakes Verified 02/03/20 09:55 - Past Medical History Past Medical History: Yes Neurological History: No Pertinent History ENT History: No Pertinent History Cardiac History: High Cholesterol, Hypertension, Myocardial Infarction (PR) Respiratory History: No Pertinent History Endocrine Medical History: No Pertinent History Musculoskelatal History: No Pertinent History GI Medical History: Gallbladder Disease History: No Pertinent History Pyscho-Social History: No Pertinent History Reproductive Disorders: No Pertinent History Comment: recent stemi and recent chf - Female History Are you now?: No - Past Surgical History Past Surgical History: Yes Neuro Surgical History: No Pertinent History Cardiac History: No Pertinent History Respiratory Surgery: No Pertinent History GI Surgical History: Appendectomy, Cholecystectomy Genitourinary Surgical Hx: No Pertinent History Musculskeletal Surgical Hx: Orthopedic Surgery Female Surgical History: Hysterectomy Other Surgical History: Lamenectomy, Rotator Cuff-Left, Back Surgery, cystocele. cardiac stents - Social History Smoking Status: Never smoker Exposure to second hand smoke: No Alcohol: None Drug Use: none Significant Family History: no pertinent family hx - Physical Exam Vital Signs: Vital Signs - 24 hr Temp Pulse Resp BP Pulse Ox 01/08/20 12:13 80 01/08/20 11:45 80 20 98/60 95 01/08/20 10:00 96 01/08/20 08:00 86 01/08/20 07:58 91 L 01/08/20 07:02 98.1 F 86 20 96/54 93 L 01/08/20 04:00 98.2 F 83 19 109/53 97 01/08/20 03:29 78 01/08/20 00:01 78 01/08/20 00:00 98.1 F 81 22 103/43 97 01/07/20 20:00 98.3 F 78 22 100/41 96 01/07/20 18:35 98 01/07/20 16:00 98.2 F 82 16 107/50 99 General Appearance: no apparent distress, other (abd pain resolved since disimpacted) Neurologic Exam: alert, oriented x 3, cooperative, normal mood/affect, other (no focal neuro defecits) Eye Exam: eyes nml inspection Ears, Nose, Throat Exam: normal ENT inspection Neck Exam: normal inspection Respiratory Exam: normal breath sounds, lungs clear Cardiovascular Exam: regular rate/rhythm Gastrointestinal/Abdomen Exam: soft, tenderness (mid left abd no guarding) Pelvic Exam: not done Rectal Exam: other (present with Gen Surgeon Dr Yared Hampton rectal exam and disimaction of bowel yesterday) Back Exam: other (no CVA tenderness) Extremity Exam: normal inspection Skin Exam: normal color, warm, dry Results - Labs Lab/Micro Results: Lab Results-Last 24 Hours 01/08/20 01/08/20 Range/Units 08:20 09:00 WBC 16.4 H (4.0-10.5) K/mm3 RBC 3.92 L (4.1-5.4) M/mm3 Hgb 12.4 (12.0-16.0) gm/dl Hct 38.7 (35-47) % MCV 98.7 (78-100) fl MCH 31.6 (26-32) pg MCHC 32.0 (32-36) g/dl RDW 14.3 H (11.5-14.0) % Plt Count 212 (150-450) K/mm3 MPV 11.5 H (7.5-11.0) fl Sodium 137 (137-145) mmol/L Potassium 3.9 (3.5-5.1) mmol/L Chloride 98 (98-107) mmol/L Carbon Dioxide 29 (22-30) mmol/L Anion Gap 12.9 (5-15) MEQ/L BUN 15 (7-17) mg/dL Creatinine 0.75 (0.52-1.04) mg/dL Estimated GFR > 60.0 ML/MIN Glucose 163 H (74-106) mg/dL Calcium 8.4 (8.4-10.2) mg/dL Total Bilirubin 0.90 (0.2-1.3) mg/dL AST 28 (14-36) U/L ALT 16 (0-35) U/L Alkaline Phosphatase 59 (38-126) U/L Serum Total Protein 6.4 (6.3-8.2) g/dL Albumin 3.5 (3.5-5.0) g/dL - Radiology Impressions Radiology Exams & Impressions: Radiology Procedures Category Date Time Status ABDOMEN AND PELVIS W CONTRAST [CT] Stat Exams 01/06/20 16:34 Completed Assessment/Plan (1) GI bleed Status: Resolved Qualifiers: GI bleed type/associated pathology: anorectal hemorrhage Qualified Code(s): K62.5 - Hemorrhage of anus and rectum Assessment & Plan: Stable ,no further rectal bleeding, no colonoscopy at this time due to recent PR and stents,Dr Yared Hampton following as outpatient. Code(s): K92.2 - GASTROINTESTINAL HEMORRHAGE, UNSPECIFIED (2) Chronic constipation Status: Chronic Assessment & Plan: bowel program Code(s): K59.09 - OTHER CONSTIPATION (3) Impaction of colon Status: Resolved Assessment & Plan: bowel disimpaction by Dr Yared Hampton with relief of abd pain. Code(s): K56.49 - OTHER IMPACTION OF INTESTINE (4) Presence of stent in coronary artery in patient with coronary artery disease Status: Chronic Assessment & Plan: stable,approx 30 days since PR Code(s): I25.10 - ATHSCL HEART DISEASE OF [place] CORONARY ARTERY W/O ANG PCTRS; Z95.5 - PRESENCE OF CORONARY ANGIOPLASTY IMPLANT AND GRAFT Hospital Summary - Hospital Course Hospital Course: Patient was admitted with lower GI bleed ,Hgb stable at 12. Recent stent for CAD so no colonoscopy at this time. Bowel was impacted and after dissimpaction by Dr Yared Hampton at bedside ,patient had relief of abd pain . She did not have further LGI bleed and was dicharged home to follow with PCP and DR Hampton. - Vitals & Intake/Output Vital Signs: Vital Signs Temperature 98.1 F 01/08/20 07:02 Pulse Rate 80 01/08/20 12:13 Respiratory Rate 01/08/20 11:45 Blood Pressure 98/60 01/08/20 11:45 O2 Sat by Pulse Oximetry 95 01/08/20 11:45 Intake & Output: Intake & Output 01/06/20 01/07/20 01/08/20 01/09/20 11:59 11:59 11:59 11:59 Intake Total 0 1491 Output Total 600 760 Balance -600 731 Weight 64.864 kg - Lab Result Diagrams: 01/08/20 08:20 01/08/20 09:00 Lab Results-Last 24 Hrs: Lab Results-Last 24 Hours 01/08/20 01/08/20 Range/Units 08:20 09:00 WBC 16.4 H (4.0-10.5) K/mm3 RBC 3.92 L (4.1-5.4) M/mm3 Hgb 12.4 (12.0-16.0) gm/dl Hct 38.7 (35-47) % MCV 98.7 (78-100) fl MCH 31.6 (26-32) pg MCHC 32.0 (32-36) g/dl RDW 14.3 H (11.5-14.0) % Plt Count 212 (150-450) K/mm3 MPV 11.5 H (7.5-11.0) fl Sodium 137 (137-145) mmol/L Potassium 3.9 (3.5-5.1) mmol/L Chloride 98 (98-107) mmol/L Carbon Dioxide 29 (22-30) mmol/L Anion Gap 12.9 (5-15) MEQ/L BUN 15 (7-17) mg/dL Creatinine 0.75 (0.52-1.04) mg/dL Estimated GFR > 60.0 ML/MIN Glucose 163 H (74-106) mg/dL Calcium 8.4 (8.4-10.2) mg/dL Total Bilirubin 0.90 (0.2-1.3) mg/dL AST 28 (14-36) U/L ALT 16 (0-35) U/L Alkaline Phosphatase 59 (38-126) U/L Serum Total Protein 6.4 (6.3-8.2) g/dL Albumin 3.5 (3.5-5.0) g/dL - Radiology Exams Ordered Rad Exams-Entire Visit: Radiology Procedures Category Date Time Status ABDOMEN AND PELVIS W CONTRAST [CT] Stat Exams 01/06/20 16:34 Completed - Procedures and Test Procedures and Tests throughout Hospitalization: Therapy Orders & Screens 01/06/20 18:28 Respiratory Therapy Consult ONCE Comment: Reason For Exam: 01/06/20 20:42 Oxygen Nasal Cannula 2 lpm Comment: Diagnosis: GI Bleed - Discharge Disposition: Home, Self-Care Condition: Stable Prescriptions: Continue Potassium Chloride [Klor-Con M10] 20 meq PO DAILY Atorvastatin Calcium 80 mg PO DAILY Amiodarone HCl 200 mg [Cordarone 200 MG] 200 mg PO DAILY Famotidine 20 mg [Pepcid 20 MG] 40 mg PO DAILY Clopidogrel Bisulfate [Clopidogrel] 75 mg PO DAILY Aspirin [Aspirin EC] 81 mg PO DAILY Metoprolol Succinate [Toprol Xl] 12.5 mg PO HS Furosemide 20 mg [Lasix 20 mg] 20 mg PO BID Instructions: Gastrointestinal Bleeding (DC) Follow up with: SANTHOSH HAMPTON MD [ASSOCIATE STAFF] - Call for Appointment PAZ JORDAN [CONSULTING PHYSICIAN] - 1 Week (keep scheduled appt with nurse head) MARYBETH,JASON, MD [Primary Care Provider] - 1 Week Forms: Discharge Instructions
--- NOTE | 2020-01-08 14:25 | PCM.DCORD ---
- Discharge Disposition: Home, Self-Care Condition: Stable Prescriptions: Continue Potassium Chloride [Klor-Con M10] 20 meq PO DAILY Atorvastatin Calcium 80 mg PO DAILY Amiodarone HCl 200 mg [Cordarone 200 MG] 200 mg PO DAILY Famotidine 20 mg [Pepcid 20 MG] 40 mg PO DAILY Clopidogrel Bisulfate [Clopidogrel] 75 mg PO DAILY Aspirin [Aspirin EC] 81 mg PO DAILY Metoprolol Succinate [Toprol Xl] 12.5 mg PO HS Furosemide 20 mg [Lasix 20 mg] 20 mg PO BID Instructions: Gastrointestinal Bleeding (DC) Follow up with: SANTHOSH SQUIRES MD [ASSOCIATE STAFF] - Call for Appointment PAZ JORDAN [CONSULTING PHYSICIAN] - 1 Week (keep scheduled appt with locomotive supervisor) JASON RUEDA MD [Primary Care Provider] - 1 Week Forms: Discharge Instructions
[2020-01-08] MEDS ORDERED: PLAVIX 75 MG Tablet PO ONE (14:47)
[2020-01-08 15:33] VITALS: BP 85/50; PULSE 78
[2020-01-08 16:25] LABS: Amourphous Crystal MODERATE /HPF (NEGATIVE); Appearance CLOUDY (CLEAR); Bacteria RARE /HPF (NEGATIVE); Bilirubin NEGATIVE (NEGATIVE); Blood NEGATIVE Ery/ul (0-5); Epithelial Cells RARE /HPF (FEW); Glucose NEGATIVE (NEGATIVE); Hyaline Casts 0-2 /LPF (0-2); Ketones NEGATIVE (NEGATIVE); Leukocyte Esterase NEGATIVE (NEGATIVE); Mucus SLIGHT /HPF (NEGATIVE); Nitrite NEGATIVE (NEGATIVE); Protein,Urine Dip NEGATIVE (Negative); RBC 0-2 /HPF (0-2); Specific Gravity 1.015 (1.005-1.025); Urobilinogen 2 mg/dL (0-1)
== END 2020-01-08 15:20 | disposition home or self-care (01) ==
LOC: ED 15:33 → ICU 19:46
PROVIDERS: ADMIT Family Medicine; ATTEND Family Medicine
DX: K92.2 Gastrointestinal hemorrhage, unspecified (principal); K59.09 Other constipation; K56.49 Other impaction of intestine; I10 Essential (primary) hypertension; E78.00 Pure hypercholesterolemia, unspecified; I25.10 Atherosclerotic heart disease of native coronary artery without angina pectoris; Z95.5 Presence of coronary angioplasty implant and graft; I25.2 Old myocardial infarction; Z79.899 Other long term (current) drug therapy; Z79.82 Long term (current) use of aspirin
CPT/HCPCS: 36000; 36415; 74177; 80053; 81001; 82272; 82607; 83036; 84132; 84443; 84484; 85025; 85027; 85610; 85730; 93268; 96374; 96375; 96376; 99285; G0378; 94762; J1170; J1956; J2405; J3010; J3480; A9270-GY

== ENCOUNTER 2021-01-05 14:15 | Emergency (ER) | payer MEDICARE, OTHER ==
--- NOTE | 2021-01-05 14:21 | ERPHSYRPT ---
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 The abdominal pain was sharp and severe enough to double her over. Patient has a history of coronary artery disease and approximately 1 year ago underwent coronary artery stent placement. She has a history of CHF, hypertension, appendectomy and cholecystectomy. Patient is taking amiodarone, Lasix and is on Plavix. Patient's symptoms have nearly cleared at the time of her admission int o the emergency department. She currently denies chest pain. She denies shortness of breath. She has had no vomiting or diarrhea. Timing/Duration: today, improved Activities at Onset: none Quality: sharpness, stabbing Abdominal Pain Onset Location: RLQ, LLQ Pain Radiation: no radiation Severity of Pain-Max: moderate Severity of Pain-Current: none Modifying Factors: Improves With: nothing Associated Symptoms: diaphoresis, weakness, No chest pain, No fever/chills, No headache, No nausea, No shortness of breath, No vomiting Allergies/Adverse Reactions: meperidine [From Demerol] Allergy (Intermediate, Verified 01/05/21 14:37) Vomiting sulfamethoxazole [From Bactrim] Allergy (Verified 01/05/21 14:38) trimethoprim [From Bactrim] Allergy (Verified 01/05/21 14:38) cefaclor [From Ceclor] Adverse Reaction (Verified 01/05/21 14:37) Vomiting Penicillins Adverse Reaction (Verified 01/05/21 14:37) shakes Home Medications: Potassium Chloride [Klor-Con M10] 20 meq PO DAILY 10/30/19 [History] Amiodarone HCl 200 mg [Cordarone 200 MG] 200 mg PO 3XW 01/06/20 [History] Aspirin [Aspirin EC] 81 mg PO DAILY 01/06/20 [History] Atorvastatin Calcium 80 mg PO DAILY 01/06/20 [History] Clopidogrel Bisulfate [Clopidogrel] 75 mg PO DAILY 01/06/20 [History] Famotidine 20 mg [Pepcid 20 MG] 40 mg PO DAILY 01/06/20 [History] Furosemide 20 mg [Lasix 20 mg] 20 mg PO BID 01/06/20 [History] Metoprolol Succinate [Toprol Xl] 12.5 mg PO DAILY 01/06/20 [History] Hx Tetanus, Diphtheria Vaccination/Date Given: Yes Hx Influenza Vaccination/Date Given: Yes Hx Pneumococcal Vaccination/Date Given: Yes Travel Risk - International Travel Have you traveled outside of the country in past 3 weeks: No - Coronavirus Screening Are you exhibiting any of the following symptoms?: No Close contact with a COVID-19 positive Pt in past 14-21 Days: No - Review of Systems Constitutional: No Symptoms Eyes: No Symptoms Ears, Nose, & Throat: No Symptoms Respiratory: No Symptoms Cardiac: Syncope Abdominal/Gastrointestinal: Abdominal Pain Genitourinary Symptoms: No Symptoms Musculoskeletal: No Symptoms Skin: No Symptoms Neurological: No Symptoms Psychological: No Symptoms Endocrine: No Symptoms Hematologic/Lymphatic: No Symptoms Immunological/Allergic: No Symptoms All Other Systems: Reviewed and Negative - Past Medical History Pertinent Past Medical History: Yes Neurological History: No Pertinent History ENT History: No Pertinent History Cardiac History: High Cholesterol, Hypertension, Myocardial Infarction ([place]) Respiratory History: No Pertinent History Endocrine Medical History: No Pertinent History Musculoskeletal History: No Pertinent History GI Medical History: Gallbladder Disease History: No Pertinent History Psycho-Social History: No Pertinent History Female Reproductive Disorders: No Pertinent History Other Medical History: recent stemi and recent chf - Past Surgical History Past Surgical History: Yes Neuro Surgical History: No Pertinent History Cardiac: No Pertinent History Respiratory: No Pertinent History Gastrointestinal: Appendectomy, Cholecystectomy Genitourinary: No Pertinent History Musculoskeletal: Orthopedic Surgery Female Surgical History: Hysterectomy Other Surgical History: Lamenectomy, Rotator Cuff-Left, Back Surgery, cystocele. cardiac stents - Social History Smoking Status: Never smoker Exposure to second hand smoke: No Alcohol Use: None Drug Use: none Patient Lives Alone: Yes Significant Family History: no pertinent family hx - Nursing Vital Signs Nursing Vital Signs: Initial Vital Signs Temperature 98.3 F 01/05/21 14:21 Pulse Rate 73 01/05/21 14:21 Respiratory Rate 23 01/05/21 14:21 Blood Pressure 121/48 01/05/21 14:21 O2 Sat by Pulse Oximetry 96 01/05/21 14:21 Pain Scale Pain Intensity 5 - Physical Exam General Appearance: no apparent distress, alert, anxiety Eye Exam: PERRL/EOMI, eyes nml inspection Ears, Nose, Throat Exam: normal ENT inspection, moist mucous membranes Neck Exam: normal inspection, non-tender, supple, full range of motion Respiratory Exam: normal breath sounds, lungs clear, airway intact, No chest tenderness, No respiratory distress Cardiovascular Exam: regular rate/rhythm, normal heart sounds, normal peripheral pulses Gastrointestinal/Abdomen Exam: soft, normal bowel sounds, No tenderness Pelvic Exam: not done Rectal Exam: not done Back Exam: normal inspection, normal range of motion, No CVA tenderness, No vertebral tenderness Extremity Exam: normal inspection, normal range of motion, pelvis stable Neurologic Exam: alert, oriented x 3, cooperative, 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 Comparison EKG 12/23/2019 there is persistent sinus rhythm. 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 On today's EKG there is a prolonged QT interval. I do not appreciate any other changes on today's EKG.) Ordered Tests: Active Orders 24 hr Category Date Time Status EKG-ER Only STAT Care 01/05/21 14:42 Active Enema STAT Care 01/05/21 16:26 Ordered IV Insertion STAT Care 01/05/21 14:42 Active ABDOMEN AND PELVIS W/0 CONTRAS [CT] Stat Exams 01/05/21 15:01 Completed HEAD WITHOUT CONTRAST [CT] Stat Exams 01/05/21 14:58 Completed AMYLASE Stat Lab 01/05/21 15:17 Completed CBC W DIFF Stat Lab 01/05/21 15:17 Completed CMP Stat Lab 01/05/21 15:17 Completed LIPASE Stat Lab 01/05/21 15:17 Completed Lactic Acid Stat Lab 01/05/21 14:42 Completed TROPONIN Q3H Lab 01/05/21 15:17 Completed TROPONIN Q3H Lab 01/05/21 17:45 Ordered TROPONIN Q3H Lab 01/05/21 20:45 Ordered TROPONIN Q3H Lab 01/05/21 23:45 Ordered TROPONIN Q3H Lab 01/06/21 02:45 Ordered UA W/RFX UR CULTURE Stat Lab 01/05/21 14:43 Completed Medication Summary Discontinued Medications Generic Name Dose Route Start Last Admin Trade Name Freq PRN Reason Stop Dose Admin Ondansetron HCl 4 mg 01/05/21 14:42 Zofran 4 Mg/2 Ml Vial IV 01/05/21 14:43 STAT ONE Ondansetron HCl Confirm 01/05/21 15:13 Zofran 4 Mg/2 Ml Vial Administered 01/05/21 15:14 Dose 4 mg .ROUTE .STK-MED ONE Lab/Rad Data: Laboratory Result Diagrams 01/05/21 15:17 01/05/21 15:17 Laboratory Results 01/05/21 01/05/21 01/05/21 Range/Units 15:17 15:17 15:17 WBC 6.8 (4.0-10.5) K/mm3 RBC 4.72 (4.1-5.4) M/mm3 Hgb 15.0 (12.0-16.0) gm/dl Hct 45.7 (35-47) % MCV 96.8 (78-100) fl MCH 31.8 (26-32) pg MCHC 32.8 (32-36) g/dl RDW 13.8 (11.5-14.0) % Plt Count 219 (150-450) K/mm3 MPV 11.4 H (7.5-11.0) fl Gran % 69.1 H (36.0-66.0) % Eos # (Auto) 0.07 (0-0.5) Absolute Lymphs (auto) 1.59 (1.0-4.6) Absolute Monos (auto) 0.40 (0.0-1.3) Lymphocytes % 23.6 L (24.0-44.0) % Monocytes % 5.9 (0.0-12.0) % Eosinophils % 1.0 (0.00-5.0) % Basophils % 0.4 (0.0-0.4) % Absolute Granulocytes 4.66 (1.4-6.9) Basophils # 0.03 (0-0.4) Sodium 137 (137-145) mmol/L Potassium 3.9 (3.5-5.1) mmol/L Chloride 101 (98-107) mmol/L Carbon Dioxide 27 (22-30) mmol/L Anion Gap 12.5 (5-15) MEQ/L BUN 25 H (7-17) mg/dL Creatinine 1.14 H (0.52-1.04) mg/dL Estimated GFR 48.3 ML/MIN Glucose 131 H (74-106) mg/dL Lactic Acid (0.4-2.0) Calcium 8.9 (8.4-10.2) mg/dL Total Bilirubin 0.40 (0.2-1.3) mg/dL AST 24 (14-36) U/L ALT 16 (0-35) U/L Alkaline Phosphatase 93 (38-126) U/L Troponin I < 0.012 (0.000-0.034) ng/mL Serum Total Protein 6.5 (6.3-8.2) g/dL Albumin 4.0 (3.5-5.0) g/dL Amylase 129 H (30-110) U/L Lipase 100 (23-300) U/L Urine Color (YELLOW) Urine Appearance (CLEAR) Urine pH (5-6) Ur Specific [place] (1.005-1.025) Urine Protein (Negative) Urine Ketones (NEGATIVE) Urine Blood (0-5) Anibal/ul Urine Nitrite (NEGATIVE) Urine Bilirubin (NEGATIVE) Urine Urobilinogen (0-1) mg/dL Ur Leukocyte Esterase (NEGATIVE) Urine WBC (Auto) (0-5) /HPF Urine RBC (Auto) (0-2) /HPF U Hyaline Cast (Auto) (0-2) /LPF U Epithel Cells (Auto) (FEW) /HPF Urine Bacteria (Auto) (NEGATIVE) /HPF Urine Mucus (Auto) (NEGATIVE) /HPF Urine Culture Reflexed (NO) Urine Glucose (NEGATIVE) mg/dL 01/05/21 01/05/21 Range/Units 14:43 14:42 WBC (4.0-10.5) K/mm3 RBC (4.1-5.4) M/mm3 Hgb (12.0-16.0) gm/dl Hct (35-47) % MCV (78-100) fl MCH (26-32) pg MCHC (32-36) g/dl RDW (11.5-14.0) % Plt Count (150-450) K/mm3 MPV (7.5-11.0) fl Gran % (36.0-66.0) % Eos # (Auto) (0-0.5) Absolute Lymphs (auto) (1.0-4.6) Absolute Monos (auto) (0.0-1.3) Lymphocytes % (24.0-44.0) % Monocytes % (0.0-12.0) % Eosinophils % (0.00-5.0) % Basophils % (0.0-0.4) % Absolute Granulocytes (1.4-6.9) Basophils # (0-0.4) Sodium (137-145) mmol/L Potassium (3.5-5.1) mmol/L Chloride (98-107) mmol/L Carbon Dioxide (22-30) mmol/L Anion Gap (5-15) MEQ/L BUN (7-17) mg/dL Creatinine (0.52-1.04) mg/dL Estimated GFR ML/MIN Glucose (74-106) mg/dL Lactic Acid 1.5 (0.4-2.0) Calcium (8.4-10.2) mg/dL Total Bilirubin (0.2-1.3) mg/dL AST (14-36) U/L ALT (0-35) U/L Alkaline Phosphatase (38-126) U/L Troponin I (0.000-0.034) ng/mL Serum Total Protein (6.3-8.2) g/dL Albumin (3.5-5.0) g/dL Amylase (30-110) U/L Lipase (23-300) U/L Urine Color YELLOW (YELLOW) Urine Appearance CLEAR (CLEAR) Urine pH 6.0 (5-6) Ur Specific [place] 1.014 (1.005-1.025) Urine Protein NEGATIVE (Negative) Urine Ketones NEGATIVE (NEGATIVE) Urine Blood NEGATIVE (0-5) Anibal/ul Urine Nitrite NEGATIVE (NEGATIVE) Urine Bilirubin NEGATIVE (NEGATIVE) Urine Urobilinogen NEGATIVE (0-1) mg/dL Ur Leukocyte Esterase NEGATIVE (NEGATIVE) Urine WBC (Auto) NONE (0-5) /HPF Urine RBC (Auto) 0-2 (0-2) /HPF U Hyaline Cast (Auto) 6-10 (0-2) /LPF U Epithel Cells (Auto) RARE (FEW) /HPF Urine Bacteria (Auto) NONE (NEGATIVE) /HPF Urine Mucus (Auto) SLIGHT (NEGATIVE) /HPF Urine Culture Reflexed NO (NO) Urine Glucose NEGATIVE (NEGATIVE) mg/dL - Progress Progress: improved, pain not gone completely, re-examined Progress Note: 01/05/21 16:27 CAT scan of the abdomen and pelvis without contrast shows mild rectal impaction and diffuse fecal stasis. CAT scan of the head without contrast shows no acute intracranial abnormalities. Counseled pt/family regarding: lab results, diagnosis, need for follow-up, rad results - Departure Departure Disposition: Home Clinical Impression: Constipation, Syncope, near Condition: Stable Critical Care Time: No Referrals: JASON RUEDA MD [Primary Care Provider] - Additional Instructions: When you get home, drink a full bottle of magnesium citrate rapidly. Approximately 45 minutes to an hour after drinking the magnesium citrate, give yourself a fleets enema rectally. Follow-up with your primary care physician tomorrow for further management and bowel hygiene instructions.
[2021-01-05] MEDS ORDERED: Zofran 4 MG/2 ML VIAL IV ONE (14:42)
[2021-01-05] MEDS ORDERED: Zofran 4 MG/2 ML VIAL ONE (15:13)
[2021-01-05 15:21] LABS: Absolute Neutrophil Ct (ANC) 4.66 (1.4-6.9); BASOPHIL % 0.4 % (0.0-0.4); Basophil (Absolute #) 0.03 (0-0.4); Eosinophil (Absolute #) 0.07 (0-0.5); Hematocrit 45.7 % (35-47); Lymphocyte (Absolute #) 1.59 (1.0-4.6); Lymphocytes % 23.6 % (24.0-44.0); Mean Cell Volume 96.8 fl (78-100); Mean Corpuscular Hemoglobin 31.8 pg (26-32); Mean Corpuscular Hgb Concent. 32.8 g/dl (32-36); Mean Platelet Volume 11.4 fl (7.5-11.0); Monocytes % 5.9 % (0.0-12.0); Neutrophil % 69.1 % (36.0-66.0); Platelet Count 219 K/mm3 (150-450); Red Blood Count 4.72 M/mm3 (4.1-5.4); Red Cell Distribution Width 13.8 % (11.5-14.0); White Blood Count 6.8 K/mm3 (4.0-10.5)
--- NOTE | 2021-01-05 15:29 | XRAY ---
Indication: Syncope. Multiple contiguous images obtained through the head without contrast. Comparison: None Age-appropriate global atrophy. No acute intracranial hemorrhage, abnormal extra-axial fluid collection, or mass effect. Fourth ventricle is midline without hydrocephalus. Barrientos-white matter differentiation preserved. Bony calvarium intact. Visualized paranasal sinuses and mastoid air cells are clear. Impression: Normal aging brain. No acute intracranial abnormalities.
--- NOTE | 2021-01-05 15:30 | XRAY ---
Indication: Upper abdomen pain. Multiple contiguous images obtained through the abdomen and pelvis without contrast. Comparison: January 06, 2020. Lung bases are now clear. Heart not enlarged. Stable small hiatal hernia. Stomach is again distended with food/fluid. Noncontrasted stomach and bowel loops nonobstructed. Again moderate diffuse scattered colonic fecal debris with mild rectal impaction. Stable sigmoid diverticulosis, hepatic cyst, right renal exophytic cyst, cholecystectomy, pneumobilia, hysterectomy, and splenic calcified granuloma. Remaining liver, pancreas, spleen, adrenal glands, kidneys, ureters, and bladder are unremarkable for noncontrast exam. There remains mild scattered aortoiliac calcifications without AAA. Osseous structures intact again with osteopenia, old left innominate bone fracture, and degenerative changes throughout the thoracolumbar spine, both hips, and pubis symphysis. Impression: 1. Again diffuse fecal stasis with mild rectal impaction. 2. Stable small hiatal hernia, sigmoid diverticulosis, hepatic/right renal cysts, pneumobilia, and chronic bony findings.
[2021-01-05 15:36] LABS: Appearance CLEAR (CLEAR); Bilirubin NEGATIVE (NEGATIVE); Blood NEGATIVE Ery/ul (0-5); Epithelial Cells RARE /HPF (FEW); Glucose NEGATIVE (NEGATIVE); Ketones NEGATIVE (NEGATIVE); Leukocyte Esterase NEGATIVE (NEGATIVE); Mucus SLIGHT /HPF (NEGATIVE); Nitrite NEGATIVE (NEGATIVE); Protein,Urine Dip NEGATIVE (Negative); RBC 0-2 /HPF (0-2); Specific Gravity 1.014 (1.005-1.025); Urobilinogen NEGATIVE mg/dL (0-1)
[2021-01-05 16:06] VITALS: BP 117/55; PULSE 58; O2SAT 96
[2021-01-05 16:16] LABS: ANION GAP 12.5 MEQ/L (5-15); BILIRUBIN,TOTAL 0.4 mg/dL (0.2-1.3); Calcium 8.9 mg/dL (8.4-10.2); Creatinine 1 1.14 mg/dL (0.52-1.04); EST GLOMERULAR FILTRATION RATE 48.3 ML/MIN; Potassium 3.9 mmol/L (3.5-5.1); Total Protein 6.5 g/dL (6.3-8.2)
[2021-01-05] MEDS ORDERED: CITROMA 296 ML PO ONE (16:25)
[2021-01-05] MEDS ORDERED: CITROMA 296 ML ONE (16:27)
== END 2021-01-05 17:02 | disposition home or self-care (01) ==
LOC: ED 14:15
DX: K59.00 Constipation, unspecified (principal); R55 Syncope and collapse
CPT/HCPCS: 36000; 36415; 70450; 74176; 80053; 81001; 82150; 83605; 83690; 84484; 85025; 93005; 99284; J2405; A9270-GY

== ENCOUNTER 2023-01-04 13:33 | Emergency (ER) | payer MEDICARE, OTHER ==
--- NOTE | 2023-01-04 13:34 | ERPHSYRPT ---
- History of Present Illness Time Seen by Provider: 01/04/23 13:34 Source: patient, EMS Exam Limitations: no limitations Physician History: This is an 87-year-old white female patient of Dr. Rueda and vector control assistant Dr. Ailyn Hancock who presents via EMS after the ambulance service was called because of patient standing up after using the bathroom followed by a syncopal episode hitting her head and neck. Patient crawled to the phone and called her family and the family contacted the ambulance service. Patient arrives with a cervical collar in place. She is awake alert and oriented and moving all her extremities. She has no visual complaints. She has no pain anywhere other than her head and mild pain in the posterior neck midline. She is not short of breath. She denies chest pain. She has no abdominal pain. Patient has a history of coronary artery disease and has cardiac stent in place. She is on Eliquis. She also has a history of hyperlipidemia, CHF, hypertension, and is taking amiodarone. Timing/Duration: today Severity: mild Character of Deficits: none Deficits: no difficulties Baseline/Normal Cognition: alert oriented x 3 Current Cognition: alert oriented x 3 Baseline Gait: walks w/o assistance Associated Symptoms: headache, No loss of consciousness, No vision changes Allergies/Adverse Reactions: meperidine [From Demerol] Allergy (Intermediate, Verified 01/05/21 14:37) Vomiting sulfamethoxazole [From Bactrim] Allergy (Verified 01/05/21 14:38) trimethoprim [From Bactrim] Allergy (Verified 01/05/21 14:38) cefaclor [From Ceclor] Adverse Reaction (Verified 01/05/21 14:37) Vomiting Penicillins Adverse Reaction (Verified 01/05/21 14:37) shakes Home Medications: Potassium Chloride [Klor-Con M10] 20 meq PO DAILY 10/30/19 [History] Amiodarone HCl 200 mg [Cordarone 200 MG] 200 mg PO 3XW 01/06/20 [History] Aspirin [Aspirin EC] 81 mg PO DAILY 01/06/20 [History] Atorvastatin Calcium 80 mg PO DAILY 01/06/20 [History] Famotidine 20 mg [Pepcid 20 MG] 40 mg PO DAILY 01/06/20 [History] Furosemide 20 mg [Lasix 20 mg] 20 mg PO BID 01/06/20 [History] Metoprolol Succinate [Toprol Xl] 12.5 mg PO DAILY 01/06/20 [History] Apixaban [Eliquis] 1 tab PO DAILY 01/04/23 [History] Hx Tetanus, Diphtheria Vaccination/Date Given: Yes Hx Influenza Vaccination/Date Given: Yes Hx Pneumococcal Vaccination/Date Given: Yes Travel Risk - International Travel Have you traveled outside of the country in past 3 weeks: No - Coronavirus Screening Are you exhibiting any of the following symptoms?: No Close contact with a COVID-19 positive Pt in past 14-21 Days: No - Vaccine Status Have you recieved a Covid-19 vaccination: Yes Digital Technician: Status Overloada - Vaccination Dates Date of 2cond Vaccination (if applicable): - Review of Systems Constitutional: No Symptoms Eyes: No Symptoms Ears, Nose, & Throat: No Symptoms Respiratory: No Symptoms Cardiac: No Symptoms Abdominal/Gastrointestinal: No Symptoms Genitourinary Symptoms: No Symptoms Musculoskeletal: Neck Pain (Mild midline. Cervical collar in place) Skin: No Symptoms Neurological: Other (Syncopal episode upon standing up quickly after using the bathroom) Psychological: No Symptoms Endocrine: No Symptoms Hematologic/Lymphatic: No Symptoms Immunological/Allergic: No Symptoms All Other Systems: Reviewed and Negative - Past Medical History Pertinent Past Medical History: Yes Neurological History: No Pertinent History ENT History: No Pertinent History Cardiac History: High Cholesterol, Hypertension, Myocardial Infarction ([place]) Respiratory History: No Pertinent History Endocrine Medical History: No Pertinent History Musculoskeletal History: No Pertinent History GI Medical History: Gallbladder Disease History: No Pertinent History Psycho-Social History: No Pertinent History Female Reproductive Disorders: No Pertinent History Other Medical History: recent stemi and recent chf - Past Surgical History Past Surgical History: Yes Neuro Surgical History: No Pertinent History Cardiac: No Pertinent History Respiratory: No Pertinent History Gastrointestinal: Appendectomy, Cholecystectomy Genitourinary: No Pertinent History Musculoskeletal: Orthopedic Surgery Female Surgical History: Hysterectomy Other Surgical History: Lamenectomy, Rotator Cuff-Left, Back Surgery, cystocele. cardiac stents - Social History Smoking Status: Never smoker Exposure to second hand smoke: No Alcohol Use: None Drug Use: none Patient Lives Alone: Yes Significant Family History: no pertinent family hx - Nursing Vital Signs Nursing Vital Signs: Initial Vital Signs Temperature 97.2 F 01/04/23 13:35 Pulse Rate 68 01/04/23 13:35 Respiratory Rate 20 01/04/23 13:35 Blood Pressure 121/59 01/04/23 13:35 O2 Sat by Pulse Oximetry 99 01/04/23 13:35 Pain Scale Pain Intensity 4 - Reed Coma Scale Best Eye Response (Licha): (4) open spontaneously Best Verbal Response (Reed): (5) oriented Best Motor Response (Licah): (6) obeys commands Licha Total: 15 - Physical Exam General Appearance: no apparent distress, alert, anxiety Eye Exam: bilateral eye: normal inspection, PERRL, EOMI Ears, Nose, Throat Exam: normal ENT inspection, moist mucous membranes Neck Exam: normal inspection (On palpation and visual inspection around the cervical collar), other (Cervical collar in place) Respiratory: normal breath sounds, lungs clear, airway intact, No chest tenderness, No respiratory distress Cardiovascular: regular rate/rhythm, normal heart sounds, normal peripheral pulses Gastrointestinal: soft, normal bowel sounds, No tenderness Pelvic Exam: not done Rectal Exam: not done Back Exam: normal inspection, normal range of motion, No CVA tenderness, No vertebral tenderness Extremity Exam: normal inspection, normal range of motion, pelvis stable Mental Status: alert, oriented x 3, cooperative energy control officer Exam: normal hearing, normal speech, PERRL, tongue midline Coordination/Gait: normal finger to nose Skin Exam: normal color, warm, dry SpO2 Interpretation: normal O2 Delivery: Room Air - Course Nursing assessment & vital signs reviewed: Yes EKG Interpreted by Me: RATE (69), Sinus Rhythm, NORMAL AXIS, NORMAL QRS, Other (Borderline prolonged [place] interval. Left ventricular hypertrophy. No evidence of any acute ischemic changes on today's twelve-lead EKG.) Ordered Tests: Active Orders 24 hr Category Date Time Status Motor Generator Set Operator STAT Care 01/04/23 13:37 Active EKG-ER Only STAT Care 01/04/23 13:37 Active IV Insertion STAT Care 01/04/23 13:37 Active POCT Glucose Check STAT Care 01/04/23 13:37 Active CERVICAL SPINE WO CONTRAST [CT] Stat Exams 01/04/23 13:43 Completed HEAD WITHOUT CONTRAST [CT] Stat Exams 01/04/23 13:37 Completed LUMBAR LIMITED (2 OR 3 VIEWS) Stat Exams 01/04/23 15:06 Completed CBC W DIFF Stat Lab 01/04/23 13:55 Completed CMP Stat Lab 01/04/23 13:55 Completed MAGNESIUM Stat Lab 01/04/23 13:55 Completed TROPONIN Q4H Lab 01/04/23 13:55 Completed TROPONIN Q4H Lab 01/04/23 17:15 Completed TROPONIN Q4H Lab 01/04/23 21:45 Ordered UA W/RFX UR CULTURE Stat Lab 01/04/23 16:17 Completed Lab/Rad Data: Laboratory Result Diagrams 01/04/23 13:55 01/04/23 13:55 Laboratory Results 01/04/23 01/04/23 01/04/23 Range/Units 17:15 16:17 13:55 WBC (4.0-10.5) x10^3/uL RBC (4.1-5.4) x10^6/uL Hgb (12.0-16.0) g/dL Hct (35-47) % MCV (78-100) fL MCH (26-32) pg MCHC (32-36) g/dL RDW (11.5-14.0) % Plt Count (150-450) x10^3/uL MPV (7.5-11.0) fL Gran % (36.0-66.0) % Immature Gran % (Auto) (0.00-0.4) % Nucleat RBC Rel Count (0.00-0.1) % Eos # (Auto) (0-0.5) x10^3/uL Immature Gran # (Auto) (0.00-0.03) x10^3u/L Absolute Lymphs (auto) (1.0-4.6) x10^3/uL Absolute Monos (auto) (0.0-1.3) x10^3/uL Absolute Nucleated RBC (0.00-0.01) x10^3u/L Lymphocytes % (24.0-44.0) % Monocytes % (0.0-12.0) % Eosinophils % (0.00-5.0) % Basophils % (0.0-0.4) % Absolute Granulocytes (1.4-6.9) x10^3/uL Basophils # (0-0.4) x10^3/uL Sodium (137-145) mmol/L Potassium (3.5-5.1) mmol/L Chloride (98-107) mmol/L Carbon Dioxide (22-30) mmol/L Anion Gap (5-15) MEQ/L BUN (7-17) mg/dL Creatinine (0.52-1.04) mg/dL Estimated GFR ML/MIN Glucose (74-106) mg/dL Calcium (8.4-10.2) mg/dL Magnesium (1.6-2.3) mg/dL Total Bilirubin (0.2-1.3) mg/dL AST (14-36) U/L ALT (0-35) U/L Alkaline Phosphatase (38-126) U/L Troponin I < 0.012 < 0.012 (0.000-0.034) ng/mL Serum Total Protein (6.3-8.2) g/dL Albumin (3.5-5.0) g/dL Urine Color Yellow (Yellow) Urine Appearance Clear (Clear) Urine pH 6.5 (4.6-8.0) Ur Specific [place] 1.010 (1.005-1.030) Urine Protein Negative (Negative) Urine Glucose (UA) Negative (Negative) mg/dL Urine Ketones Negative (Negative) Urine Blood Negative (Negative) Urine Nitrite Negative (Negative) Urine Bilirubin Negative (Negative) Urine Urobilinogen 1.0 A (0.2) mg/dL Ur Leukocyte Esterase Negative (Negative) U Hyaline Cast (Auto) NONE SEEN (0-2) /LPF Urine Microscopic RBC 0-2 (0-5) /HPF Urine Microscopic WBC 0-2 (0-5) /HPF Ur Epithelial Cells None Seen (None Seen) /HPF Urine Bacteria None Seen (None Seen) /HPF Urine Culture Reflexed NO (NO) 01/04/23 01/04/23 Range/Units 13:55 13:55 WBC 7.6 (4.0-10.5) x10^3/uL RBC 4.40 (4.1-5.4) x10^6/uL Hgb 14.1 (12.0-16.0) g/dL Hct 42.5 (35-47) % MCV 96.6 (78-100) fL MCH 32.0 (26-32) pg MCHC 33.2 (32-36) g/dL RDW 12.7 (11.5-14.0) % Plt Count 174 (150-450) x10^3/uL MPV 10.9 (7.5-11.0) fL Gran % 78.9 H (36.0-66.0) % Immature Gran % (Auto) 0.3 (0.00-0.4) % Nucleat RBC Rel Count 0.0 (0.00-0.1) % Eos # (Auto) 0.03 (0-0.5) x10^3/uL Immature Gran # (Auto) 0.02 (0.00-0.03) x10^3u/L Absolute Lymphs (auto) 1.20 (1.0-4.6) x10^3/uL Absolute Monos (auto) 0.30 (0.0-1.3) x10^3/uL Absolute Nucleated RBC 0.00 (0.00-0.01) x10^3u/L Lymphocytes % 15.8 L (24.0-44.0) % Monocytes % 3.9 (0.0-12.0) % Eosinophils % 0.4 (0.00-5.0) % Basophils % 0.7 (0.0-0.4) % Absolute Granulocytes 6.00 (1.4-6.9) x10^3/uL Basophils # 0.05 (0-0.4) x10^3/uL Sodium 136 L (137-145) mmol/L Potassium 3.9 (3.5-5.1) mmol/L Chloride 100 (98-107) mmol/L Carbon Dioxide 24 (22-30) mmol/L Anion Gap 15.4 H (5-15) MEQ/L BUN 22 H (7-17) mg/dL Creatinine 1.05 H (0.52-1.04) mg/dL Estimated GFR 52.8 ML/MIN Glucose 169 H (74-106) mg/dL Calcium 8.6 (8.4-10.2) mg/dL Magnesium 1.9 (1.6-2.3) mg/dL Total Bilirubin 0.80 (0.2-1.3) mg/dL AST 29 (14-36) U/L ALT 23 (0-35) U/L Alkaline Phosphatase 115 (38-126) U/L Troponin I (0.000-0.034) ng/mL Serum Total Protein 6.9 (6.3-8.2) g/dL Albumin 4.1 (3.5-5.0) g/dL Urine Color (Yellow) Urine Appearance (Clear) Urine pH (4.6-8.0) Ur Specific [place] (1.005-1.030) Urine Protein (Negative) Urine Glucose (UA) (Negative) mg/dL Urine Ketones (Negative) Urine Blood (Negative) Urine Nitrite (Negative) Urine Bilirubin (Negative) Urine Urobilinogen (0.2) mg/dL Ur Leukocyte Esterase (Negative) U Hyaline Cast (Auto) (0-2) /LPF Urine Microscopic RBC (0-5) /HPF Urine Microscopic WBC (0-5) /HPF Ur Epithelial Cells (None Seen) /HPF Urine Bacteria (None Seen) /HPF Urine Culture Reflexed (NO) - Progress Progress: improved, re-examined Progress Note: 01/04/23 15:04 CAT scan of the head without contrast shows no acute intracranial abnormality. CT scan of the cervical spine without contrast shows degenerative changes. There is no acute fracture or subluxation. This patient's medical issue is 1 of moderate complexity. The level complexity and the work-up performed is based on the review of the patient's past medical history, review of the patient's medication list, review of the patient's drug allergy list, history of present illness and physical findings on examination. The work-up includes CT scan of the head, CT scan of the cervical spine, twelve- lead EKG, troponin, CBC, CMP and urinalysis. We also are planning on performing an x-ray of the lumbar spine as the patient is now complaining of some lumbar spine pain. 01/04/23 16:38 Lumbar spine x-ray was interpreted by the radiologist and I reviewed his impression. There is right hip degenerative changes. The thoracolumbar spine visualized shows degenerative changes. There is no acute fracture or subluxation. 01/04/23 18:17 Patient has no chest pain. She is not dizzy. The repeat 3-hour troponin is normal. The repeat twelve-lead EKG is unchanged from the twelve-lead EKG that was performed earlier during this emergency room visit. It was performed at 1741 on 01/04/2023 shows a heart rate of 54. Sinus rhythm. There is no evidence of any acute ischemic changes. There is normal QRS. There is normal intervals. There is probable left ventricular hypertrophy. Counseled pt/family regarding: lab results, diagnosis, need for follow-up, rad results Medical Desision Making - Independent Historian Additional History obtained from: Child (Daughter) - Diagnostic Testing Diagnostic test were ordered, analyzed, and reviewed by me: Yes Radiological Interpretation: Reviewed by me, Teleradiologist Report - Risk of complications Low Risk: Low risk of morbidity from additional dx testing or treatment - Departure Departure Disposition: Home Clinical Impression: Episode of syncope, Fall with no significant injury Condition: Stable Critical Care Time: No Referrals: JASON RUEDA MD [Primary Care Provider] - Follow up/PCP as directed Additional Instructions: Take your medication as prescribed. Drink plenty of liquid. Follow-up with your primary care physician and vector control assistant on the morning of 01/07/2023 for further evaluation management. Return to the emergency department if symptoms recur.
[2023-01-04 13:59] LABS: BASOPHIL % 0.7 % (0.0-0.4); Basophil (Absolute #) 0.05 x10^3/uL (0-0.4); Eosinophil % 0.4 % (0.00-5.0); Eosinophil (Absolute #) 0.03 x10^3/uL (0-0.5); Hematocrit 42.5 % (35-47); Hemoglobin 14.1 g/dL (12.0-16.0); IMMATURE GRAN # 0.02 x10^3u/L (0.00-0.03); IMMATURE GRAN % 0.3 % (0.00-0.4); Lymphocytes % 15.8 % (24.0-44.0); Mean Cell Volume 96.6 fL (78-100); Mean Corpuscular Hgb Concent. 33.2 g/dL (32-36); Mean Platelet Volume 10.9 fL (7.5-11.0); Monocytes % 3.9 % (0.0-12.0); Neutrophil % 78.9 % (36.0-66.0); Platelet Count 174 x10^3/uL (150-450); Red Cell Distribution Width 12.7 % (11.5-14.0); White Blood Count 7.6 x10^3/uL (4.0-10.5)
[2023-01-04 14:12] LABS: ALBUMIN 4.1 g/dL (3.5-5.0); ANION GAP 15.4 MEQ/L (5-15); BILIRUBIN,TOTAL 0.8 mg/dL (0.2-1.3); Calcium 8.6 mg/dL (8.4-10.2); Creatinine 1 1.05 mg/dL (0.52-1.04); EST GLOMERULAR FILTRATION RATE 52.8 ML/MIN; MAGNESIUM 1.9 mg/dL (1.6-2.3); Potassium 3.9 mmol/L (3.5-5.1); Total Protein 6.9 g/dL (6.3-8.2)
--- NOTE | 2023-01-04 14:36 | XRAY ---
Indication: Head injury following syncope. Multiple contiguous axial images obtained through the head without contrast. Comparison: January 05, 2021 Again age-appropriate global atrophy. No acute intracranial hemorrhage, abnormal extra-axial fluid collection, or mass effect. Fourth ventricle is midline without hydrocephalus. Barrientos-white matter differentiation preserved. Bony calvarium intact. Visualized paranasal sinuses and mastoid air cells are clear. Impression: Continued negative CT head without contrast exam.
--- NOTE | 2023-01-04 14:42 | XRAY ---
Indication: Head injury following syncope. Multiple contiguous axial images obtained through the cervical spine. Sagittal and coronal reformatted images obtained. Comparison: None Age-related osteopenia. Deformity involving left C1-C2 articulation either degenerative versus old fracture. Additional degenerative changes seen of the atlantoaxial articulation with mild/moderate multilevel bilateral degenerative facet arthropathy and C5-C7 degenerative endplate spurring. No acute fracture, suspicious bony lesions, or spinal canal stenosis. Sagittal and coronal reformatted images demonstrates mild dextroscoliosis. Lordotic straightening either positional versus paraspinal spasm. C5-C7 degenerative disc space narrowing. No acute compression fracture, subluxation, or jumped facet. Normal appearing craniocervical junction. Visualized noncontrasted soft tissues demonstrates heterogeneous thyroid gland with 1.7 cm right thyroid hypodense nodule/cyst. Lung apices clear. Impression: 1. Negative for acute fracture/subluxation. 2. Incidental chronic findings detailed above.
[2023-01-04 16:29] LABS: Appearance Clear (Clear); Bacteria None Seen /HPF (None Seen); Bilirubin Negative (Negative); Blood Negative (Negative); Epithelial Cells None Seen /HPF (None Seen); Glucose, Urine Negative (Negative); Hyaline Casts NONE SEEN /LPF (0-2); Ketones Negative (Negative); Leukocyte Esterase Negative (Negative); Nitrite Negative (Negative); Ph 6.5 (4.6-8.0); Protein,Urine Dip Negative (Negative); RBC 0-2 /HPF (0-5); WBC 0-2 /HPF (0-5)
[2023-01-04 16:32] LABS: ADD URINE CULTURE? NO (NO)
--- NOTE | 2023-01-04 16:32 | XRAY ---
Indication: Pain following fall. Comparison: None 3 view lumbar spine demonstrates 5 lumbar segments in normal alignment with osteopenia, mild/moderate multilevel thoracal lumbar generative spondylosis greatest at L5-S1, incompletely visualized right hip degenerative arthropathy, mild aortic calcifications, and cholecystectomy clips. No other bony, articular, or soft tissue abnormalities.
[2023-01-04 18:41] VITALS: BP 110/62; PULSE 70; O2SAT 98
== END 2023-01-04 18:39 | disposition home or self-care (01) ==
LOC: ED 13:33
DX: R55 Syncope and collapse (principal); R51.9 Headache, unspecified; M54.2 Cervicalgia; W19.XXXA Unspecified fall, initial encounter; E78.5 Hyperlipidemia, unspecified; I11.0 Hypertensive heart disease with heart failure; I50.9 Heart failure, unspecified; Z79.01 Long term (current) use of anticoagulants; Z79.899 Other long term (current) drug therapy
CPT/HCPCS: 36000; 36415; 70450; 72100; 72125; 80053; 81001; 83735; 84484; 85025; 93005; 93041; 99284